=== PATIENT | female | born 1935 | race Caucasian/White ===

== ENCOUNTER → 2017-08-07 | Outpatient (CLI) | payer OTHER ==
--- NOTE | 2017-08-10 13:35 | MAMMOGRAPHY REPORT ---
BILATERAL DIGITAL SCREENING MAMMOGRAM WITH CAD: 08/07/2017 CLINICAL HISTORY: Routine screening. Patient has no complaints. TECHNIQUE: Current study was also evaluated with a Computer Aided Detection (CAD) system. Bilateral CC and MLO views were obtained. COMPARISON: Comparison is made to exams dated: 08/05/2016 mammogram, 08/02/2015 mammogram, 07/26/2012 mammogram, 07/24/2011 mammogram, and 08/01/2014 mammogram - [facility]. BREAST COMPOSITION: There are scattered areas of fibroglandular density in both breasts. FINDINGS: No suspicious masses, calcifications, or areas of architectural distortion are noted in ei ther breast. There has been no significant interval change compared to prior exams. Scattered bilater al benign-appearing calcifications are not significantly changed. IMPRESSION: ACR BI-RADS CATEGORY 2: BENIGN There is no mammographic evidence of malignancy. A 1 year screening mammogram is recommended. The pa tient will receive written notification of the results. Approximately 10% of breast cancers are not detected with mammography. A negative mammographic report should not delay biopsy if a clinically suggestive mass is present. Yvonne Guzman M.D. ah/:08/07/2017 16:42:19 Nail Expert: Verenice GREEN(Ada)(Sachi), [facility] letter sent: Normal 1/2 BI-RADS Code: ACR BI-RADS Category 2: Benign
== END | disposition home or self-care (01) ==
LOC: C.MAMM 10:03
PROVIDERS: ATTEND Internal Medicine
DX: Z12.31 Encounter for screening mammogram for malignant neoplasm of breast (principal)

== ENCOUNTER → 2017-09-07 | Outpatient (CLI) | payer OTHER ==
[2017-09-07 17:15] LABS: ALT/SGPT 19 U/L (12-78); BLOOD UREA NITROGEN 20 mg/dl (7-18); CALCIUM 10.1 mg/dl (8.5-10.1); CARBON DIOXIDE 28 mmol/L (21-32); CHLORIDE 104 mmol/L (98-107); CHOLESTEROL 166 mg/dl (0-200); CREATININE 0.97 mg/dl (0.60-1.20); GLUCOSE 90 mg/dl (70-99); SODIUM 140 mmol/L (136-145)
[2017-09-07 17:17] LABS: HEMATOCRIT 43.9 % (37-47); MEAN CORPUSCULAR HEMOGLOBIN 30.7 pg (25-34); MEAN CORPUSCULAR HGB CONC 34.2 g/dl (32-36); MEAN PLATELET VOLUME 10.5 fL (7.4-10.4); PLATELET COUNT 203 K/uL (130-400); RED BLOOD COUNT 4.88 M/uL (4.2-5.4)
[2017-09-07 17:24] LABS: ALB/GLOB RATIO 0.9 (0.9-2); ALKALINE PHOSPHATASE 91 U/L (45-117); AST/SGOT 13 U/L (15-37); HDL CHOLESTEROL 56 mg/dl; LDL CHOLESTEROL CALCULATED 57 mg/dl; TRIGLYCERIDES 263 mg/dl (0-150); VERY LOW DENSITY LIPOPROT CALC 53 mg/dl
[2017-09-08 05:50] LABS: ESTIMATED AVERAGE GLUCOSE 114 mg/dl; HA1C FLAG Normal (Normal)
== END | disposition home or self-care (01) ==
LOC: C.LABBFT 11:42
PROVIDERS: ATTEND Internal Medicine
DX: R73.01 Impaired fasting glucose (principal); E78.5 Hyperlipidemia, unspecified

== ENCOUNTER 2023-01-02 14:06 | Inpatient (IN) ==
[2023-01-02] MEDS ORDERED: SODIUM CHLORIDE 0.9% 1000ML 1,000 ML IV ONE (14:34)
--- NOTE | 2023-01-02 14:38 | Emergency Department Note ---
Impression & Plan MIRTHA (acute kidney injury), Acute UTI, Leukocytosis, Elevated troponin ED Provider Note NAME: MARCIA RUSSELL AGE: 87 SEX: F : 1935 ARRIVES VIA: Ambulance INFORMANT: Patient, ED PROVIDER(S): Gregg Blount DO CHIEF COMPLAINT: Confusion, falls and weakness HPI: Patient is an 87-year-old female with a past medical history of TIA, hyperlipidemia who presents to the ER for recurrent falls, weakness, and confusion. notes that she has been more confused over the past 2 days. She fell yesterday and again today. She did hit her head slightly today. She complains of right hip pain from the fall today. Denies any headache. No change in vision. No neck pain. No chest pain or shortness of breath. She denies any belly pain. No dysuria, urgency, or frequency. No other exacerbating or remitting factors. No recorded fevers that they are aware of at home. PAST MEDICAL HISTORY:See Below PAST SURGICAL HISTORY:See Below FAMILY HISTORY:See Below SOCIAL HISTORY:See Below HOME MEDICATIONS:See Below ALLERGIES:See Below VITALS:See Below PHYSICAL EXAMINATION: GENERAL: Sitting up in bed, alert, extremely hard of hearing, no acute distress HEAD:NC/AT EYE EXAM: normal conjunctiva. PERRL and EOM's grossly intact. OROPHARYNX: no exudate, no erythema, lips, buccal mucosa, and tongue normal and mucous membranes are moist NECK: supple, no nuchal rigidity, no adenopathy, non-tender LUNGS: Clear to auscultation. Normal chest wall mechanics HEART: no murmurs, S1 normal and S2 normal ABDOMEN: abdomen soft, non-tender, normo-active bowel sounds, no masses, no rebound or guarding. UPPER EXTREMITIES: upper extremities are grossly normal. LOWER EXTREMITIES: No pitting edema. NEURO EXAM: Oriented to person place but not year, cranial nerves II-XII intact, normal speech, no weakness of arms, weakness with a symmetrical in the bilateral lower extremities. No drift. Finger to nose intact. Gross sensation intact. MEDICAL DECISION MAKING: Patient is an 87-year-old female who presents the ER for weakness associate with nausea vomiting and diarrhea. She does have a low-grade fever and slightly tachycardic. Labs are suggestive of leukocytosis of 15,000. No significant anemia. BMP with creatinine 1.4. Troponin was significantly elevated at 180. Lipase normal. UA consistent with UTI which I do favor is likely cause of her symptoms. She denies any chest pain or shortness of breath. EKG does show nonspecific ST wave changes. Patient was given 2 g IV Rocephin as well as IV fluids and discussed with [facility] hospitalist for further evaluation management and treatment. Discussed with Pt concerning signs and symptoms to watch out for. Pt was instructed to follow up with their PCP and discussed with the patient their option to return to the ED at anytime for persistent or worsening symptoms. The appropriate anticipatory guidance and out-patient management, including indications for return to the emergency department, were explained at length to the patient and understood. Triage Nursing notes reviewed. Limited review of prior medical records performed Vital Signs: reviewed and remarkable for no significant abnormalities Differential diagnosis: Differential diagnoses includes but is not limited to toxic, metabolic, infectious, traumatic, cardiac, neurologic, hematologic, psychiatric and inflammatory etiologies. ER treatment provided: See below Diagnostics interpreted by me include EKG and cardiac monitoring as listed below: -Cardiac Monitoring: An order was placed for continuous cardiac monitoring. The monitor shows a rate of 101 with sinus rhythm. -ECG: Sinus tachycardia rate of 100 Left axis No PVCs ST wave depressions V4 through V6 QTc 436 -Laboratory studies:Interpreted by me as stated above in MDM and shown below. Imaging studies: Xrays: As interpreted by me: X-ray of the pelvis and right hip show no acute fracture per my read CTs show: CT head was negative per radiology Consultation(s): Discussed with the hospitalist for further evaluation management and treatment Procedures:none Critical Care: None Past Med/Surg History Medical History (Updated 01/02/23 @ 21:08 by Gregg Blount DO) CKD (chronic kidney disease), stage III Hard of hearing HTN (hypertension) Surgical History History of cataract surgery LEFT History of colonoscopy S/P appendectomy HX S/P total knee arthroplasty HX bilateral, [place] [facility] [place] History Father Pancreatic cancer Mother Alzheimer disease Sister Non Hodgkin's lymphoma Denies family history of Ovarian cancer Prostate cancer Myocardial infarction Breast cancer Colorectal cancer Social History Smoking Status: Never smoker Second Hand Exposure: No; Hx Alcohol Use: No Hx Substance Use: No Preferred Language: Kinyarwanda Communication Ability: Effective Visual Impairment: Limited Hearing Ability: Use of Hearing Aid Co Teacher Required: No Beliefs That Will Affect Care: None marital status: Current Living Situation: Spouse current occupational status: retired Feels Safe at Home: Yes Childhood Exposure to Second-Hand Smoke: No Diet Comment: Regular caffeine: Yes (little amount) during the past year weight has: remained stable Dental Care, Regularly: Yes Physical Activity Frequency: Does not Exercise Seatbelt Use: always Sunscreen Use: No Assistive Devices: Glasses and Hearing Aid - Bilateral Allergies Allergies Allergy/AdvReac Type Severity Reaction Status Date / Time No Known Allergies Allergy Verified 01/02/23 16:09 Home Meds Home Medications Medication Instructions Recorded Confirmed cholecalciferol (vitamin D3) 50 50 mcg PO DAILY 11/14/20 01/02/23 mcg (2,000 unit) capsule acetaminophen 500 mg tablet 500 - 1,000 mg PO DIRECTED PRN 01/02/23 01/02/23 (Tylenol Extra Strength) PAIN/FEVER aspirin 81 mg tablet,delayed 81 mg PO DAILY 01/02/23 01/02/23 release lisinopril 20 mg tablet 20 mg PO QAM 01/02/23 01/02/23 Results & Data (ED) Vital Signs Vital Signs - 24 hr 01/02/23 14:13 01/02/23 14:33 01/02/23 14:45 Temperature 37.7 C H Temperature Source Oral Pulse Rate 101 H 99 H 96 H Pulse Rate from SpO2 Sensor Pulse Rhythm Regular Regular Pulse Strength Normal Respiratory Rate 20 Respiratory Effort / Characteristics Non-Labored Spontaneous Respiratory Depth Normal Respiratory Pattern Regular Blood Pressure 159/93 H Blood Pressure Mean 115 Blood Pressure Position Lying Pulse Oximetry 92 95 Oxygen Delivery Method Room Air Room Air Sepsis Recent Fever Within 48 Hours No Sepsis New/Unexplained Change in Mental Status Yes Sepsis Action Taken by Nursing No Action Required 01/02/23 14:28 01/02/23 14:30 01/02/23 14:40 Temperature Temperature Source Pulse Rate 97 H 99 H 97 H Pulse Rate from SpO2 Sensor 96 H 101 H Pulse Rhythm Pulse Strength Respiratory Rate 33 H 29 H 26 H Respiratory Effort / Characteristics Respiratory Depth Respiratory Pattern Blood Pressure Blood Pressure Mean Blood Pressure Position Pulse Oximetry 92 92 Oxygen Delivery Method Sepsis Recent Fever Within 48 Hours Sepsis New/Unexplained Change in Mental Status Sepsis Action Taken by Nursing 01/02/23 14:50 01/02/23 15:00 01/02/23 15:10 Temperature Temperature Source Pulse Rate 94 H 94 H 93 H Pulse Rate from SpO2 Sensor 95 H 93 H Pulse Rhythm Pulse Strength Respiratory Rate 31 H 29 H 36 H Respiratory Effort / Characteristics Respiratory Depth Respiratory Pattern Blood Pressure Blood Pressure Mean Blood Pressure Position Pulse Oximetry 93 93 93 Oxygen Delivery Method Sepsis Recent Fever Within 48 Hours Sepsis New/Unexplained Change in Mental Status Sepsis Action Taken by Nursing 01/02/23 15:31 01/02/23 15:31 01/02/23 15:40 Temperature Temperature Source Pulse Rate 97 H Pulse Rate from SpO2 Sensor 96 H 97 H Pulse Rhythm Pulse Strength Respiratory Rate 24 Respiratory Effort / Characteristics Respiratory Depth Respiratory Pattern Blood Pressure 125/77 Blood Pressure Mean 93 Blood Pressure Position Pulse Oximetry 93 94 Oxygen Delivery Method Sepsis Recent Fever Within 48 Hours Sepsis New/Unexplained Change in Mental Status Sepsis Action Taken by Nursing 01/02/23 15:50 01/02/23 16:00 01/02/23 16:00 Temperature Temperature Source Pulse Rate 93 H 90 Pulse Rate from SpO2 Sensor 93 H 91 H Pulse Rhythm Pulse Strength Respiratory Rate 25 H 25 H Respiratory Effort / Characteristics Respiratory Depth Respiratory Pattern Blood Pressure 119/68 Blood Pressure Mean 85 Blood Pressure Position Pulse Oximetry 94 96 Oxygen Delivery Method Sepsis Recent Fever Within 48 Hours Sepsis New/Unexplained Change in Mental Status Sepsis Action Taken by Nursing 01/02/23 16:10 01/02/23 16:20 01/02/23 16:30 Temperature Temperature Source Pulse Rate 92 H 88 95 H Pulse Rate from SpO2 Sensor 93 H 89 Pulse Rhythm Pulse Strength Respiratory Rate 19 27 H 29 H Respiratory Effort / Characteristics Respiratory Depth Respiratory Pattern Blood Pressure Blood Pressure Mean Blood Pressure Position Pulse Oximetry 95 96 Oxygen Delivery Method Sepsis Recent Fever Within 48 Hours Sepsis New/Unexplained Change in Mental Status Sepsis Action Taken by Nursing Laboratory Data 01/02/23 14:15 01/02/23 14:15 Lab Results 01/02/23 01/02/23 01/02/23 Range/Units 14:15 14:15 14:40 WBC 15.28 H (4.8-10.8) K/ul RBC 4.55 (4.20-5.40) M/uL Hgb 13.8 (12.0-16.0) g/dl Hct 40.9 (37.0-47.0) % MCV 89.9 (80.0-100.0) fL MCH 30.3 (25.0-34.0) pg MCHC 33.7 (32.0-36.0) g/dL RDW Std Deviation 44.8 (36.4-46.3) fL RDW Coeff of Chris 13.7 (11.5-14.5) % Plt Count 164 (130-400) K/uL MPV 9.9 (9.4-12.4) fL Immature Gran % (Auto) 0.9 % Neut % (Auto) 93.9 % Lymph % (Auto) 2.6 % [place] % (Auto) 2.4 % Eos % (Auto) 0.0 % Baso % (Auto) 0.2 % Neut # (Auto) 14.36 H (1.40-6.50) K/uL Lymph # (Auto) 0.39 L (1.2-3.4) K/uL [place] # (Auto) 0.37 (0.11-0.59) K/uL Eos # (Auto) 0.00 (0-0.50) K/uL Baso # (Auto) 0.03 (0-0.2) K/uL Immature Gran # (Auto) 0.13 (0.01-0.20) K/uL Echinocytes 1+ Sodium 134 L (136-145) mmol/L Potassium 3.9 (3.5-5.1) mmol/L Chloride 100 (98-107) mmol/L Carbon Dioxide 25 (21-32) mmol/L Anion Gap 9 (3-11) BUN 31 H (6-23) mg/dl Creatinine 1.41 H (0.6-1.2) mg/dl Est Cr Clr Drug Dosing 30.7 ml/min Est GFR ( Amer) 38.5 ml/min Est GFR (Non-Af Amer) 33.2 ml/min BUN/Creatinine Ratio 22.0 H (10-20) Glucose 165 H (70-99(Fasting)) mg/dl Calcium 9.7 (8.5-10.1) mg/dl Total Bilirubin 1.4 H (0.2-1.0) mg/dl AST 16 (13-39) U/L ALT 14 (7-52) U/L Alkaline Phosphatase 80 (34-104) U/L Troponin I High Sens 188.0 H* (0-14) pg/ml Total Protein 7.3 (6.0-8.3) gm/dl Albumin 3.8 (3.4-5.0) gm/dl Globulin 3.5 (2.5-4.0) gm/dl Albumin/Globulin Ratio 1.1 (0.9-2) Lipase 19 (11-82) U/L Urine Color Yellow Urine Appearance Turbid A (Clear) Urine pH 5.5 (4.5-7.5) Ur Specific [place] 1.016 (1.000-1.030) Urine Protein 2+ H (Negative) Urine Glucose (UA) Negative (Negative) Urine Ketones Trace H (Negative) Urine Blood 3+ H (Negative) Urine Nitrite Positive A (Negative) Urine Bilirubin Negative (Negative) Urine Urobilinogen Negative (Negative) Ur Leukocyte Esterase 3+ H (Negative) Urine WBC (Auto) >30 H (0-5) /hpf Urine RBC (Auto) >30 H (0-4) /hpf U Hyaline Cast (Auto) 0 (0-5) /lpf U Epithel Cells (Auto) 0-5 (0-5) /lpf Urine Bacteria (Auto) 4+ H (Negative) SARS-CoV-2, RNA, NAAT (NEGATIVE) 01/02/23 Range/Units 14:45 WBC (4.8-10.8) K/ul RBC (4.20-5.40) M/uL Hgb (12.0-16.0) g/dl Hct (37.0-47.0) % MCV (80.0-100.0) fL MCH (25.0-34.0) pg MCHC (32.0-36.0) g/dL RDW Std Deviation (36.4-46.3) fL RDW Coeff of Chris (11.5-14.5) % Plt Count (130-400) K/uL MPV (9.4-12.4) fL Immature Gran % (Auto) % Neut % (Auto) % Lymph % (Auto) % [place] % (Auto) % Eos % (Auto) % Baso % (Auto) % Neut # (Auto) (1.40-6.50) K/uL Lymph # (Auto) (1.2-3.4) K/uL [place] # (Auto) (0.11-0.59) K/uL Eos # (Auto) (0-0.50) K/uL Baso # (Auto) (0-0.2) K/uL Immature Gran # (Auto) (0.01-0.20) K/uL Echinocytes Sodium (136-145) mmol/L Potassium (3.5-5.1) mmol/L Chloride (98-107) mmol/L Carbon Dioxide (21-32) mmol/L Anion Gap (3-11) BUN (6-23) mg/dl Creatinine (0.6-1.2) mg/dl Est Cr Clr Drug Dosing ml/min Est GFR ( Amer) ml/min Est GFR (Non-Af Amer) ml/min BUN/Creatinine Ratio (10-20) Glucose (70-99(Fasting)) mg/dl Calcium (8.5-10.1) mg/dl Total Bilirubin (0.2-1.0) mg/dl AST (13-39) U/L ALT (7-52) U/L Alkaline Phosphatase (34-104) U/L Troponin I High Sens (0-14) pg/ml Total Protein (6.0-8.3) gm/dl Albumin (3.4-5.0) gm/dl Globulin (2.5-4.0) gm/dl Albumin/Globulin Ratio (0.9-2) Lipase (11-82) U/L Urine Color Urine Appearance (Clear) Urine pH (4.5-7.5) Ur Specific [place] (1.000-1.030) Urine Protein (Negative) Urine Glucose (UA) (Negative) Urine Ketones (Negative) Urine Blood (Negative) Urine Nitrite (Negative) Urine Bilirubin (Negative) Urine Urobilinogen (Negative) Ur Leukocyte Esterase (Negative) Urine WBC (Auto) (0-5) /hpf Urine RBC (Auto) (0-4) /hpf U Hyaline Cast (Auto) (0-5) /lpf U Epithel Cells (Auto) (0-5) /lpf Urine Bacteria (Auto) (Negative) SARS-CoV-2, RNA, NAAT NEGATIVE (NEGATIVE) Administered Medications Sodium Chloride (Nss 1000ml) 1,000 mls @ 80 mls/hr IV .[id number] KRISTEN Stop: 01/03/23 07:59 Last Admin: 01/02/23 20:50 Dose: 80 mls/hr Documented By: GARO Discontinued Medications Sodium Chloride (Nss 1000ml) 1,000 mls @ 999 mls/hr IV .[id number] ONE Stop: 01/02/23 15:34 Last Infusion: 01/02/23 15:34 Dose: 0 mls/hr Documented By: Admin: 01/02/23 14:48 Dose: 999 mls/hr Documented By: AMBROSE Ceftriaxone Sodium (Rocephin) 2,000 mg in 70 mls @ 140 mls/hr IV NOW STA Stop: 01/02/23 16:10 Last Infusion: 01/02/23 16:29 Dose: 0 mls/hr Documented By: Admin: 01/02/23 15:53 Dose: 140 mls/hr Documented By: AMBROSE Sodium Chloride (Nss 1000ml) 1,000 mls @ 65 mls/hr IV .[id number] [facility] Stop: 01/04/23 01:46 Last Admin: 01/02/23 20:48 Dose: Not Given Documented By: GARO Lisinopril (Lisinopril 20 Mg Tab) 20 mg PO NOW STA Stop: 01/02/23 17:09 Last Admin: 01/02/23 17:43 Dose: 20 mg Documented By: AMBROSE Imaging Data Radiologist's Impression: Head CT 01/02/23 14:34 CT head/brain wo con CLINICAL HISTORY: 87 years-old Female with fall weak. Acute head injury status post fall. Acute weakness TECHNIQUE: Multiple axial CT images of the head were obtained without contrast. A dose lowering technique was utilized adhering to the principles of ALARA. CT DOSE: 823.94 mGycm COMPARISON: 07/13/2019 FINDINGS: No acute intracranial hemorrhage, midline shift, intracranial mass, hydrocephalu s, territorial ischemia or abnormal extra-axial collection. Involutional changes with chronic microvascular ischemic disease. Cerebral vascular calcifications. The study is motion degraded. The calvarium is intact. Small left scalp contusion. Prior bilateral lens repair. The paranasal sinuses, mastoid air cells, and middle ear cavities are clear. IMPRESSION: No acute intracranial abnormality or calvarial fracture. ACT 112: Negative or not required by law. The above report was generated using voice recognition software. It may contain grammatical, syntax or spelling errors. Electronically signed by: Dio Pan M.D. 01/02/2023 3:34 PM Hip/Pelvis X-Ray 01/02/23 14:34 XR hip RT 2V w pelvis CLINICAL HISTORY: r hip pain. Fall. COMPARISON STUDY: None. FINDINGS: No fracture or dislocation within the pelvis or hips. The sacrum is intact. Mild degenerative changes within the bilateral hips. Soft tissues are unremarkable. IMPRESSION: No fracture or dislocation within the pelvis or hips. ACT 112: Negative or not required by law. Electronically signed by: Dell Landaverde M.D. 01/02/2023 5:00 PM Discharge Plan Visit Data Chief Complaint: Confusion ED Provider: Gregg Blount Discharge Problem: MIRTHA (acute kidney injury), Acute UTI, Leukocytosis, Elevated troponin Patient Disposition: Admitted As Inpatient Discharge Instructions Interventions: ED Discharge Assessment Last Done: 01/02/23 20:17
[2023-01-02 14:52] LABS: Hematocrit (blood only) 40.9 % (37.0-47.0); Hemoglobin 13.8 g/dl (12.0-16.0); Mean Corpuscular Hemoglobin 30.3 pg (25.0-34.0); Mean Corpuscular Hgb Conc 33.7 g/dL (32.0-36.0); Mean Corpuscular Volume 89.9 fL (80.0-100.0); Mean Platelet Volume 9.9 fL (9.4-12.4); Platelet Count 164 K/uL (130-400); RDW Coefficient of Variation 13.7 % (11.5-14.5); RDW Standard Deviation 44.8 fL (36.4-46.3); Red Blood Count 4.55 M/uL (4.20-5.40); White Blood Count 15.28 K/ul (4.8-10.8)
[2023-01-02 15:02] LABS: Appearance Urine Turbid (Clear); Bacteria Urine Automated 4+ (Negative); Bilirubin Urine Negative (Negative); Blood Urine 3+ (Negative); Cast Urine Automated 0 /lpf (0-5); Color Urine Yellow; Epithelial Cell Urine Auto 0-5 /lpf (0-5); Glucose Urine UA Negative (Negative); Ketones Urine Trace (Negative); Leukocyte Esterase Urine 3+ (Negative); Nitrite Urine Positive (Negative); Protein Urine 2+ (Negative); RBC Urine Automated >30 /hpf (0-4); Specific Gravity Urine 1.016 (1.000-1.030); Urobilinogen Urine Negative (Negative); WBC Urine Automated >30 /hpf (0-5); pH Urine 5.5 (4.5-7.5)
[2023-01-02 15:09] LABS: Albumin Globulin Ratio 1.1 (0.9-2); Albumin Level 3.8 gm/dl (3.4-5.0); Bilirubin,Total 1.4 mg/dl (0.2-1.0); Calcium 9.7 mg/dl (8.5-10.1); Creatinine Clr Calc Pharmacy 30.7 ml/min; Est GFR (African American) 38.5 ml/min; Est GFR (Non-African American) 33.2 ml/min; Globulin 3.5 gm/dl (2.5-4.0); Potassium 3.9 mmol/L (3.5-5.1); Total Protein 7.3 gm/dl (6.0-8.3)
[2023-01-02 15:19] LABS: Basophils # (auto) 0.03 K/uL (0-0.2); Basophils % (auto) 0.2 %; Echinocytes 1+; Immature Granulocytes # (auto) 0.13 K/uL (0.01-0.20); Immature Granulocytes % (auto) 0.9 %; Lymphocytes # (auto) 0.39 K/uL (1.2-3.4); Lymphocytes % (auto) 2.6 %; Monocytes # (auto) 0.37 K/uL (0.11-0.59); Monocytes % (auto) 2.4 %; Neutrophils # (auto) 14.36 K/uL (1.40-6.50); Neutrophils % (auto) 93.9 %
--- NOTE | 2023-01-02 15:36 | CT Scan Report ---
CT head/brain wo con CLINICAL HISTORY: 87 years-old Female with fall weak. Acute head injury status post fall. Acute weak ness TECHNIQUE: Multiple axial CT images of the head were obtained without contrast. A dose lowering tech nique was utilized adhering to the principles of ALARA. CT DOSE: 823.94 mGycm COMPARISON: 07/13/2019 FINDINGS: No acute intracranial hemorrhage, midline shift, intracranial mass, hydrocephalus, territorial ischem ia or abnormal extra-axial collection. Involutional changes with chronic microvascular ischemic disea se. Cerebral vascular calcifications. The study is motion degraded. The calvarium is intact. Small left scalp contusion. Prior bilateral lens repair. The paranasal sinus es, mastoid air cells, and middle ear cavities are clear. IMPRESSION: No acute intracranial abnormality or calvarial fracture. ACT 112: Negative or not required by law. The above report was generated using voice recognition software. It may contain grammatical, syntax o r spelling errors. Electronically signed by: Dio Pan M.D. 01/02/2023 3:34 PM
[2023-01-02] MEDS ORDERED: cefTRIAXone SODIUM 2,000 MG/70 ML BAG IV STA (15:41)
--- NOTE | 2023-01-02 16:47 | History & Physical Report ---
Date of Service January 02, 2023 Assessment & Plan (1) Weakness: (2) Fall: Plan: Patient is 87 y/o F with PMH HTN, CKD III presented to ER with c/o weakness x 2 days. Had [address] head: No acute intracranial abnormality or calvarial fracture. Pelvis Xray: No fracture or dislocation within the pelvis or hips. Weakness, fall likely secondary to underlying UTI Treat UTI as below Fall precautions PT/OT (3) UTI (urinary tract infection): Plan: Reported urinary frequency x 1 day In ER T: 37.7C. WBC: 15, UA: +nitrite, 3+ leuk esterace, >30 WBC, 4+bacteria Urine culture pending Blood cultures pending, obtained after initial antibiotics given in ER In ER given Rocephin, 1L NSS Continue Rocephin Gentle IVF CBC, BMP in am (4) Elevated troponin: Plan: High sensitivity troponin: 188 EKG: sinus rhythm, rate 100. No ST elevation noted. No prior EKG to compare Denies CP, SOB May be elevated secondary to CKD. R/O ACS Trend troponin Echo If troponin uptrending or develops CP consider cardiology consult (5) CKD (chronic kidney disease), stage III: Plan: Cr: 1.4. Baseline Cr: 1.2-1.3 Monitor renal functions, avoid nephrotoxic agents when possible (6) HTN (hypertension): Plan: Continue lisinopril DVT Prophylaxis Heparin SQ Conditional Code as per discussion with pt and pt's . States try CPR, defibrillation but would not want intubated or mechanical ventilation. Follows with Dr Rodriguez for routine care Pt was seen and care coordinated with Dr Patterson. See addendum I spent a total of 78 minutes reviewing notes, outpatient records, labs, medication, coordinating, documenting and providing care for this patient excluding time spent in the performance of separately billed services. History of Present Illness Chief Complaint: Weakness Primary Care Provider: Veronica Rodriguez MD Patient is 87 y/o F with PMH HTN, CKD III, ascending aorta enlargement presented to ER with c/o weakness x 2 days. History obtained from patient, patient's and chart review. Reports past 2 days with weakness with ambulating. Using walker to ambulate however had bilateral leg weakness and fell yesterday and once during the night. Was able to help patient get up. She states hit her head "but wasn't hard". Denies syncope, LOC. Denies dizziness, CP, SOB prior to fall. Reports increased urination x 1 day. Denies dysuria, hematuria. noticed patient had chills during the evening. noticed patient coughed a few times last night when she was sleeping. Did not take temperature. states she has been more confused than usual. Reports had constipation and took OTC laxative and yesterday had "good" BM. Reports chronic bilateral knee pain, h/o arthroplasty. Denies diaphoresis, N/V/D, WILSON, dizziness, syncope, vision changes, neck pain, CP, SOB, orthopnea, palpitations, sore throat, choking, otalgia, rhinorrhea, abdominal pain, paresthesias, extremity edema, other extremity pain, rashes, ill contacts. Allergies Allergy/AdvReac Type Severity Reaction Status Date / Time No Known Allergies Allergy Verified 01/02/23 16:09 Home Medications Medication Instructions Recorded Confirmed Type cholecalciferol (vitamin D3) 50 50 mcg PO DAILY 11/14/20 01/02/23 History mcg (2,000 unit) capsule acetaminophen 500 mg tablet 500 - 1,000 mg PO DIRECTED PRN 01/02/23 01/02/23 History (Tylenol Extra Strength) PAIN/FEVER aspirin 81 mg tablet,delayed 81 mg PO DAILY 01/02/23 01/02/23 History release lisinopril 20 mg tablet 20 mg PO QAM 01/02/23 01/02/23 History Past Med/Surg History Medical History (Updated 01/02/23 @ 16:53 by Alla David PA-C) CKD (chronic kidney disease), stage III Hard of hearing HTN (hypertension) Surgical History History of cataract surgery LEFT History of colonoscopy S/P appendectomy HX S/P total knee arthroplasty HX bilateral, Dr Fuentes at [facility] Family History Father Pancreatic cancer Mother Alzheimer disease Sister Non Hodgkin's lymphoma Denies family history of Ovarian cancer Prostate cancer Myocardial infarction Breast cancer Colorectal cancer Social History Smoking Status: Never smoker Second Hand Exposure: No; Hx Alcohol Use: No Hx Substance Use: No Preferred Language: Occitan Communication Ability: Effective Visual Impairment: Limited Hearing Ability: Use of Hearing Aid Concession Manager Required: No Beliefs That Will Affect Care: None marital status: Current Living Situation: Spouse current occupational status: retired Feels Safe at Home: Yes Childhood Exposure to Second-Hand Smoke: No Diet Comment: Regular caffeine: Yes (little amount) during the past year weight has: remained stable Dental Care, Regularly: Yes Physical Activity Frequency: Does not Exercise Seatbelt Use: always Sunscreen Use: No Assistive Devices: Glasses and Hearing Aid - Bilateral Review of Systems Review of Systems: All systems reviewed & are unremarkable except as noted in HPI & below Physical Exam Physical Exam: General: no acute distress, obese Head: normocephalic, atraumatic Eyes: PERRL, EOM's intact, conjunctiva non-injected, anicteric ENT: normal inspection external ears, nose, mucous membranes midly dry Neck: supple, trachea midline, non-tender, ROM intact Lungs: clear, no respiratory distress, no wheezing/rhonchi/rales CV: RRR, no pretibial edema Abd: normal BS, soft, non-tender Ext: no cyanosis, no calf tenderness, Able to extend and flex bilateral arms, elbows, wrists, shoulders. Able to flex and extend bilateral hips and knees, dorsiflexion & plantar flexion of bilateral feet. No ecchymosis or edema noted over knees, +healed surgical incision anterior knees bilaterally. Distal pulses palpable, sensation to light touch intact. Neuro: Alert, oriented to person, place, confused to time, no focal deficits noted, normal affect Skin: warm, dry, right posterior shoulder with ecchymosis Results & Data Results & Data Vital Signs (Past 12 Hours) Vital Signs Temp Pulse Resp BP Pulse Ox O2 Del Method 01/02/23 14:45 96 H 95 Room Air 01/02/23 14:33 99 H 01/02/23 14:13 37.7 C H 101 H 20 159/93 H 92 Room Air Laboratory Results Short CBC 01/02/23 Range/Units 14:15 WBC 15.28 H (4.8-10.8) K/ul Hgb 13.8 (12.0-16.0) g/dl Hct 40.9 (37.0-47.0) % Plt Count 164 (130-400) K/uL BMP 01/02/23 14:15 Sodium 134 L Potassium 3.9 Chloride 100 Carbon Dioxide 25 BUN 31 H Creatinine 1.41 H Glucose 165 H Calcium 9.7 Liver Function 01/02/23 Range/Units 14:15 Total Bilirubin 1.4 H (0.2-1.0) mg/dl AST 16 (13-39) U/L ALT 14 (7-52) U/L Alkaline Phosphatase 80 (34-104) U/L Albumin 3.8 (3.4-5.0) gm/dl Urine 01/02/23 Range/Units 14:40 Urine Color Yellow Urine Appearance Turbid A (Clear) Urine pH 5.5 (4.5-7.5) Ur Specific [place] 1.016 (1.000-1.030) Urine Protein 2+ H (Negative) Urine Glucose (UA) Negative (Negative) Diagnostic Findings Head CT 01/02/23 14:34 CT head/brain wo con CLINICAL HISTORY: 87 years-old Female with fall weak. Acute head injury status post fall. Acute weakness TECHNIQUE: Multiple axial CT images of the head were obtained without contrast. A dose lowering technique was utilized adhering to the principles of ALARA. CT DOSE: 823.94 mGycm COMPARISON: 07/13/2019 FINDINGS: No acute intracranial hemorrhage, midline shift, intracranial mass, hydrocephalus, territorial ischemia or abnormal extra-axial collection. Involutional changes with chronic microvascular ischemic disease. Cerebral vascular calcifications. The study is motion degraded. The calvarium is intact. Small left scalp contusion. Prior bilateral lens repair. The paranasal sinuses, mastoid air cells, and middle ear cavities are clear. IMPRESSION: No acute intracranial abnormality or calvarial fracture. ACT 112: Negative or not required by law. The above report was generated using voice recognition software. It may contain grammatical, syntax or spelling errors. Electronically signed by: Dio Pan M.D. 01/02/2023 3:34 PM Hip/Pelvis X-Ray 01/02/23 14:34 XR hip RT 2V w pelvis CLINICAL HISTORY: r hip pain. Fall. COMPARISON STUDY: None. FINDINGS: No fracture or dislocation within the pelvis or hips. The sacrum is intact. Mild degenerative changes within the bilateral hips. Soft tissues are unremarkable. IMPRESSION: No fracture or dislocation within the pelvis or hips. ACT 112: Negative or not required by law. Electronically signed by: Dell Landaverde M.D. 01/02/2023 5:00 PM Code Status & VTE Plan VTE Prophylaxis Plan VTE Prophylaxis will be ordered: Yes Supervising Physician Co-Signing Physician Notes 87-year-old lady with PMH of HTN, CKD stage III, ascending aorta enlargement presented to the ED 01/02 with complaint of fall yesterday and today secondary to BLE weakness. Also her /sons at bedside report that she had decreased appetite since last few days and somewhat decreased fluid intake as well. Also they reported some confusion in the morning of the day of arrival. Patient does use walker at baseline and is hard of hearing. Patient denies any funny sen sation in the chest or chest pain or nausea/warmth throughout the body just prior to fall or any other loss of consciousness. Patient did hit her back of head over the carpeted floor but both the time patient slumped down to the floor rather than abruptly falling. Labs with elevated WBC, UA suggestive of UTI, creatinine slightly elevated indicating dehydration to developing MIRTHA, patient is alert and oriented x3. Admitting CT head and x-ray right hip with pelvis with no acute findings. Patient will be treated with Rocephin for UTI, gentle IV fluid, BMP in AM. Troponin elevated, likely secondary to acute illness. Rule out ACS, trend troponin, follow-up on echo. Patient with no chest pain. Consider Cardio consult if abn echo or uptrending trops or pt develops chest pain. On examination: GENERAL: Alert and oriented x3. NAD, on RA. HEENT: No pallor, no icterus. Pupils equal, round and reactive to light. Oral mucosa moist. NECK: No JVD, no neck masses. HEART: S1 and S2 heard. Regular rate and rhythm. Systolic murmur at aortic area, no gallop. RESPIRATORY SYSTEM: Normal AP diameter. No accessory muscle use. No wheezing, no crackles. ABDOMEN: Soft, bowel sounds present, nontender, no distention. CENTRAL NERVOUS SYSTEM: No facial droop. Speech is clear. Obeys simple commands. Moves extremities. EXTREMITIES: No edema, no erythema seen. C-spine/chest/shoulder girdle/pelvic girdle compression test negative, no bruise or open wound noted. I have seen and examined the patient and have discussed the case with the provider above. I agree with the assessment and plan as stated.
--- NOTE | 2023-01-02 17:02 | XRay Report ---
XR hip RT 2V w pelvis CLINICAL HISTORY: r hip pain. Fall. COMPARISON STUDY: None. FINDINGS: No fracture or dislocation within the pelvis or hips. The sacrum is intact. Mild degenerati ve changes within the bilateral hips. Soft tissues are unremarkable. IMPRESSION: No fracture or dislocation within the pelvis or hips. ACT 112: Negative or not required by law. Electronically signed by: Dell Landaverde M.D. 01/02/2023 5:00 PM
[2023-01-02] MEDS ORDERED: lisinopril 20 MG TAB PO STA (17:08)
[2023-01-02] MEDS ORDERED: SODIUM CHLORIDE 0.9% 1000ML 1,000 ML IV SCH ×2 (19:00→19:30)
[2023-01-02] MEDS ORDERED: POLYETHYLENE (MIRALAX) 17 GM PACK PO PRN (19:30)
[2023-01-02] MEDS ORDERED: ACETAMINOPHEN 325 MG TAB PO PRN (19:30)
[2023-01-02] MEDS ORDERED: ONDANSETRON INJ 2 MG/ML 2 ML VIAL IV PRN (19:30)
[2023-01-02] MEDS: HEPARIN SOD 5,000 UNIT/0.5 ML VIAL SQ SCH (22:53)
[2023-01-03 04:33] LABS: Basophils # (auto) 0.02 K/uL (0-0.2); Basophils % (auto) 0.2 %; Eosinophils # (auto) 0.04 K/uL (0-0.50); Eosinophils % (auto) 0.3 %; Hematocrit (blood only) 37.1 % (37.0-47.0); Hemoglobin 12.7 g/dl (12.0-16.0); Immature Granulocytes # (auto) 0.05 K/uL (0.01-0.20); Immature Granulocytes % (auto) 0.4 %; Lymphocytes # (auto) 0.61 K/uL (1.2-3.4); Lymphocytes % (auto) 4.9 %; Mean Corpuscular Hemoglobin 30.2 pg (25.0-34.0); Mean Corpuscular Hgb Conc 34.2 g/dL (32.0-36.0); Mean Corpuscular Volume 88.1 fL (80.0-100.0); Mean Platelet Volume 9.9 fL (9.4-12.4); Monocytes # (auto) 0.56 K/uL (0.11-0.59); Monocytes % (auto) 4.5 %; Neutrophils # (auto) 11.22 K/uL (1.40-6.50); Neutrophils % (auto) 89.7 %; Platelet Count 155 K/uL (130-400); RDW Coefficient of Variation 13.9 % (11.5-14.5); RDW Standard Deviation 44.7 fL (36.4-46.3); Red Blood Count 4.21 M/uL (4.20-5.40)
[2023-01-03 04:45] LABS: BUN Creatinine Ratio 23.9 (10-20); Calcium 8.9 mg/dl (8.5-10.1); Creatinine Clr Calc Pharmacy 38.7 ml/min; Est GFR (African American) 52.5 ml/min; Est GFR (Non-African American) 45.3 ml/min; Potassium 3.5 mmol/L (3.5-5.1)
[2023-01-03 05:45] LABS: Troponin I High Sensitivity 120.2 pg/ml (0-14)
--- NOTE | 2023-01-03 07:43 | Electrocardiogram Report ---
Test Reason : Blood Pressure : / mmHG Vent. Rate : 100 BPM Atrial Rate : 100 BPM P-R Int : 160 ms QRS Dur : 102 ms QT Int : 338 ms P-R-T Axes : 013 -53 094 degrees QTc Int : 436 ms Normal sinus rhythm Left axis deviation Left ventricular hypertrophy with repolarization abnormality Poor R wave progression, consider anterior PA vs. lead placement vs. LVH Abnormal ECG No previous ECGs available Confirmed by Martín Luis ([id number]) on 01/03/2023 7:43:36 AM Referred By: REFERRED SELF Confirmed By:Andres Luis
[2023-01-03] MEDS: CHOLECALCIFEROL 1,000 UNITS 25 MCG TAB PO SCH (08:30)
[2023-01-03] MEDS: ASPIRIN 81 MG ECTAB PO SCH (08:30)
[2023-01-03] MEDS: HEPARIN SOD 5,000 UNIT/0.5 ML VIAL SQ SCH ×2 (08:31→21:49)
[2023-01-03] MEDS: lisinopril 20 MG TAB PO SCH (08:31)
[2023-01-03] MEDS: cefTRIAXone SODIUM 2,000 MG in DEXTROSE 5% 50 ML IV SCH (08:43)
--- NOTE | 2023-01-03 09:11 | Hospitalist Progress Note ---
Date of Service January 03, 2023 Assessment & Plan (1) Weakness: (2) Fall: Plan: Patient is 87 y/o F with HTN, CKD III presented to ER with c/o weakness x 2 days. Had [address] head: No acute intracranial abnormality or calvarial fracture. Pelvis Xray: No fracture or dislocation within the pelvis or hips. Weakness, fall likely secondary to underlying UTI Treat UTI as below Fall precautions PT/OT (3) UTI (urinary tract infection): Plan: Reported urinary frequency x 1 day In ER T: 37.7C. WBC: 15, UA: +nitrite, 3+ leuk esterase, >30 WBC, 4+bacteria Urine culture - GNB Blood cultures pending, obtained after initial antibiotics given in ER In ER given Rocephin, 1L NSS Continue Rocephin Gentle IVF CBC, BMP in am (4) Elevated troponin: Plan: High sensitivity troponin: 188 EKG: sinus rhythm, rate 100. No ST elevation noted. No prior EKG to compare Denies CP, SOB May be elevated secondary to CKD. R/O ACS Troponin peaked at 250 and downtrended Echo obtained - EF 65-70%. Severe concentric LVH. LV wall motion is normal. Grade 1 diastolic dysfunction. Aortic valve leaflets are moderately calcified with only mild restriction of leaflet mobility. No hemodynamically significant valvular aortic stenosis. There is trace tricuspid regurg. Doppler findings do not suggest pulmonary hypertension. If develops CP consider cardiology consult (5) CKD (chronic kidney disease), stage III: Plan: Cr: 1.4. Baseline Cr: 1.2-1.3 Cr down to 1.09 Monitor renal functions, avoid nephrotoxic agents when possible (6) HTN (hypertension): Plan: Continue lisinopril DVT Prophylaxis Heparin SQ Conditional Code as per discussion with pt and pt's . States try CPR, defibrillation but would not want intubated or mechanical ventilation. Follows with Dr Rodriguez for routine care Admission and Anticipated Discharge Date Admission Date: January 02, 2023 Subjective Pt seen in follow up of UTI, s/p fall Currently laying in bed, in no acute distress Patient is very hard of hearing She says she feels better since admission No chest pain shortness of breath, no abdominal pain, however reports having a loose stool today Review of Systems Review of Systems: All systems reviewed & are unremarkable except as noted in Subjective Physical Exam Physical Exam: General: elderly F in no acute distress, obese Head: normocephalic, atraumatic Eyes: PERRL, EOM's intact ENT: normal inspection external ears, nose Neck: supple Lungs: clear, no respiratory distress, no wheezing/rhonchi/rales CV: RRR, no pretibial edema Abd: normal BS, soft, non-tender Ext: moves extremities, no le edema Neuro: Awake alert, able to answer simple questions appropriately, however very hard of hearing. Speech fluent, no facial asymmetry, moves extremities. Skin: warm, dry, right posterior shoulder with ecchymosis Results & Data Results & Data Vital Signs (Past 12 Hours) Vital Signs Temp Pulse Pulse Resp BP Pulse Ox O2 Del Method 01/03/23 07:47 36.7 C 67 18 103/68 92 Room Air 01/03/23 07:42 66 01/02/23 23:48 69 01/03/23 02:49 36.8 C 77 18 116/69 95 Room Air 01/02/23 23:05 36.7 C 77 18 111/71 93 Room Air Laboratory Results 01/03/23 01/03/23 01/02/23 Range/Units 04:03 04:03 22:34 WBC 12.50 H (4.8-10.8) K/ul RBC 4.21 (4.20-5.40) M/uL Hgb 12.7 (12.0-16.0) g/dl Hct 37.1 (37.0-47.0) % MCV 88.1 (80.0-100.0) fL MCH 30.2 (25.0-34.0) pg MCHC 34.2 (32.0-36.0) g/dL RDW Std Deviation 44.7 (36.4-46.3) fL RDW Coeff of Chris 13.9 (11.5-14.5) % Plt Count 155 (130-400) K/uL MPV 9.9 (9.4-12.4) fL Immature Gran % (Auto) 0.4 % Neut % (Auto) 89.7 % Lymph % (Auto) 4.9 % Johnston % (Auto) 4.5 % Eos % (Auto) 0.3 % Baso % (Auto) 0.2 % Neut # (Auto) 11.22 H (1.40-6.50) K/uL Lymph # (Auto) 0.61 L (1.2-3.4) K/uL Johnston # (Auto) 0.56 (0.11-0.59) K/uL Eos # (Auto) 0.04 (0-0.50) K/uL Baso # (Auto) 0.02 (0-0.2) K/uL Immature Gran # (Auto) 0.05 (0.01-0.20) K/uL Echinocytes Sodium 136 (136-145) mmol/L Potassium 3.5 (3.5-5.1) mmol/L Chloride 105 (98-107) mmol/L Carbon Dioxide 23 (21-32) mmol/L Anion Gap 8 (3-11) BUN 26 H (6-23) mg/dl Creatinine 1.09 D (0.6-1.2) mg/dl Est Cr Clr Drug Dosing 38.7 ml/min Est GFR ( Amer) 52.5 ml/min Est GFR (Non-Af Amer) 45.3 ml/min BUN/Creatinine Ratio 23.9 H (10-20) Glucose 126 H (70-99(Fasting)) mg/dl Calcium 8.9 (8.5-10.1) mg/dl Total Bilirubin (0.2-1.0) mg/dl AST (13-39) U/L ALT (7-52) U/L Alkaline Phosphatase (34-104) U/L Troponin I High Sens 120.2 H* D 194.0 H* D (0-14) pg/ml Total Protein (6.0-8.3) gm/dl Albumin (3.4-5.0) gm/dl Globulin (2.5-4.0) gm/dl Albumin/Globulin Ratio (0.9-2) Lipase (11-82) U/L Urine Color Urine Appearance (Clear) Urine pH (4.5-7.5) Ur Specific [place] (1.000-1.030) Urine Protein (Negative) Urine Glucose (UA) (Negative) Urine Ketones (Negative) Urine Blood (Negative) Urine Nitrite (Negative) Urine Bilirubin (Negative) Urine Urobilinogen (Negative) Ur Leukocyte Esterase (Negative) Urine WBC (Auto) (0-5) /hpf Urine RBC (Auto) (0-4) /hpf U Hyaline Cast (Auto) (0-5) /lpf U Epithel Cells (Auto) (0-5) /lpf Urine Bacteria (Auto) (Negative) SARS-CoV-2, RNA, NAAT (NEGATIVE) 01/02/23 01/02/23 01/02/23 Range/Units 18:10 14:45 14:40 WBC (4.8-10.8) K/ul RBC (4.20-5.40) M/uL Hgb (12.0-16.0) g/dl Hct (37.0-47.0) % MCV (80.0-100.0) fL MCH (25.0-34.0) pg MCHC (32.0-36.0) g/dL RDW Std Deviation (36.4-46.3) fL RDW Coeff of Chris (11.5-14.5) % Plt Count (130-400) K/uL MPV (9.4-12.4) fL Immature Gran % (Auto) % Neut % (Auto) % Lymph % (Auto) % Johnston % (Auto) % Eos % (Auto) % Baso % (Auto) % Neut # (Auto) (1.40-6.50) K/uL Lymph # (Auto) (1.2-3.4) K/uL Johnston # (Auto) (0.11-0.59) K/uL Eos # (Auto) (0-0.50) K/uL Baso # (Auto) (0-0.2) K/uL Immature Gran # (Auto) (0.01-0.20) K/uL Echinocytes Sodium (136-145) mmol/L Potassium (3.5-5.1) mmol/L Chloride (98-107) mmol/L Carbon Dioxide (21-32) mmol/L Anion Gap (3-11) BUN (6-23) mg/dl Creatinine (0.6-1.2) mg/dl Est Cr Clr Drug Dosing ml/min Est GFR ( Amer) ml/min Est GFR (Non-Af Amer) ml/min BUN/Creatinine Ratio (10-20) Glucose (70-99(Fasting)) mg/dl Calcium (8.5-10.1) mg/dl Total Bilirubin (0.2-1.0) mg/dl AST (13-39) U/L ALT (7-52) U/L Alkaline Phosphatase (34-104) U/L Troponin I High Sens 250.1 H* D (0-14) pg/ml Total Protein (6.0-8.3) gm/dl Albumin (3.4-5.0) gm/dl Globulin (2.5-4.0) gm/dl Albumin/Globulin Ratio (0.9-2) Lipase (11-82) U/L Urine Color Yellow Urine Appearance Turbid A (Clear) Urine pH 5.5 (4.5-7.5) Ur Specific [place] 1.016 (1.000-1.030) Urine Protein 2+ H (Negative) Urine Glucose (UA) Negative (Negative) Urine Ketones Trace H (Negative) Urine Blood 3+ H (Negative) Urine Nitrite Positive A (Negative) Urine Bilirubin Negative (Negative) Urine Urobilinogen Negative (Negative) Ur Leukocyte Esterase 3+ H (Negative) Urine WBC (Auto) >30 H (0-5) /hpf Urine RBC (Auto) >30 H (0-4) /hpf U Hyaline Cast (Auto) 0 (0-5) /lpf U Epithel Cells (Auto) 0-5 (0-5) /lpf Urine Bacteria (Auto) 4+ H (Negative) SARS-CoV-2, RNA, NAAT NEGATIVE (NEGATIVE) 01/02/23 01/02/23 Range/Units 14:15 14:15 WBC 15.28 H (4.8-10.8) K/ul RBC 4.55 (4.20-5.40) M/uL Hgb 13.8 (12.0-16.0) g/dl Hct 40.9 (37.0-47.0) % MCV 89.9 (80.0-100.0) fL MCH 30.3 (25.0-34.0) pg MCHC 33.7 (32.0-36.0) g/dL RDW Std Deviation 44.8 (36.4-46.3) fL RDW Coeff of Chris 13.7 (11.5-14.5) % Plt Count 164 (130-400) K/uL MPV 9.9 (9.4-12.4) fL Immature Gran % (Auto) 0.9 % Neut % (Auto) 93.9 % Lymph % (Auto) 2.6 % [place] % (Auto) 2.4 % Eos % (Auto) 0.0 % Baso % (Auto) 0.2 % Neut # (Auto) 14.36 H (1.40-6.50) K/uL Lymph # (Auto) 0.39 L (1.2-3.4) K/uL Johnston # (Auto) 0.37 (0.11-0.59) K/uL Eos # (Auto) 0.00 (0-0.50) K/uL Baso # (Auto) 0.03 (0-0.2) K/uL Immature Gran # (Auto) 0.13 (0.01-0.20) K/uL Echinocytes 1+ Sodium 134 L (136-145) mmol/L Potassium 3.9 (3.5-5.1) mmol/L Chloride 100 (98-107) mmol/L Carbon Dioxide 25 (21-32) mmol/L Anion Gap 9 (3-11) BUN 31 H (6-23) mg/dl Creatinine 1.41 H (0.6-1.2) mg/dl Est Cr Clr Drug Dosing 30.7 ml/min Est GFR ( Amer) 38.5 ml/min Est GFR (Non-Af Amer) 33.2 ml/min BUN/Creatinine Ratio 22.0 H (10-20) Glucose 165 H (70-99(Fasting)) mg/dl Calcium 9.7 (8.5-10.1) mg/dl Total Bilirubin 1.4 H (0.2-1.0) mg/dl AST 16 (13-39) U/L ALT 14 (7-52) U/L Alkaline Phosphatase 80 (34-104) U/L Troponin I High Sens 188.0 H* (0-14) pg/ml Total Protein 7.3 (6.0-8.3) gm/dl Albumin 3.8 (3.4-5.0) gm/dl Globulin 3.5 (2.5-4.0) gm/dl Albumin/Globulin Ratio 1.1 (0.9-2) Lipase 19 (11-82) U/L Urine Color Urine Appearance (Clear) Urine pH (4.5-7.5) Ur Specific [place] (1.000-1.030) Urine Protein (Negative) Urine Glucose (UA) (Negative) Urine Ketones (Negative) Urine Blood (Negative) Urine Nitrite (Negative) Urine Bilirubin (Negative) Urine Urobilinogen (Negative) Ur Leukocyte Esterase (Negative) Urine WBC (Auto) (0-5) /hpf Urine RBC (Auto) (0-4) /hpf U Hyaline Cast (Auto) (0-5) /lpf U Epithel Cells (Auto) (0-5) /lpf Urine Bacteria (Auto) (Negative) SARS-CoV-2, RNA, NAAT (NEGATIVE) Medications Administered Current Inpatient Medications Acetaminophen (Acetaminophen 325 Mg Tab) 650 mg PO Q4H PRN PRN Reason: Pain or Fever Stop: 02/01/23 19:29 Aspirin (Aspirin 81 Mg Ectab) 81 mg PO DAILY [facility] Stop: 02/02/23 08:59 Last Admin: 01/03/23 08:30 Dose: 81 mg Heparin Sodium (Porcine) (Heparin Sod 5,000 Unit/0.5 Ml Vial) 5,000 units SQ Q12 [facility] Stop: 02/01/23 20:59 Last Admin: 01/03/23 08:31 Dose: 5,000 units Ceftriaxone Sodium 2,000 mg/ (Dextrose) 70 mls @ 100 mls/hr IV Q24H [facility]; Protocol Stop: 01/08/23 08:59 Last Admin: 01/03/23 08:43 Dose: 100 mls/hr Lisinopril (Lisinopril 20 Mg Tab) 20 mg PO QAM [facility] Stop: 02/02/23 08:59 Last Admin: 01/03/23 08:31 Dose: 20 mg Ondansetron HCl (Ondansetron Inj 2 Mg/Ml 2 Ml Vial) 4 mg IV Q6H PRN PRN Reason: Nausea Stop: 02/01/23 19:29 Polyethylene Glycol (Polyethylene (Miralax) 17 Gm Pack) 17 gm PO DAILY PRN PRN Reason: Constipation Stop: 02/01/23 19:29 Vitamin D (Cholecalciferol 1,000 Units 25 Mcg Tab) 2,000 units PO DAILY [facility] Stop: 02/02/23 08:59 Last Admin: 01/03/23 08:30 Dose: 2,000 units
[2023-01-03] MEDS ORDERED: POTASSIUM CHLORIDE PWD 20 MEQ PACK PO ONE (09:13)
[2023-01-03] MEDS: ADVANCED PROBIOTIC 1250 MG CAPSULE PO SCH (13:03)
[2023-01-03 15:25] LABS: A calco-baum cmplx NotReported Not Detected (NotDetected); Bact fragilis Not Reported Not Detected (NotDetected); C auris Not Reported Not Detected (NotDetected); Calbicans Not Reported Not Detected (NotDetected); Candida glabrata Not Reported Not Detected (NotDetected); Candida krusei Not Reported Not Detected (NotDetected); Cneoformans/gatti Not Reported Not Detected (NotDetected); Cparapsilosis Not Reported Not Detected (NotDetected); Ctropicalis Not Reported Not Detected (NotDetected); E cloacae compx Not Reported Not Detected (NotDetected); Efaecalis Not Reported Not Detected (NotDetected); Efaecium Not Reported Not Detected (NotDetected); Enterobacterales Not Reported Not Detected (NotDetected); Escherichia coli Not Reported Not Detected (NotDetected); H influenzae Not Reported Not Detected (NotDetected); K aerogenes Not Reported Not Detected (NotDetected); Koxytoca Not Reported Not Detected (NotDetected); Kpneumoniae grp Not Reported Not Detected (NotDetected); Lmonocyt Not Reported Not Detected (NotDetected); N meningitidis Not Reported Not Detected (NotDetected); P aeruginosa Not Reported Not Detected (NotDetected); Proteus spp Not Reported Not Detected (NotDetected); Salmonella spp Not Reported Not Detected (NotDetected); Smarcescens Not Reported Not Detected (NotDetected); Staph lugdunensis Not Reported Not Detected (NotDetected); Staph spp. Not Reported DETECTED (NotDetected); Staphaureus Not Reported Not Detected (NotDetected); Staphepi Not Reported Not Detected (NotDetected); Stenmaltophilia Not Reported Not Detected (NotDetected); Strep agal(GrpB) Not Reported Not Detected (NotDetected); Strep pneum Not Reported Not Detected (NotDetected); Strep pyog (GrpA) Not Reported Not Detected (NotDetected); Strep spp Not Reported Not Detected (NotDetected)
[2023-01-03 15:35] LABS: Staphylococcus spp. DETECTED (NotDetected)
[2023-01-03] MEDS: DAPTOmycin 425 MG in SYRINGE 0 ML IV SCH (18:11)
[2023-01-04 06:54] LABS: Hematocrit (blood only) 36.3 % (37.0-47.0); Hemoglobin 12.4 g/dl (12.0-16.0); Mean Corpuscular Hemoglobin 30.2 pg (25.0-34.0); Mean Corpuscular Hgb Conc 34.2 g/dL (32.0-36.0); Mean Corpuscular Volume 88.5 fL (80.0-100.0); Mean Platelet Volume 10.2 fL (9.4-12.4); Platelet Count 149 K/uL (130-400); RDW Coefficient of Variation 13.5 % (11.5-14.5); RDW Standard Deviation 43.8 fL (36.4-46.3); White Blood Count 9.69 K/ul (4.8-10.8)
[2023-01-04 07:32] LABS: BUN Creatinine Ratio 17.5 (10-20); Calcium 8.3 mg/dl (8.5-10.1); Creatinine Clr Calc Pharmacy 52.6 ml/min; Est GFR (African American) 76.3 ml/min; Est GFR (Non-African American) 65.8 ml/min; Magnesium 1.8 mg/dl (1.7-2.4); Phosphorus 1.7 mg/dl (2.5-4.9); Potassium 3.7 mmol/L (3.5-5.1)
--- NOTE | 2023-01-04 07:39 | Hospitalist Progress Note ---
Date of Service January 04, 2023 Assessment & Plan (1) Weakness: (2) Fall: Plan: Patient is 87 y/o F with HTN, CKD III presented to ER with c/o weakness x 2 days. Had [address] head: No acute intracranial abnormality or calvarial fracture. Pelvis Xray: No fracture or dislocation within the pelvis or hips. Weakness, fall likely secondary to underlying UTI Treat UTI as below Fall precautions PT/OT (3) UTI (urinary tract infection): Plan: Reported urinary frequency x 1 day In ER T: 37.7C. WBC: 15, UA: +nitrite, 3+ leuk esterase, >30 WBC, 4+bacteria Urine culture - E. coli pansensitive Blood cultures pending, obtained after initial antibiotics given in ER 1 blood culture positive for gram-positive cocci in clusters/staph -possible contaminant, however for now will cover with daptomycin. Repeat blood cultures. Continue to closely monitor. In ER given Rocephin, 1L NSS Continue Rocephin for UTIU, dapto for poss. bacteremia Gentle IVF CBC, BMP in am (4) Elevated troponin: Plan: High sensitivity troponin: 188 EKG: sinus rhythm, rate 100. No ST elevation noted. No prior EKG to compare Denies CP, SOB May be elevated secondary to CKD. R/O ACS Troponin peaked at 250 and downtrended Echo obtained - EF 65-70%. Severe concentric LVH. LV wall motion is normal. Grade 1 diastolic dysfunction. Aortic valve leaflets are moderately calcified with only mild restriction of leaflet mobility. No hemodynamically significant valvular aortic stenosis. There is trace tricuspid regurg. Doppler findings do not suggest pulmonary hypertension. If develops CP consider cardiology consult (5) CKD (chronic kidney disease), stage III: Plan: Cr: 1.4. Baseline Cr: 1.2-1.3 Cr down to 0.8 Monitor renal functions, avoid nephrotoxic agents when possible (6) HTN (hypertension): Plan: lisinopril on hold for now DVT Prophylaxis Heparin SQ Conditional Code as per discussion with pt and pt's . States try CPR, defibrillation but would not want intubated or mechanical ventilation. Follows with Dr Rodriguez for routine care Admission and Anticipated Discharge Date Admission Date: January 02, 2023 Subjective Pt seen in follow up of UTI, s/p fall Currently sitting up in chair, in no acute distress. Seen walking w/ PT. Patient is hard of hearing She says she feels much better since admission. Currently has no complaints. No chest pain shortness of breath, no abdominal pain. Review of Systems Review of Systems: All systems reviewed & are unremarkable except as noted in Subjective Physical Exam Physical Exam: General: elderly F in no acute distress, obese Head: normocephalic, atraumatic Eyes: PERRL, EOM's intact ENT: normal inspection external ears, nose Neck: supple Lungs: clear, no respiratory distress, no wheezing/rhonchi/rales CV: RRR, no pretibial edema Abd: normal BS, soft, non-tender Ext: moves extremities, no le edema Neuro: Awake alert, able to answer simple questions appropriately, however very hard of hearing. Speech fluent, no facial asymmetry, moves extremities. Skin: warm, dry, right posterior shoulder with ecchymosis Results & Data Results & Data Vital Signs (Past 12 Hours) Vital Signs Temp Pulse Pulse Resp BP Pulse Ox O2 Del Method 01/04/23 03:06 36.8 C 68 18 113/66 94 Room Air 01/03/23 23:36 75 01/03/23 22:59 37.0 C 70 18 146/80 H 95 Room Air Laboratory Results 01/04/23 01/04/23 01/02/23 Range/Units 06:20 06:20 16:31 WBC 9.69 (4.8-10.8) K/ul RBC 4.10 L (4.20-5.40) M/uL Hgb 12.4 (12.0-16.0) g/dl Hct 36.3 L (37.0-47.0) % MCV 88.5 (80.0-100.0) fL MCH 30.2 (25.0-34.0) pg MCHC 34.2 (32.0-36.0) g/dL RDW Std Deviation 43.8 (36.4-46.3) fL RDW Coeff of Chris 13.5 (11.5-14.5) % Plt Count 149 (130-400) K/uL MPV 10.2 (9.4-12.4) fL Sodium 136 (136-145) mmol/L Potassium 3.7 (3.5-5.1) mmol/L Chloride 106 (98-107) mmol/L Carbon Dioxide 23 (21-32) mmol/L Anion Gap 7 (3-11) BUN 14 (6-23) mg/dl Creatinine 0.80 (0.6-1.2) mg/dl Est Cr Clr Drug Dosing 52.6 ml/min Est GFR ( Amer) 76.3 ml/min Est GFR (Non-Af Amer) 65.8 ml/min BUN/Creatinine Ratio 17.5 (10-20) Glucose 114 H (70-99(Fasting)) mg/dl Calcium 8.3 L (8.5-10.1) mg/dl Phosphorus 1.7 L (2.5-4.9) mg/dl Magnesium 1.8 (1.7-2.4) mg/dl Staphylococcus sp PCR DETECTED A (NotDetected) Bld Cult ID Panel PCR See PCR Comment (NotDetected) Medications Administered Current Inpatient Medications Acetaminophen (Acetaminophen 325 Mg Tab) 650 mg PO Q4H PRN PRN Reason: Pain or Fever Stop: 02/01/23 19:29 Aspirin (Aspirin 81 Mg Ectab) 81 mg PO DAILY [facility] Stop: 02/02/23 08:59 Last Admin: 01/03/23 08:30 Dose: 81 mg Heparin Sodium (Porcine) (Heparin Sod 5,000 Unit/0.5 Ml Vial) 5,000 units SQ Q12 KRISTEN Stop: 02/01/23 20:59 Last Admin: 01/03/23 21:49 Dose: 5,000 units Ceftriaxone Sodium 2,000 mg/ (Dextrose) 70 mls @ 100 mls/hr IV Q24H KRISTEN; Protocol Stop: 01/08/23 08:59 Last Infusion: 01/03/23 09:25 Dose: Infused Daptomycin 425 mg/ Syringe 8.5 mls @ 0 mls/min IV Q24H KRISTEN; Protocol Stop: 01/05/23 17:59 Last Admin: 01/03/23 18:11 Dose: 8.5 mls/min Lactobacillus Acidophilus (Advanced Probiotic 1250 Mg Capsule) 2 cap PO DAILY KRISTEN Stop: 02/02/23 11:44 Last Admin: 01/03/23 13:03 Dose: 2 cap Lisinopril (Lisinopril 20 Mg Tab) 20 mg PO QAM KRISTEN Stop: 02/02/23 08:59 Last Admin: 03/18/23 08:31 Dose: 20 mg Ondansetron HCl (Ondansetron Inj 2 Mg/Ml 2 Ml Vial) 4 mg IV Q6H PRN PRN Reason: Nausea Stop: 02/01/23 19:29 Polyethylene Glycol (Polyethylene (Miralax) 17 Gm Pack) 17 gm PO DAILY PRN PRN Reason: Constipation Stop: 02/01/23 19:29 Potassium Phosphate (Pot Phosphate Monobasic W/ Sod Tab) 1 tab PO TID [facility] Stop: 02/03/23 08:59 Vitamin D (Cholecalciferol 1,000 Units 25 Mcg Tab) 2,000 units PO DAILY KRISTEN Stop: 02/02/23 08:59 Last Admin: 01/03/23 08:30 Dose: 2,000 units
[2023-01-04] MEDS: ASPIRIN 81 MG ECTAB PO SCH (08:53)
[2023-01-04] MEDS: CHOLECALCIFEROL 1,000 UNITS 25 MCG TAB PO SCH (08:53)
[2023-01-04] MEDS: POT PHOSPHATE MONOBASIC W/ SOD TAB PO SCH ×3 (08:53→20:09)
[2023-01-04] MEDS: cefTRIAXone SODIUM 2,000 MG in DEXTROSE 5% 50 ML IV SCH (08:53)
[2023-01-04] MEDS: HEPARIN SOD 5,000 UNIT/0.5 ML VIAL SQ SCH ×2 (08:54→20:09)
[2023-01-04] MEDS: ADVANCED PROBIOTIC 1250 MG CAPSULE PO SCH (08:54)
[2023-01-04] MEDS: DAPTOmycin 425 MG in SYRINGE 0 ML IV SCH (18:39)
[2023-01-05 06:42] LABS: Hematocrit (blood only) 36.7 % (37.0-47.0); Hemoglobin 12.6 g/dl (12.0-16.0); Mean Corpuscular Hemoglobin 29.8 pg (25.0-34.0); Mean Corpuscular Hgb Conc 34.3 g/dL (32.0-36.0); Mean Corpuscular Volume 86.8 fL (80.0-100.0); Mean Platelet Volume 10.2 fL (9.4-12.4); Platelet Count 162 K/uL (130-400); RDW Coefficient of Variation 13.4 % (11.5-14.5); RDW Standard Deviation 42.9 fL (36.4-46.3); Red Blood Count 4.23 M/uL (4.20-5.40); White Blood Count 7.24 K/ul (4.8-10.8)
[2023-01-05 06:57] LABS: BUN Creatinine Ratio 15.9 (10-20); Calcium 8.3 mg/dl (8.5-10.1); Creatinine Clr Calc Pharmacy 51.1 ml/min; Est GFR (Non-African American) 63.9 ml/min; Potassium 3.7 mmol/L (3.5-5.1)
[2023-01-05] MEDS: cefTRIAXone SODIUM 2,000 MG in DEXTROSE 5% 50 ML IV SCH (08:53)
[2023-01-05] MEDS: HEPARIN SOD 5,000 UNIT/0.5 ML VIAL SQ SCH ×2 (08:53→20:35)
[2023-01-05] MEDS: lisinopril 20 MG TAB PO SCH (08:54)
[2023-01-05] MEDS: ASPIRIN 81 MG ECTAB PO SCH (08:54)
[2023-01-05] MEDS: POT PHOSPHATE MONOBASIC W/ SOD TAB PO SCH ×3 (08:54→20:35)
[2023-01-05] MEDS: CHOLECALCIFEROL 1,000 UNITS 25 MCG TAB PO SCH (08:54)
[2023-01-05] MEDS: ADVANCED PROBIOTIC 1250 MG CAPSULE PO SCH (08:54)
--- NOTE | 2023-01-05 09:28 | Hospitalist Progress Note ---
Date of Service January 05, 2023 Assessment & Plan (1) Weakness: (2) Fall: Plan: Patient is 87 y/o F with HTN, CKD III presented to ER with c/o weakness x 2 days. Had [address] head: No acute intracranial abnormality or calvarial fracture. Pelvis Xray: No fracture or dislocation within the pelvis or hips. Weakness, fall likely secondary to underlying UTI Treat UTI as below Fall precautions PT/OT (3) UTI (urinary tract infection): Plan: Reported urinary frequency x 1 day In ER T: 37.7C. WBC: 15, UA: +nitrite, 3+ leuk esterase, >30 WBC, 4+bacteria Urine culture - E. coli pansensitive Blood cultures pending, obtained after initial antibiotics given in ER 1 blood culture positive for gram-positive cocci in clusters/staph - Coag negat. staph not lugdunensis - likely contaminant, however for now covered with daptomycin. Repeat blood cultures so far negative. Continue to closely monitor. In ER given Rocephin, 1L NSS Continue Rocephin for UTI, dapto for poss. bacteremia Gentle IVF CBC, BMP in am (4) Elevated troponin: Plan: High sensitivity troponin: 188 EKG: sinus rhythm, rate 100. No ST elevation noted. No prior EKG to compare Denies CP, SOB May be elevated secondary to CKD. R/O ACS Troponin peaked at 250 and downtrended Echo obtained - EF 65-70%. Severe concentric LVH. LV wall motion is normal. Grade 1 diastolic dysfunction. Aortic valve leaflets are moderately calcified with only mild restriction of leaflet mobility. No hemodynamically significant valvular aortic stenosis. There is trace tricuspid regurg. Doppler findings do not suggest pulmonary hypertension. If develops CP consider cardiology consult (5) CKD (chronic kidney disease), stage III: Plan: Cr: 1.4. Baseline Cr: 1.2-1.3 Cr down to 0.8 Monitor renal functions, avoid nephrotoxic agents when possible (6) HTN (hypertension): Plan: lisinopril resumed DVT Prophylaxis: Heparin SQ Conditional Code as per discussion with pt and pt's . States try CPR, defibrillation but would not want intubated or mechanical ventilation. Follows with Dr Rodriguez for routine care Admission and Anticipated Discharge Date Admission Date: January 02, 2023 Subjective Pt seen in follow up of UTI, s/p fall Currently laying in bed, in no acute distress. worked w/ PT. Patient is hard of hearing She says she feels much better since admission. Currently has no complaints. No chest pain shortness of breath, no abdominal pain. Pt's present at the bedside. Review of Systems Review of Systems: All systems reviewed & are unremarkable except as noted in Subjective Physical Exam Physical Exam: General: elderly F in no acute distress, obese Head: normocephalic, atraumatic Eyes: PERRL, EOM's intact ENT: normal inspection external ears, nose Neck: supple Lungs: clear, no respiratory distress, no wheezing/rhonchi/rales CV: RRR, no pretibial edema Abd: normal BS, soft, non-tender Ext: moves extremities, no le edema Neuro: Awake alert, able to answer simple questions appropriately, however very hard of hearing. Speech fluent, no facial asymmetry, moves extremities. Skin: warm, dry, right posterior shoulder with ecchymosis Results & Data Results & Data Vital Signs (Past 12 Hours) Vital Signs Temp Pulse Pulse Resp BP Pulse Ox O2 Del Method 01/05/23 07:15 36.7 C 65 18 132/80 96 Room Air 01/05/23 03:09 36.5 C 65 18 137/84 94 Room Air 01/05/23 01:41 62 01/04/23 22:59 36.7 C 66 18 148/87 H 94 Room Air Laboratory Results 01/05/23 01/05/23 Range/Units 06:11 06:11 WBC 7.24 (4.8-10.8) K/ul RBC 4.23 (4.20-5.40) M/uL Hgb 12.6 (12.0-16.0) g/dl Hct 36.7 L (37.0-47.0) % MCV 86.8 (80.0-100.0) fL MCH 29.8 (25.0-34.0) pg MCHC 34.3 (32.0-36.0) g/dL RDW Std Deviation 42.9 (36.4-46.3) fL RDW Coeff of Chris 13.4 (11.5-14.5) % Plt Count 162 (130-400) K/uL MPV 10.2 (9.4-12.4) fL Sodium 137 (136-145) mmol/L Potassium 3.7 (3.5-5.1) mmol/L Chloride 106 (98-107) mmol/L Carbon Dioxide 25 (21-32) mmol/L Anion Gap 6 (3-11) BUN 13 (6-23) mg/dl Creatinine 0.82 (0.6-1.2) mg/dl Est Cr Clr Drug Dosing 51.1 ml/min Est GFR ( Amer) 74.0 ml/min Est GFR (Non-Af Amer) 63.9 ml/min BUN/Creatinine Ratio 15.9 (10-20) Glucose 110 H (70-99(Fasting)) mg/dl Calcium 8.3 L (8.5-10.1) mg/dl Phosphorus 2.0 L (2.5-4.9) mg/dl Magnesium 2.0 (1.7-2.4) mg/dl Medications Administered Current Inpatient Medications Acetaminophen (Acetaminophen 325 Mg Tab) 650 mg PO Q4H PRN PRN Reason: Pain or Fever Stop: 02/01/23 19:29 Aspirin (Aspirin 81 Mg Ectab) 81 mg PO DAILY [facility] Stop: 02/02/23 08:59 Last Admin: 01/05/23 08:54 Dose: 81 mg Heparin Sodium (Porcine) (Heparin Sod 5,000 Unit/0.5 Ml Vial) 5,000 units SQ Q12 KRISTEN Stop: 02/01/23 20:59 Last Admin: 01/05/23 08:53 Dose: 5,000 units Ceftriaxone Sodium 2,000 mg/ (Dextrose) 70 mls @ 100 mls/hr IV Q24H KRISTEN; Protocol Stop: 01/08/23 08:59 Last Admin: 01/05/23 08:53 Dose: 100 mls/hr Daptomycin 425 mg/ Syringe 8.5 mls @ 4.25 mls/min IV Q24H KRISTEN; Protocol Stop: 01/05/23 17:59 Last Admin: 01/04/23 18:39 Dose: 4.25 mls/min Lactobacillus Acidophilus (Advanced Probiotic 1250 Mg Capsule) 2 cap PO DAILY KRISTEN Stop: 02/02/23 11:44 Last Admin: 01/05/23 08:54 Dose: 2 cap Lisinopril (Lisinopril 20 Mg Tab) 20 mg PO QAM KRISTEN Stop: 02/02/23 08:59 Last Admin: 01/05/23 08:54 Dose: 20 mg Ondansetron HCl (Ondansetron Inj 2 Mg/Ml 2 Ml Vial) 4 mg IV Q6H PRN PRN Reason: Nausea Stop: 02/01/23 19:29 Polyethylene Glycol (Polyethylene (Miralax) 17 Gm Pack) 17 gm PO DAILY PRN PRN Reason: Constipation Stop: 02/01/23 19:29 Potassium Phosphate (Pot Phosphate Monobasic W/ Sod Tab) 1 tab PO TID [facility] Stop: 02/03/23 08:59 Last Admin: 01/05/23 08:54 Dose: 1 tab Vitamin D (Cholecalciferol 1,000 Units 25 Mcg Tab) 2,000 units PO DAILY [facility] Stop: 02/02/23 08:59 Last Admin: 01/05/23 08:54 Dose: 2,000 units
[2023-01-06] MEDS: POT PHOSPHATE MONOBASIC W/ SOD TAB PO SCH (09:23)
[2023-01-06] MEDS: ASPIRIN 81 MG ECTAB PO SCH (09:24)
[2023-01-06] MEDS: HEPARIN SOD 5,000 UNIT/0.5 ML VIAL SQ SCH (09:24)
[2023-01-06] MEDS: ADVANCED PROBIOTIC 1250 MG CAPSULE PO SCH (09:24)
[2023-01-06] MEDS: CHOLECALCIFEROL 1,000 UNITS 25 MCG TAB PO SCH (09:24)
[2023-01-06] MEDS: cefTRIAXone SODIUM 2,000 MG in DEXTROSE 5% 50 ML IV SCH (09:25)
[2023-01-06] MEDS: lisinopril 20 MG TAB PO SCH (09:25)
--- NOTE | 2023-01-06 09:35 | Discharge Summary ---
Date of Service January 06, 2023 Admission HPI Per Admitting Provider Patient is 87 y/o F with PMH HTN, CKD III, ascending aorta enlargement presented to ER with c/o weakness x 2 days. History obtained from patient, patient's and chart review. Reports past 2 days with weakness with ambulating. Using walker to ambulate however had bilateral leg weakness and fell yesterday and once during the night. Was able to help patient get up. She states hit her head "but wasn't hard". Denies syncope, LOC. Denies dizziness, CP, SOB prior to fall. Reports increased urination x 1 day. Denies dysuria, hematuria. noticed patient had chills during the evening. noticed patient coughed a few times last night when she was sleeping. Did not take temperature. states she has been more confused than usual. Reports had constipation and took OTC laxative and yesterday had "good" BM. Reports chronic bilateral knee pain, h/o arthroplasty. Denies diaphoresis, N/V/D, WILSON, dizziness, syncope, vision changes, neck pain, CP, SOB, orthopnea, palpitations, sore throat, choking, otalgia, rhinorrhea, abdominal pain, paresthesias, extremity edema, other extremity pain, rashes, ill contacts. Admission Exam Per Admitting Provider General: no acute distress, obese Head: normocephalic, atraumatic Eyes: PERRL, EOM's intact, conjunctiva non-injected, anicteric ENT: normal inspection external ears, nose, mucous membranes midly dry Neck: supple, trachea midline, non-tender, ROM intact Lungs: clear, no respiratory distress, no wheezing/rhonchi/rales CV: RRR, no pretibial edema Abd: normal BS, soft, non-tender Ext: no cyanosis, no calf tenderness, Able to extend and flex bilateral arms, elbows, wrists, shoulders. Able to flex and extend bilateral hips and knees, dorsiflexion & plantar flexion of bilateral feet. No ecchymosis or edema noted over knees, +healed surgical incision anterior knees bilaterally. Distal pulses palpable, sensation to light touch intact. Neuro: Alert, oriented to person, place, confused to time, no focal deficits noted, normal affect Skin: warm, dry, right posterior shoulder with ecchymosis Principal Diagnosis UTI fall Discharge Exam General: elderly F in no acute distress, obese Head: normocephalic, atraumatic Eyes: PERRL, EOM's intact ENT: normal inspection external ears, nose Neck: supple Lungs: clear, no respiratory distress, no wheezing/rhonchi/rales CV: RRR, no pretibial edema Abd: normal BS, soft, non-tender Ext: moves extremities, no le edema Neuro: Awake alert, able to answer simple questions appropriately, however very hard of hearing. Speech fluent, no facial asymmetry, moves extremities. Skin: warm, dry, right posterior shoulder with ecchymosis Discharge Data Allergies Allergy/AdvReac Type Severity Reaction Status Date / Time No Known Allergies Allergy Verified 01/02/23 16:09 Consultations 01/02/23 15:41 ED Decision to Admit Stat Ordered Studies 01/02/23 14:34 CT head/brain wo con Stat FINDINGS: No acute intracranial hemorrhage, midline shift, intracranial mass, hydrocephalus, territorial ischemia or abnormal extra-axial collection. Involutional changes with chronic microvascular ischemic disease. Cerebral vascular calcifications. The study is motion degraded. The calvarium is intact. Small left scalp contusion. Prior bilateral lens repair. The paranasal sinuses, mastoid air cells, and middle ear cavities are clear. IMPRESSION: No acute intracranial abnormality or calvarial fracture. Hospital Course (1) Weakness: (2) Fall: Patient is 87 y/o F with HTN, CKD III presented to ER with c/o weakness x 2 days. Had [address] head: No acute intracranial abnormality or calvarial fracture. Pelvis Xray: No fracture or dislocation within the pelvis or hips. Weakness, fall likely secondary to underlying UTI Treat UTI as below Fall precautions PT/OT (3) UTI (urinary tract infection): Reported urinary frequency x 1 day In ER T: 37.7C. WBC: 15, UA: +nitrite, 3+ leuk esterase, >30 WBC, 4+bacteria Urine culture - E. coli pansensitive Blood cultures pending, obtained after initial antibiotics given in ER 1 blood culture positive for gram-positive cocci in clusters/staph - Coag negat. staph not lugdunensis - most likely contaminant, covered with daptomycin empirically. Repeat blood cultures so far negative. In ER given Rocephin, 1L NSS Continued Rocephin for UTI, while inpt, will switch to Po abx on discharge received gentle IVF (4) Elevated troponin: High sensitivity troponin: 188 EKG: sinus rhythm, rate 100. No ST elevation noted. No prior EKG to compare Denies CP, SOB May be elevated secondary to CKD. R/O ACS Troponin peaked at 250 and downtrended Echo obtained - EF 65-70%. Severe concentric LVH. LV wall motion is normal. Grade 1 diastolic dysfunction. Aortic valve leaflets are moderately calcified with only mild restriction of leaflet mobility. No hemodynamically significant valvular aortic stenosis. There is trace tricuspid regurg. Doppler findings do not suggest pulmonary hypertension. (5) CKD (chronic kidney disease), stage III: Cr: 1.4. Baseline Cr: 1.2-1.3 Cr down to 0.8 Monitor renal functions, avoid nephrotoxic agents when possible (6) HTN (hypertension): lisinopril resumed Total Time Total Time Spent Total Time Spent (In Minutes): 40 Discharge Plan Discharge Items Patient Disposition: Home - Self-Care Reason For Visit: WEAKNESS Discharge Diagnosis: UTI fall Activity: Per Instructions section Non-emergency contact: Primary Care Provider Call non-emergency contact if: you have any medication questions and your symptoms worsen Follow-up/Referrals: Veronica Rodriguez MD [Primary Care Provider] - (Date & Time 01/12/2023 11:20 AM Provider Veronica Rodriguez MD Department [facility] ) Diet: Heart Healthy Addtl Attending Provider Instructions: Follow-up with your primary care doctor, the appointment was scheduled for you for January 12. Finish antibiotic treatment as prescribed. Recommend using probiotics, while on antibiotics, to prevent any stomach upset. Pending Studies at Discharge: Yes Studies:: Final blood culture results Stand-Alone Forms: My [facility] [employer], Smoking Cessation Medications and DC Order Prescriptions: New cefuroxime axetil 250 mg tablet 250 mg PO BID 4 Days Qty: 8 0RF Advanced Probiotic 625 mg (10 billion cell) Capsule 2 cap PO DAILY 5 Days Qty: 10 0RF Continued cholecalciferol (vitamin D3) 50 mcg (2,000 unit) capsule 50 mcg PO DAILY lisinopril 20 mg tablet 20 mg PO QAM aspirin 81 mg Tablet,Delayed Release (Dr/Ec) 81 mg PO DAILY acetaminophen [Tylenol Extra Strength] 500 mg Tablet 500 - 1,000 mg PO DIRECTED PRN (Reason: PAIN/FEVER) Discharge Orders: Discharge Order (Routine); Ordered 01/06/23 Ordered By: Dharmesh Aj Admission Data Admit Date/Time: 01/02/23 16:33 Attending Provider: Dharmesh Aj Admit Provider: Pavel Patterson Primary Care Provider: Veronica Rodriguez Other Providers: Pavel Patterson
== END 2023-01-06 12:16 | disposition home or self-care (01) | DRG 690 ==
LOC: ED 14:06 → EDINP 16:33 → SUATTDRO 16:33 → 2N 20:17

== ENCOUNTER 2024-06-20 20:42 | Inpatient (IN) ==
--- OUTSIDE RECORDS SUMMARY | 2024-06-20 20:46 | External Medical Summary | Summary of Care ---
Author Name Unknown Organization [facility] Address [address] [facility] [place] [address] Phone [phone] Care Team Providers Care Punchboard Assembler Name Role Phone Veronica Rodriguez MD Primary Care Provider Reason for Visit * Reason Comments Return Visit Wants to discuss lab s from 11/23 Encounter Details Date Type Department Care Team (Late st Contact Info) Description 05/02/2024 6:20 PM EDT Office Visit Family Practice [facility] [address] [place] [address] Veronica Rodriguez MD [address] [place] [id number] HTN, goal below 140/90*; Stage 3a chronic kidney disease (HCC) Allergies No known active allergiesdocumented as of this encounter (statuses as of 05/02/2024) Medications Medication Sig Dispensed Refills Start Date End Date Status CALTRATE 600 + D 600-125 MG-IU PO TABS 1 tab twice a day 03/19/1997 Active ASPIRIN 81 MG PO TABS daily Act jayshree Lisinopril 20 MG Oral Tablet (Prinivil)Indications: HTN, goal below 140/90 Take 1 Tablet by mouth in the morning. 90 Tablet 3 05/02/2024 Active Lisinopril 20 MG Oral Tablet (Prinivil)Indications: PSVT (paroxysmal supraventricular tachycardia) (HCC),Frequent PVCs,HTN, goal below 140/90 Take 1 Tablet by mouth in the morning. 30 Tablet 11 11/04/2023 Discontinue d(Refill) documented as of this encounter (statuses as of 05/02/2024) Active Problems Problem Noted Date Diagnosed Date PSVT (paroxysmal supraventricular tachycardia) 0 01/29/2023 Ascending aorta enlargement 04/02/2022 Carpal tunnel syndrome of right wrist 10/04/2021 Stage 3a chronic kidney disease 10/04/2021 HTN, goal below 140/90 08/30/2021 Knee joint replacement status 07/21/2007 Osteoarthritis of knee 07/07/2007 documented as of this encounter (statuses as of 05/02/2024) Immunizations Name Administration Dates Next Due Pneumococcal Conjugate Vaccine, 20-valent (Prevn ar20) 04/30/2023 documented as of this encounter Social History Tobacco Use Types Packs/Day Years Used Date Smoking Tobacco: Never Smokeless Tobacco: Never Alcohol Use Standard Drinks/Week Comments No 0 (1 standard drink = 0.6 oz pur e alcohol) PHQ-2 Answer Date Recorded PHQ Adult Total Score 0 10/04/2021 Utilities Answer Date Recorded Do you have trouble paying y our heating, water, or electric bill? (Adult - for ages 18 years and over) Not on file 04/05/2024 Is your family able to pay t he heat, water, or electric bill? (Household - for ages 0-17 years) Not on file 04/05/2024 Does your family have access to good internet? (Household - for ages 0-17 years) Not on file 04/05/2024 Social Connections Answer Date Recorded How often do you feel lonely or isolated from those around you? (Adult - for ages 18 years and over) Not on file 04/05/2024 Sex and Gender Information Value Date Recorded Sex Assigned at Not on file Gender Identity Not on file Sexual Orientation Not on file Job Start Date Occupation Industry Not on file Not on file Not on file documented as of this encounter Last Filed Vital Signs Vital Sign Reading Time Taken Comments Blood Pressure 138/84 05/02/2024 6:23 PM EDT Pulse 68 05/02/2024 6:23 PM EDT Temperature 36.8 C (98.3 F) 05/02/2024 6:23 PM ED T Respiratory Rate - - Oxygen Saturation - - Inhaled Oxygen Concentration - - Weight 92.1 kg (203 lb) 05/02/2024 6:23 PM EDT Height 162.6 cm (5' 4") 05/02/2024 6:23 PM EDT Body Mass Index 34.84 05/02/2024 6:23 PM EDT documented in this encounter Progress Notes * Veronica Rodriguez MD - 05/02/2024 6:40 PM EDT Images from the original note were not included. History of Present Illness Adri Kc is a 88 year old female that presents for Return Visit (Wants to discuss labs from11/23) Saw cardiology in October. Repeat echo in 1 year for ascending aorta enlargement. No changes to medications. Slight bump in creatinine, improved with hydration and recheck. Appetite good. No problems with eating/chewing. Hearing good with hearing aids. No vision concerns. Sleeping well, mood is good. Ambulates with a walker. One fall in past 6 months - leg gave out getting off sliding rocker on deck. Has grab bar in shower, sturdy hand rails. No chest pain. No dsypnea. No swelling in legs. No abd pain, constipation/diarrhea. No urinary symptoms. Carpal tunnel much improved after surgery. Taking lisinopril regularly, never forgets a dose. No nicotine, no cannabis, no alcohol. Current medications and allergies reviewed. Past medical history and problem list reviewed. Physical Exam Vitals: 05/02/24 1823 Temp: 36.8 C (98.3 F) Pulse: 68 BP: 138/84 BMI: 34.83 BP Readings from Last 3 Encounters: 05/02/24 138/84 11/04/23 128/76 08/26/23 166/76 Wt Readings from Last 3 Encounters: 05/02/24 92.1 kg (203 lb) 11/04/23 90.3 kg (199 lb) 04/30/23 89.9 kg (198 lb 3.2 oz) Physical Exam Vitals and nursing note reviewed. Constitutional: General: She is not in acute distress. Appearance: Normal appearance. She is not ill-appearing. HENT: Head: Normocephalic and atraumatic. Right Ear: Tympanic membrane, ear canal and external ear normal. There is no impacted cerumen. Left Ear: Tympanic membrane, ear canal and external ear normal. There is no impacted cerumen. Nose: Nose normal. Mouth/Throat: Mouth: Mucous membranes are moist. Pharynx: Oropharynx is clear. Eyes: General: No scleral icterus. Conjunctiva/sclera: Conjunctivae normal. Pupils: Pupils are equal, round, and reactive to light. Neck: Thyroid: No thyroid mass, thyromegaly or thyroid tenderness. Cardiovascular: Rate and Rhythm: Normal rate and regular rhythm. Heart sounds: No murmur heard. Pulmonary: Effort: Pulmonary effort is normal. Breath sounds: Normal breath sounds. Abdominal: General: Abdomen is flat. There is no distension. Palpations: Abdomen is soft. Tenderness: There is no abdominal tenderness. There is no guarding or rebound. Musculoskeletal: Right lower leg: No edema. Left lower leg: No edema. Lymphadenopathy: Cervical: No cervical adenopathy. Skin: General: Skin is warm and dry. Neurological: Mental Status: She is alert. Psychiatric: Mood and Affect: Mood normal. Behavior: Behavior normal. I have reviewed the following results: CMP, Lipid Panel, TSH, CBC, and B12 Assessment and Plan HTN, goal below 140/90 At goal, cont current regimen. - Lisinopril 20 MG Oral Tablet (Prinivil); Take 1 Tablet by mouth in the morning. Stage 3a chronic kidney disease (HCC) Stable on repeat GFR. Wrap-Up Follow Up: Return in about 1 year (around 05/02/2025) for Return with Michael. | For: Return with Michael | Check-out note: Supposed to see Cardiology Oct 2024, I don't see on the books. If you can schedule that would be great. Time: I spent a total of 20-29 minutes (exact time 23 mins) on the date of service in preparation, delivery, and documentation of the care provided to Adri Kc excluding any time spent in the performance of separately billed services. documented in this encounter Nursing Notes * Chrissy Caceres LPN - 05/02/2024 6:23 PM EDT The patient has been properly identified by confirmation of name and date of . Chief Complaint Patient presents with Return Visit Wants to discuss labs from 11/23 documented in this encounter Plan of Treatment Upcoming Encounters Date Type Department Care Team (Late st Contact Info) Description 11/02/2024 2:00 PM EST Office Visit Cardiology, [facility] [address] [place] [address] Lillie Heard PA-C [address] [place] [phone] 05/05/2025 12:20 PM EDT Office Visit Family Practice [facility] [address] [place] [address] Veronica Rodriguez MD [address] [place] [address] Health Maintenance Due Date Last Done Comments DXA Scan 1935 CKD PHOS USE SMARTSET 01316 1953 DTaP,Tdap,and Td Vaccines (1 - Tdap) 1954 Zoster Vaccines (1 of 2) 1984 Depression Screening 10/04/2022 10/04/2021 Influenza Vaccine (FLU shot) (#1) 2024 CKD HGB USE SMARTSET 56124 11/04/202411/04, 03/09/2021, 03/09/2021, Additional history exists Albumin/Creatinine Ratio 11/23/2024 11/23/2023 Pneumococcal Vaccine: 65+ Years Completed 04/30/2023 COVID-19 Vaccine Discontinued HPV (Gardasil) Vaccine Aged Out No lo nger eligible based on patient's age to complete this topic Hepatitis B Vaccine Aged Out No longe r eligible based on patient's age to complete this topic MENINGOCOCCAL (MENACTRA/MENVEO) Aged Out No longer eligible based on patient's age to complete this topic documented as of this encounter Medical Devices Implanted Type Area Hide Selector Device Identifier Shelf Expiration Date Model / Serial / Lot Femur Porous Lps - [id number] [place] [facility] [place] [employer] [id number] -02 / / Block [place] Yels3 10 - [id number] Implanted:Q[place]: 1 [place] [facility] [place] Knee [employer] [id number] -10 / / Femur Porous Lps - [id number] Implanted:Qty: 1 on [place]24/2008 [place] [facility] [place]: Knee [employer] [id number] -01 / / [id number] Block [place] Syls3 10 - [id number] Implanted:Q[place]: 1 [place]2008 [place] [facility] [place] Knee [employer] [id number] -[id number] / / [id number] documented as of this encounter Visit Diagnoses Diagnosis HTN, goal below 140/90- Primary Unspecified essential hypertension Stage 3a chronic kidney disease (HCC) documented in this encounter Advance Directives * Full Code (Latest Code Status on File) Date Activated Date Inactivated Comments 07/24/2008 11:40 AM 07/26/2008 4:16 PM * Full Code Date Activated Date Inactivated Comments 07/24/2008 6:07 AM 07/24/2008 11:40 AM Care Teams Punchboard Assembler Relationship Specialty Start Date End Date Veronica Rodriguez MD [address] [phone] PCP - General Internal Medicine 08/30/21 documented as of this encounter
--- OUTSIDE RECORDS SUMMARY | 2024-06-20 20:47 | External Medical Summary | Summary of Care ---
Author Name Unknown Organization [facility] Address [address] [place] [address] Phone [phone] Care Team Providers Care Dental Nurse Name Role Phone Veronica Rodriguez MD Primary Care Provider Encounter Details Date Type Department Care Team (Late st Contact Info) Description 01/12/2024 Orders Only Family Practice [facility] [address] [place] [address] Veronica Rodriguez MD [address] [place] [phone] Allergies No known active allergiesdocumented as of this encounter (statuses as of 01/12/2024) Medications Medication Sig Dispensed Refills Start Date End Date Status CALTRATE 600 + D 600-125 MG-IU PO TABS 1 tab twice a day 0 03/19/1997 Active ASPIRIN 81 MG PO TABS daily 0 Act jayshree Lisinopril 20 MG Oral Tablet (Prinivil)Indications:PS VT (paroxysmal supraventricular tachycardia) (HCC),Frequent PVCs,HTN, goal below 140/90 Take 1 Tablet by mouth in the morning. 30 Tablet 11 11/04/2023 Active documented as of this encounter (statuses as of 01/12/2024) Active Problems Problem Noted Date Diagnosed Date PSVT (paroxysmal supraventricular tachycardia) 0 01/29/2023 Ascending aorta enlargement 04/02/2022 Carpal tunnel syndrome of right wrist 10/04/2021 Stage 3a chronic kidney disease 10/04/2021 HTN, goal below 140/90 08/30/2021 Knee joint replacement status 07/21/2007 Osteoarthritis of knee 07/07/2007 documented as of this encounter (statuses as of 01/12/2024) Immunizations Name Administration Dates Next Due Pneumococcal Conjugate Vaccine, 20-valent (Prevn ar20) 04/30/2023 documented as of this encounter Social History Tobacco Use Types Packs/Day Years Used Date Smoking Tobacco: Never Smokeless Tobacco: Never Alcohol Use Standard Drinks/Week Comments No 0 (1 standard drink = 0.6 oz pur e alcohol) PHQ-2 Answer Date Recorded PHQ Adult Total Score 0 10/04/2021 Sex and Gender Information Value Date Recorded Sex Assigned at Not on file Gender Identity Not on file Sexual Orientation Not on file Job Start Date Occupation Industry Not on file Not on file Not on file documented as of this encounter Plan of Treatment Upcoming Encounters Date Type Department Care Team (Late st Contact Info) Description 02/05/2024 9:20 AM EDT Office Visit Family Practice [facility] [address] [place] [phone] Veronica Rodriguez MD [address] [place] [address] Health Maintenance Due Date Last Done Comments DXA Scan 1935 CKD PHOS USE SMARTSET 44565 1952 DTaP,Tdap,and Td Vaccines (1 - Tdap) 1954 Zoster Vaccines (1 of 2) 1984 Depression Screening 10/04/2022 10/04/2021 Influenza Vaccine (FLU shot) (#1) 2023 CKD HGB USE SMARTSET 41285 11/04/202411/04, 03/09/2021, 03/09/2021, Additional history exists Albumin/Creatinine Ratio 11/23/2024 11/23/2023 Pneumococcal Vaccine: 65+ Years Completed 04/30/2023 COVID-19 Vaccine Discontinued GARDASIL-HPV IMMUNIZATION SERIES Aged Out No longer eligible based on patient's age to complete this topic Hepatitis B Aged Out No longer eligi ble based on patient's age to complete this topic MENINGOCOCCAL (MENACTRA/MENVEO) Aged Out No longer eligible based on patient's age to complete this topic documented as of this encounter Medical Devices Implanted Type Area Able Seaman Device Identifier Shelf Expiration Date Model / Serial / Lot Femur Porous Lps - [id number] [place]ed:[place] [facility] [place] Knee [employer] [id number] -02 / / Block [place] Yels3 10 - [id number] Implanted:Q[place] 1 [place]19[place] [facility] [place]: Knee [employer] [id number] -10 / / Femur Porous Lps - [id number] Implanted:Qty[place] 1 [place] [facility] [place]: Knee [employer] [id number] -01 / / [id number] Block [place] Syls3 10 - [id number] [place]planted:[place] 1 [place] [facility] [place] Knee [employer] [id number] -10 / / [id number] documented as of this encounter Procedures Procedure Name Priority Date/Time Associated Diagnosis Comments MAMMOGRAM SCREENING BILATERAL Routine 12/29/2023 documented in this encounter Results * MAMMOGRAM SCREENING BILATERAL (12/29/2023) Anatomical Region Laterality Modality Breast Bilateral Other 12/29/2023 Veronica Rodrigeuz MD RAD MAMMOGRAPH Y documented in this encounter Advance Directives Latest Code Status on File Code Status Date Activated Date Inactivated Comments Full Code 07/24/2008 11:40 AM 07/26/2008 4:16 PM Code Status History Code Status Date Activated Date Inactivated Comments Full Code 07/24/2008 6:07 AM 07/24/2008 11:40 AM Care Teams Dental Nurse Relationship Specialty Start Date End Date Veronica Rodriguez MD [address] [facility] [place] [address] PCP - General Internal Medicine 08/30/21 documented as of this encounter
--- NOTE | 2024-06-20 20:57 | Emergency Department Note ---
Impression & Plan Fall from standing, Spiral fracture of shaft of tibia, Acute kidney injury superimposed on chronic kidney disease, Fracture of proximal end of right fibula ED Provider Note HISTORY OF PRESENT ILLNESS: Patient is an 88-year-old female presenting with right ankle pain. Patient reports she was walking up the stairs into her house when she felt like her right knee "locked up" and she fell forward, twisting her right ankle. She denies falling onto the ankle and denies any falls. Denies striking her head or loss of consciousness. She reports diffusely across to her ankle. Denies any numbness or tingling in her foot. Denies chest pain or shortness of breath. ROS: as above PHYSICAL EXAM: Constitutional: Patient appears in no acute distress. Obese HENT: Head: Normocephalic and atraumatic. Eyes: EOMI, PERRL Mouth/Throat: Mucous membranes moist. Neck: Trachea midline. Neck supple. Musculoskeletal: - RLE: No obvious deformity. Patient is able to dorsiflex and plantarflex the ankle. Able to passively flex at the knee. No obvious abrasions, lacerations or open wounds. Intact DP and PT pulses. Patient is able to wiggle toes. No appreciable swelling or deformity to the ankle. TTP over proximal tibia. Skin: Warm and dry. No rash, erythema, pallor or cyanosis Psychiatric: Appropriate mood and affect for situation. Neurological: Alert and keenly responsive. CN II-XII grossly intact, moving all extremities equally and fully. MDM: - Vitals signs showed hypertension - History obtained via patient. History as above. - Chronic conditions affecting care: HTN; CKD - Differential diagnoses include, but are not limited to: Tibial fracture; fibula fracture; ankle dislocation; contusion - Order placed for continuous cardiac monitoring. At this time, monitor showed rate of 77 bpm with normal sinus rhythm, per my interpretation. - External medical records reviewed. Discharge summary dated 01/07/2024 was reviewed. Patient was admitted at that time for a UTI and after a fall. - Xray right ankle and right tib-fib showed spiral distal tibial fracture with proximal fibula fracture - IV access ordered for placement and laboratory workup ordered for preoperative testing. - EKG interpreted by myself showed normal sinus rhythm. Rate 70 bpm. QT 396. No acute ischemic changes. - Laboratory workup interpreted by myself showed slight leukocytosis (WBC 11.62); stable electrolytes; elevated creatinine (cr 1.66 - baseline Cr 1.2-1.3) - CXR negative for pneumonia, per my interpretation - Discussed case with orthopedic surgeon on-call, Dr. Trujillo, at 21:25. He request admission to medicine for plan for surgery potentially tomorrow. - Patient given 50 mcg IV fentanyl. - A short leg posterior and ankle stirrup splint were applied by sonography technologist to the right lower leg. - Discussion was had with pillowcase folder about patient's case and need for admission - Hospitalist, Dr. Garcia, consulted for admission - Patient admitted to [facility] for further evaluation and management. ASSESSMENT AND PLAN: Diagnosis: Fall from standing; spiral fracture of shaft of right tibia; MIRTHA on CKD; fracture of proximal end of right fibula Plan: Admit Past Med/Surg History Problem List (Updated 06/20/24 @ 22:12 by Hilaria Robbins MD) Fracture of proximal end of right fibula (Acute) Acute kidney injury superimposed on chronic kidney disease (Acute) Spiral fracture of shaft of tibia (Acute) Fall from standing (Acute) Elevated troponin (Acute) Leukocytosis (Acute) Acute UTI (Acute) MIRTHA (acute kidney injury) (Acute) HTN (hypertension) Elevated troponin UTI (urinary tract infection) Fall Weakness CKD (chronic kidney disease), stage III Low back pain (Chronic) Numbness and tingling in right hand (Chronic) Dyspnea on exertion (Chronic) Weakness of right foot (Acute) TIA (transient ischemic attack) (Acute) Dyslipidemia Impaired fasting glucose HbA1c of 6.1 % July 2014 Encounter for health maintenance examination in adult Medicare annual wellness visit, subsequent Preop exam for internal medicine Cataract Encounter for pre-operative examination Medical History (Updated 06/20/24 @ 22:12 by Hilaria Robbins MD) Hard of hearing Surgical History History of cataract surgery LEFT History of colonoscopy S/P appendectomy HX S/P total knee arthroplasty HX bilateral, [place] Fuentes [place] [facility] [place] Family History Father Pancreatic cancer Mother Alzheimer disease Sister Non Hodgkin's lymphoma Denies family history of Ovarian cancer Prostate cancer Myocardial infarction Breast cancer Colorectal cancer Social History Smoking Status: Never smoker Second Hand Exposure: No; Do You Dip or Chew Tobacco: No; Hx Alcohol Use: No Hx Substance Use: No Preferred Language: Czech Communication Ability: Effective Visual Impairment: Limited Hearing Ability: Use of Hearing Aid Customer Business Manager Required: No Beliefs That Will Affect Care: None marital status: Current Living Situation: Spouse Current Living Situation Comment: Lives in a home with current occupational status: retired Feels Safe at Home: Yes Childhood Exposure to Second-Hand Smoke: No Diet: regular Diet Comment: Regular caffeine: Yes (little amount) during the past year weight has: remained stable Dental Care, Regularly: Yes Physical Activity Frequency: Does not Exercise Seatbelt Use: always Sunscreen Use: No Assistive Devices: Glasses and Walker Allergies Allergies Allergy/AdvReac Type Severity Reaction Status Date / Time No Known Allergies Allergy Verified 01/02/23 16:09 Home Meds Home Medications Medication Instructions Recorded Confirmed cholecalciferol (vitamin D3) 50 50 mcg PO DAILY 11/14/20 06/20/24 mcg (2,000 unit) capsule acetaminophen 500 mg tablet 500 - 1,000 mg PO DIRECTED PRN 01/02/23 06/20/24 (Tylenol Extra Strength) PAIN/FEVER aspirin 81 mg tablet,delayed 81 mg PO DAILY 01/02/23 06/20/24 release lisinopril 20 mg tablet 20 mg PO QAM 01/02/23 06/20/24 Results & Data (ED) Vital Signs Vital Signs - 24 hr 06/20/24 20:49 06/20/24 21:04 Temperature 37.3 C Temperature Source Oral Pulse Rate 80 77 Respiratory Rate 24 Respiratory Depth Normal Blood Pressure 146/81 H Blood Pressure Mean 102 Blood Pressure Position Semi-fowlers Pulse Oximetry 94 Oxygen Delivery Method Room Air Sepsis Recent Fever Within 48 Hours No Sepsis New/Unexplained Change in Mental Status No Sepsis Action Taken by Nursing No Action Required Laboratory Data 06/20/24 21:34 06/20/24 21:34 Lab Results 06/20/24 Range/Units 21:34 WBC 11.62 H (4.8-10.8) K/ul RBC 4.71 (4.20-5.40) M/uL Hgb 14.0 (12.0-16.0) g/dl Hct 42.7 (37.0-47.0) % MCV 90.7 (80.0-100.0) fL MCH 29.7 (25.0-34.0) pg MCHC 32.8 (32.0-36.0) g/dL RDW Std Deviation 43.2 (36.4-46.3) fL RDW Coeff of Chris 13.0 (11.5-14.5) % Plt Count 150 (130-400) K/uL MPV 9.7 (9.4-12.4) fL Sodium 136 (136-145) mmol/L Potassium 3.6 (3.5-5.1) mmol/L Chloride 100 (98-107) mmol/L Carbon Dioxide 26 (21-32) mmol/L Anion Gap 10 (3-11) BUN 39 H (6-23) mg/dl Creatinine 1.66 H (0.6-1.2) mg/dl Est Cr Clr Drug Dosing 26.0 ml/min Est GFR ( Amer) 31.3 ml/min Est GFR (Non-Af Amer) 27.0 ml/min BUN/Creatinine Ratio 23.5 H (10-20) Glucose 170 H (70-99(Fasting)) mg/dl Calcium 10.5 H (8.6-10.3) mg/dl Troponin I High Sens 22.5 H (0-14) pg/ml Administered Medications Discontinued Medications Fentanyl Citrate (Fentanyl Citrate Pf 100 Mcg/2 Ml Vial) 50 mcg IV NOW STA Stop: 06/20/24 21:27 Last Admin: 06/20/24 21:37 Dose: 50 mcg Documented By: LYN Discharge Plan Visit Data Chief Complaint: Ankle Pain Stated Complaint: FALL, R ANKLE SWELLING ED Provider: Hilaria Robbins Discharge Problem: Fall from standing, Spiral fracture of shaft of tibia, Acute kidney injury superimposed on chronic kidney disease, Fracture of proximal end of right fibula Forms Stand Alone Forms: My [facility] Prescriptions Prescriptions: No Action cholecalciferol (vitamin D3) 50 mcg (2,000 unit) capsule 50 mcg PO DAILY lisinopril 20 mg tablet 20 mg PO QAM aspirin 81 mg Tablet,Delayed Release (Dr/Ec) 81 mg PO DAILY acetaminophen [Tylenol Extra Strength] 500 mg Tablet 500 - 1,000 mg PO DIRECTED PRN (Reason: PAIN/FEVER) Referrals Referrals: Veronica Rodriguez MD [Primary Care Provider] -
[2024-06-20] MEDS: fentaNYL citrate PF 100 MCG/2 ML VIAL IV STA (21:37)
[2024-06-20 21:56] LABS: Hematocrit (blood only) 42.7 % (37.0-47.0); Mean Corpuscular Hemoglobin 29.7 pg (25.0-34.0); Mean Corpuscular Hgb Conc 32.8 g/dL (32.0-36.0); Mean Corpuscular Volume 90.7 fL (80.0-100.0); Mean Platelet Volume 9.7 fL (9.4-12.4); Platelet Count 150 K/uL (130-400); RDW Standard Deviation 43.2 fL (36.4-46.3); Red Blood Count 4.71 M/uL (4.20-5.40); White Blood Count 11.62 K/ul (4.8-10.8)
[2024-06-20 22:06] LABS: BUN Creatinine Ratio 23.5 (10-20); Calcium 10.5 mg/dl (8.6-10.3); Est GFR (African American) 31.3 ml/min; Potassium 3.6 mmol/L (3.5-5.1)
[2024-06-20 22:13] LABS: Troponin I High Sensitivity 22.5 pg/ml (0-14)
[2024-06-20 22:30] LABS: Basophils # (auto) 0.05 K/uL (0.00-0.20); Basophils % (auto) 0.4 %; Eosinophils # (auto) 0.02 K/uL (0.00-0.50); Eosinophils % (auto) 0.2 %; Immature Granulocytes # (auto) 0.05 K/uL (0.01-0.20); Immature Granulocytes % (auto) 0.4 %; Lymphocytes # (auto) 0.37 K/uL (1.20-3.40); Lymphocytes % (auto) 3.2 %; Monocytes # (auto) 0.54 K/uL (0.11-0.59); Monocytes % (auto) 4.6 %; Neutrophils # (auto) 10.59 K/uL (1.40-6.50); Neutrophils % (auto) 91.2 %
[2024-06-20 23:36] LABS: Prothrombin Time 10.9 Seconds (9.0-12.0)
--- NOTE | 2024-06-21 01:18 | History & Physical Report ---
Date of Service June 21, 2024 Assessment & Plan (1) Spiral fracture of shaft of tibia: Plan: 88-year-old female with past medical history significant for ascending aortic enlargement, hypertension, paroxysmal supraventricular tachycardia, CKD stage III, osteoarthritis of knee, carpal tunnel syndrome of right wrist is status post fall and found to have distal tibial fracture and proximal fibular fracture. Patient states she was climbing steps and was almost on top when her knees gave away and she fell but did not hit her head and no loss of consciousness. tried to get her up but she could not move her ankle and son was called and the patient was brought to the ER. Currently status post splint. Seems comfortable. Hard of hearing. Denies any headache. No sore throat or cough. No fevers. Appetite is okay. Denies any chest pain or sh ortness of breath. No abdominal pain. No nausea. Normal bowel and bladder movements. She ambulates with walker at home and can get around the house okay. Status post fall Distal tibial and proximal femur fracture Status post splint in the ER Pain control N.p.o. IV fluids Patient ambulates with walker EKG, labs and chest x-ray okay Patient should be at acceptable risk to proceed with surgery Ortho consult Hypertension Will hold lisinopril for now IV hydralazine as needed Will monitor MIRTHA on CKD stage III Baseline creatinine around 1.2-1.4 Creatinine 1.6 today Holding lisinopril Getting fluids Follow repeat labs in a.m. Mild ascending aorta enlargement at 4.3 cm On echo done in September 2023 Normal EF and grade 1 diastolic dysfunction Lower extremity edema Chronic as per family Monitor for volume overload DVT prophylaxis SCDs on left leg Further DVT prophylaxis per Ortho Disposition Medical floor. Full code History of Present Illness Chief Complaint: Status post fall and right tibia and fibula fracture Primary Care Provider: Veronica Rodriguez MD 88-year-old female with past medical history significant for ascending aortic enlargement, hypertension, paroxysmal supraventricular tachycardia, CKD stage III, osteoarthritis of knee, carpal tunnel syndrome of right wrist is status post fall and found to have distal tibial fracture and proximal fibular fracture. Patient states she was climbing steps and was almost on top when her knees gave away and she fell but did not hit her head and no loss of consciousness. tried to get her up but she could not move her ankle and son was called and the patient was brought to the ER. Currently status post splint. Seems comfortable. Hard of hearing. Denies any headache. No sore throat or cough. No fevers. Appetite is okay. Denies any chest pain or sh ortness of breath. No abdominal pain. No nausea. Normal bowel and bladder movements. She ambulates with walker at home and can get around the house okay. Past medical history. As mentioned above Past surgical history. Total knee arthroplasty. Right carpal tunnel surgery. Knee arthroscopy. AR appendectomy in 1946. Social history. . No smoking. No alcohol use. No drug use. Family history. Sister had breast cancer. Sister had diabetes. Daughter had breast cancer. Father had cancer. Allergies Allergy/AdvReac Type Severity Reaction Status Date / Time No Known Allergies Allergy Verified 01/02/23 16:09 Home Medications Medication Instructions Recorded Confirmed Type cholecalciferol (vitamin D3) 50 50 mcg PO DAILY 11/14/20 06/20/24 History mcg (2,000 unit) capsule acetaminophen 500 mg tablet 500 - 1,000 mg PO DIRECTED PRN 01/02/23 06/20/24 History (Tylenol Extra Strength) PAIN/FEVER aspirin 81 mg tablet,delayed 81 mg PO DAILY 01/02/23 06/20/24 History release lisinopril 20 mg tablet 20 mg PO QAM 01/02/23 06/20/24 History Past Med/Surg History Problem List Fracture of proximal end of right fibula (Acute) Acute kidney injury superimposed on chronic kidney disease (Acute) Spiral fracture of shaft of tibia (Acute) Fall from standing (Acute) Elevated troponin (Acute) Leukocytosis (Acute) Acute UTI (Acute) MIRTHA (acute kidney injury) (Acute) HTN (hypertension) Elevated troponin UTI (urinary tract infection) Fall Weakness CKD (chronic kidney disease), stage III Low back pain (Chronic) Numbness and tingling in right hand (Chronic) Dyspnea on exertion (Chronic) Weakness of right foot (Acute) TIA (transient ischemic attack) (Acute) Dyslipidemia Impaired fasting glucose HbA1c of 6.1 % July 2014 Encounter for health maintenance examination in adult Medicare annual wellness visit, subsequent Preop exam for internal medicine Cataract Encounter for pre-operative examination Medical History Hard of hearing Surgical History History of cataract surgery LEFT History of colonoscopy S/P appendectomy HX S/P total knee arthroplasty HX bilateral, Dr Fuentes at [facility] [place] Family History Father Pancreatic cancer Mother Alzheimer disease Sister Non Hodgkin's lymphoma Denies family history of Ovarian cancer Prostate cancer Myocardial infarction Breast cancer Colorectal cancer Social History Smoking Status: Never smoker Second Hand Exposure: No; Do You Dip or Chew Tobacco: No; Tobacco Cessation Education Requested by Patient: No Hx Alcohol Use: No Hx Substance Use: No Preferred Language: Persian Communication Ability: Effective Visual Impairment: Limited Hearing Ability: Use of Hearing Aid Gear Repair Supervisor Required: No Beliefs That Will Affect Care: None marital status: Current Living Situation: Spouse Current Living Situation Comment: Lives in a home with current occupational status: retired Other Information That Helps Us Care for You: No Feels Safe at Home: Yes Safety Concerns: Feels Safe At This Time Childhood Exposure to Second-Hand Smoke: No Diet: regular Diet Comment: Regular caffeine: Yes (little amount) during the past year weight has: remained stable Dental Care, Regularly: Yes Physical Activity Frequency: Does not Exercise Seatbelt Use: always Sunscreen Use: No Assistive Devices: Walker Review of Systems Review of Systems: All systems reviewed & are unremarkable except as noted in HPI & below Physical Exam Physical Exam: General- Not in distress Head- atraumatic Eyes- PERRL. ENT- oropharynx clear Neck- supple, no JVD. Lungs- clear to auscultation no wheezing or crackles Heart- regular rhythm; no murmur, no gallop. Abdomen- normal bowel sounds, soft, nontender, no distension Extremities- Right lower extremity in splint, edema seen in left lower extremity Neuro- alert, oriented PERRL,no facial palsy; no dysarthria; obeys simple commands Results & Data Results & Data Vital Signs (Past 12 Hours) Vital Signs Temp Pulse Pulse Resp BP BP Pulse Ox 06/20/24 22:00 84 20 135/79 97 06/20/24 21:04 77 06/20/24 20:49 37.3 C 80 24 146/81 H 94 O2 Del Method 06/20/24 22:00 Room Air 06/20/24 21:04 06/20/24 20:49 Room Air Diagnostic Findings Laboratory Results WBC 11.62 K/ul (4.8-10.8) H 06/20/24 21:34 RBC 4.71 M/uL (4.20-5.40) 06/20/24 21:34 Hgb 14.0 g/dl (12.0-16.0) 06/20/24 21:34 Hct 42.7 % (37.0-47.0) 06/20/24 21:34 MCV 90.7 fL (80.0-100.0) 06/20/24 21:34 MCH 29.7 pg (25.0-34.0) 06/20/24 21:34 MCHC 32.8 g/dL (32.0-36.0) 06/20/24 21:34 RDW Std Deviation 43.2 fL (36.4-46.3) 06/20/24 21:34 RDW Coeff of Chris 13.0 % (11.5-14.5) 06/20/24 21:34 Plt Count 150 K/uL (130-400) 06/20/24 21:34 MPV 9.7 fL (9.4-12.4) 06/20/24 21:34 Immature Gran % (Auto) 0.4 % 06/20/24 21:34 Neut % (Auto) 91.2 % 06/20/24 21:34 Lymph % (Auto) 3.2 % 06/20/24 21:34 [place] % (Auto) 4.6 % 06/20/24 21:34 Eos % (Auto) 0.2 % 06/20/24 21:34 Baso % (Auto) 0.4 % 06/20/24 21:34 Neut # (Auto) 10.59 K/uL (1.40-6.50) H 06/20/24 21:34 Lymph # (Auto) 0.37 K/uL (1.20-3.40) L 06/20/24 21:34 [place] # (Auto) 0.54 K/uL (0.11-0.59) 06/20/24 21:34 Eos # (Auto) 0.02 K/uL (0.00-0.50) 06/20/24 21:34 Baso # (Auto) 0.05 K/uL (0.00-0.20) 06/20/24 21:34 Immature Gran # (Auto) 0.05 K/uL (0.01-0.20) 06/20/24 21:34 PT 10.9 Seconds (9.0-12.0) 06/20/24 21:34 INR 1.0 (0.9-1.1) 06/20/24 21:34 Sodium 136 mmol/L (136-145) 06/20/24 21:34 Potassium 3.6 mmol/L (3.5-5.1) 06/20/24 21:34 Chloride 100 mmol/L (98-107) 06/20/24 21:34 Carbon Dioxide 26 mmol/L (21-32) 06/20/24 21:34 Anion Gap 10 (3-11) 06/20/24 21:34 BUN 39 mg/dl (6-23) H 06/20/24 21:34 Creatinine 1.66 mg/dl (0.6-1.2) H 06/20/24 21:34 Est Cr Clr Drug Dosing 26.0 ml/min 06/20/24 21:34 Est GFR ( Amer) 31.3 ml/min 06/20/24 21:34 Est GFR (Non-Af Amer) 27.0 ml/min 06/20/24 21:34 BUN/Creatinine Ratio 23.5 (10-20) H 06/20/24 21:34 Glucose 170 mg/dl (70-99(Fasting)) H 06/20/24 21:34 Calcium 10.5 mg/dl (8.6-10.3) H 06/20/24 21:34 Troponin I High Sens 22.5 pg/ml (0-14) H 06/20/24 21:34 ECG Additional Comments: ECG. Normal sinus rhythm rate of 70. Left axis deviation. No significant change was found. QTc 427. Code Status & VTE Plan VTE Prophylaxis Plan VTE Prophylaxis will be ordered: Yes
[2024-06-21] MEDS ORDERED: hydrALAZINE HCL 20 MG/ML VIAL IV PRN (02:09)
[2024-06-21] MEDS ORDERED: ONDANSETRON INJ 2 MG/ML 2 ML VIAL IV PRN ×3 (02:09→19:09)
[2024-06-21] MEDS ORDERED: HYDROmorphone INJ 0.5 MG/0.5 ML SYR IV PRN ×3 (02:09→19:09)
[2024-06-21] MEDS: SODIUM CHLORIDE 0.9% 1,000 ML IV SCH ×2 (02:34→20:47)
--- NOTE | 2024-06-21 06:46 | Orthopedic Consultation ---
Date of Service June 21, 2024 Assessment & Plan (1) Fracture of proximal end of right fibula: I went over diagnosis and treatment options with her at the bedside today. She was awake and alert. I recommended plate fixation of the right tibia. She understands the risk, benefits, alternatives to procedure and is elected proceed. Time was spent scribing the procedure and postop expectations. She understands the procedure will either be done by myself or my partner Dr. Carrasquillo. She is currently NPO. History of Present Illness Reason for Consultation: Right tibial shaft fracture. Requesting Physician: . Attending Physician: Dayan Canales MD Adri is a pleasant 88-year-old female who lives in a house with her . She ambulates with a walker. Unfortunately she fell and twisted her ankle yesterday. She injured her right leg. She came to the emergency room where radiographs demonstrated a displaced right distal tibial shaft fracture. She had a right knee replaced in 2006. Orthopedics was consulted to evaluate and treat.. Allergies Allergy/AdvReac Type Severity Reaction Status Date / Time No Known Allergies Allergy Verified 01/02/23 16:09 Home Medications Medication Instructions Recorded Confirmed Type cholecalciferol (vitamin D3) 50 50 mcg PO DAILY 11/14/20 06/20/24 History mcg (2,000 unit) capsule acetaminophen 500 mg tablet 500 - 1,000 mg PO DIRECTED PRN 01/02/23 06/20/24 History (Tylenol Extra Strength) PAIN/FEVER aspirin 81 mg tablet,delayed 81 mg PO DAILY 01/02/23 06/20/24 History release lisinopril 20 mg tablet 20 mg PO QAM 01/02/23 06/20/24 History Past Med/Surg History Problem List Fracture of proximal end of right fibula (Acute) Acute kidney injury superimposed on chronic kidney disease (Acute) Spiral fracture of shaft of tibia (Acute) Fall from standing (Acute) Elevated troponin (Acute) Leukocytosis (Acute) Acute UTI (Acute) MIRTHA (acute kidney injury) (Acute) HTN (hypertension) Elevated troponin UTI (urinary tract infection) Fall Weakness CKD (chronic kidney disease), stage III Low back pain (Chronic) Numbness and tingling in right hand (Chronic) Dyspnea on exertion (Chronic) Weakness of right foot (Acute) TIA (transient ischemic attack) (Acute) Dyslipidemia Impaired fasting glucose HbA1c of 6.1 % July 2014 Encounter for health maintenance examination in adult Medicare annual wellness visit, subsequent Preop exam for internal medicine Cataract Encounter for pre-operative examination Medical History Hard of hearing Surgical History History of cataract surgery LEFT History of colonoscopy S/P appendectomy HX S/P total [place] [facility] [place] History Father Pancreatic cancer Mother Alzheimer disease Sister Non Hodgkin's lymphoma Denies family history of Ovarian cancer Prostate cancer Myocardial infarction Breast cancer Colorectal cancer Social History Smoking Status: Never smoker Second Hand Exposure: No; Do You Dip or Chew Tobacco: No; Tobacco Cessation Education Requested by Patient: No Hx Alcohol Use: No Hx Substance Use: No Preferred Language: Faroese Communication Ability: Effective Visual Impairment: Limited Hearing Ability: Use of Hearing Aid Caregivers Homecare Required: No Beliefs That Will Affect Care: None marital status: Current Living Situation: Spouse Current Living Situation Comment: Lives in a home with current occupational status: retired Other Information That Helps Us Care for You: No Feels Safe at Home: Yes Safety Concerns: Feels Safe At This Time Childhood Exposure to Second-Hand Smoke: No Diet: regular Diet Comment: Regular caffeine: Yes (little amount) during the past year weight has: remained stable Dental Care, Regularly: Yes Physical Activity Frequency: Does not Exercise Seatbelt Use: always Sunscreen Use: No Assistive Devices: Walker Review of Systems All systems reviewed & are unremarkable except as noted in HPI & below. Physical Exam On physical examination of the right leg, she has a trauma splint in place. She has active motion of her toes. She is neurovascular intact.. Constitutional WD/WN, vitals as above Eyes PERRL, conjunctivae normal, anicteric sclerae ENMT external ear and nose normal, oropharynx normal Neck trachea midline, no thyromegaly Respiratory normal respiratory effort Cardiovascular RRR, no murmur, no edema Gastrointestinal (Abdomen) normal bowel sounds, soft, nontender, no hepatosplenomegaly Psychiatric A+Ox3, euthymic affect Results & Data Results & Data Laboratory Results . Diagnostic Findings X-rays of the right tib-fib show a displaced spiral fracture of the distal third of the tibial shaft with a butterfly fragment.. PG Care Time/CCT Total # of Minutes Spent Total Time Spent with Patient: Total time spent is greater than 50% in coordination of care (as documented) at patient's floor/unit and/or counseling patient: Coding Level of Care Code 16009 IN/OBS CONSULT LVL 4,60M (57 - DECISION FOR SURGERY) Diagnoses Fracture of proximal end of right fibula S82.831A
--- NOTE | 2024-06-21 07:01 | XRay Report ---
XR chest 1V portable CLINICAL HISTORY: Preoperative evaluation. COMPARISON STUDY: Chest radiograph July 26, 2019. FINDINGS: Lung volumes are normal. Lungs are clear. There is no pneumothorax or pleural effusion. Mil d cardiomegaly is unchanged. Mediastinal contours are normal. There is no evidence for pulmonary rowan a. Subtle interstitial thickening is similar to prior exam. This is likely chronic. IMPRESSION: No acute cardiopulmonary findings. No significant change in appearance of the chest. ACT 112: Negative or not required by law. Electronically signed by: Trevon Espinoza M.D. 06/21/2024 6:59 AM
--- NOTE | 2024-06-21 07:21 | XRay Report ---
XR tibia fibula RT 2V, XR ankle RT 2V HISTORY: 88 years-old Female R ankle pain acute pain of the right ankle and lower leg status post tr auma COMPARISON: None TECHNIQUE: 2 views of the right tibia and fibula with 2 views of the right ankle FINDINGS: TIBIA/FIBULA: Total joint arthroplasty. There is an acute obliquely oriented fracture involving the p roximal fibular diaphysis demonstrating 2 mm lateral and 5 mm posterior displacement. There is an acu te comminuted fractures involving the distal tibial diaphysis demonstrating 5 mm volar and 8 mm media l displacement. ANKLE: Circumferential soft tissue swelling. Mild to moderate osteoarthritis of the ankle. There is a n acute nondisplaced fracture involving the base of the fifth metatarsal, likely a Ivory fracture. De generative spurring of the calcaneus. IMPRESSION: 1. Acute tibial and fibular fractures with displacement as above. 2. Acute nondisplaced fifth metatarsal fracture. ACT 112: Negative or not required by law. The above report was generated using voice recognition software. It may contain grammatical, syntax o r spelling errors. Electronically signed by: Dio Pan M.D. 06/21/2024 7:19 AM
[2024-06-21 07:49] LABS: Basophils # (auto) 0.02 K/uL (0.00-0.20); Basophils % (auto) 0.3 %; Eosinophils # (auto) 0.02 K/uL (0.00-0.50); Eosinophils % (auto) 0.3 %; Hematocrit (blood only) 37.4 % (37.0-47.0); Hemoglobin 12.8 g/dl (12.0-16.0); Immature Granulocytes # (auto) 0.02 K/uL (0.01-0.20); Immature Granulocytes % (auto) 0.3 %; Lymphocytes # (auto) 0.53 K/uL (1.20-3.40); Lymphocytes % (auto) 7.6 %; Mean Corpuscular Hemoglobin 30.8 pg (25.0-34.0); Mean Corpuscular Hgb Conc 34.2 g/dL (32.0-36.0); Mean Corpuscular Volume 89.9 fL (80.0-100.0); Monocytes # (auto) 0.54 K/uL (0.11-0.59); Monocytes % (auto) 7.7 %; Neutrophils # (auto) 5.88 K/uL (1.40-6.50); Neutrophils % (auto) 83.8 %; Platelet Count 140 K/uL (130-400); RDW Standard Deviation 42.5 fL (36.4-46.3); Red Blood Count 4.16 M/uL (4.20-5.40); White Blood Count 7.01 K/ul (4.8-10.8)
[2024-06-21 08:04] LABS: BUN Creatinine Ratio 22.8 (10-20); Calcium 9.2 mg/dl (8.6-10.3); Creatinine Clr Calc Pharmacy 30.8 ml/min; Est GFR (African American) 39.9 ml/min; Est GFR (Non-African American) 34.4 ml/min; Magnesium 1.5 mg/dl (1.7-2.4); Potassium 3.4 mmol/L (3.5-5.1)
[2024-06-21] MEDS: CHOLECALCIFEROL 25 MCG (1000 UNITS) TAB PO SCH (08:13)
--- NOTE | 2024-06-21 08:44 | Communication Note ---
Date of Service: June 21, 2024 Evaluated at bedside, reports pain well controlled Patient NPO at this time for possible fixation Denies chest pain, sob, urinary symptoms or other concerns VS stable at this time Labs with stable hgb, MIRTHA noted down from 1.5-->1.3, mild trop elevation #Right fibular fracture #Mechanical fall NPO ORtho on consult for possible surgery today Pain management prn #MIRTHA on CKDIII *resolving baseline 1.2-1.4 downtrending with gentle fluids encourage po s/p operation BMP in am #HTN hold lisiniopril rest of plan per HP
[2024-06-21] MEDS: POTASSIUM CHLORIDE / WTR 10 MEQ/100 ML PLCT IV SCH (09:15)
[2024-06-21] MEDS: MAGNESIUM SULFATE / D5W 1 GM/100 ML BAG IV SCH (09:15)
[2024-06-21 12:52] LABS: Appearance Urine Turbid (Clear); Bacteria Urine Automated 4+ (None Seen); Bilirubin Urine Negative (Negative); Blood Urine Trace (Negative); Color Urine Yellow; Glucose Urine UA Negative (Negative); Ketones Urine Negative (Negative); Leukocyte Esterase Urine 3+ (Negative); Nitrite Urine Positive (Negative); Protein Urine 1+ (Negative); Specific Gravity Urine 1.012 (1.000-1.030); Urobilinogen Urine Negative (Negative); WBC Urine Automated >50 /hpf (0-5)
[2024-06-21] MEDS ORDERED: ePHEDrine sulfate 50 MG/ML AMP IV PRN (14:02)
[2024-06-21] MEDS ORDERED: ATROPINE SULFATE 0.1 MG/ML 10ML SYR IV PRN (14:02)
[2024-06-21] MEDS ORDERED: fentaNYL citrate PF 100 MCG/2 ML VIAL IV PRN (14:02)
--- NOTE | 2024-06-21 14:02 | Anesthesiology Consultation ---
Date of Service June 21, 2024 Assessment & Plan Chart Review Chart Review: entry operator initiated History Surgery Operation Date: 06/21/24 11:00 Proposed Procedures p Right Tibia Open Reduction Internal Fixation Medial Versus Lateral - Gamaliel Carrasquillo MD Height/Weight Height: 5 ft 4 in Weight: 91.881 kg Allergies Allergy/AdvReac Type Severity Reaction Status Date / Time No Known Allergies Allergy Verified 01/02/23 16:09 Medications Home Medications Medication Instructions Recorded Confirmed Last Taken cholecalciferol (vitamin D3) 50 50 mcg PO DAILY 11/14/20 06/20/24 01/01/23 mcg (2,000 unit) capsule acetaminophen 500 mg tablet 500 - 1,000 mg PO DIRECTED PRN 01/02/23 06/20/24 Unknown (Tylenol Extra Strength) PAIN/FEVER aspirin 81 mg tablet,delayed 81 mg PO DAILY 01/02/23 06/20/24 01/01/23 release lisinopril 20 mg tablet 20 mg PO QAM 01/02/23 06/20/24 01/01/23 Active Medications Generic Name Dose Route Start Last Admin Trade Name Freq PRN Reason Stop Dose Admin Sodium Chloride 1,000 mls @ 100 mls/hr 06/21/24 02:09 06/21/24 13:05 Nss IV 07/21/24 02:08 0 mls/hr .Q10H KRISTEN Infusion Vitamin D 50 mcg 06/21/24 09:00 06/21/24 08:13 Cholecalciferol 25 Mcg (1000 Units) Tab PO 07/21/24 08:59 50 mcg DAILY KRISTEN Administration NPO Date Last Intake of Fluids: 06/20/24 Time Last Intake of Fluids: 11:00 Date Last Intake of Solids: 06/20/24 Time Last Intake of Solids: 11:00 Past Medical History Medical History Hard of hearing Past Family History Family History Father Pancreatic cancer Mother Alzheimer disease Sister Non Hodgkin's lymphoma Denies family history of Ovarian cancer Prostate cancer Myocardial infarction Breast cancer Colorectal cancer Past Surgical History Surgical History History of cataract surgery LEFT History of colonoscopy S/P appendectomy HX S/P total knee arthroplasty HX bilateral, Dr Fuentes at [facility] [place] Social History Smoking Status: Never smoker Do You Dip or Chew Tobacco: No Hx Alcohol Use: No Hx Substance Use: No substance use type: does not use Physical Exam Vital Signs Last Vital Signs Temp 97.9 F 06/21/24 13:15 Pulse 73 06/21/24 13:15 Resp 18 06/21/24 13:15 BP 149/101 H 06/21/24 13:15 Pulse Ox 96 06/21/24 13:15 O2 Del Method Room Air 06/21/24 13:15 Testing Laboratory Results 06/21/24 07:10 06/21/24 07:10 PT 10.9 Seconds (9.0-12.0) 06/20/24 21:34 INR 1.0 (0.9-1.1) 06/20/24 21:34 Urine Color Yellow 06/21/24 12:23 Urine Appearance Turbid (Clear) A 06/21/24 12:23 Urine pH 8.0 (4.5-7.5) H 06/21/24 12:23 Ur Specific [place] 1.012 (1.000-1.030) 06/21/24 12:23 Urine Protein 1+ (Negative) H 06/21/24 12:23 Urine Glucose (UA) Negative (Negative) 06/21/24 12:23 Urine Ketones Negative (Negative) 06/21/24 12:23 Urine Nitrite Positive (Negative) A 06/21/24 12:23 Ur Leukocyte Esterase 3+ (Negative) H 06/21/24 12:23 Urine WBC (Auto) >50 /hpf (0-5) H 06/21/24 12:23 Urine RBC (Auto) 3-5 /hpf (0-2) H 06/21/24 12:23 U Hyaline Cast (Auto) 3-5 /lpf (0-2) H 06/21/24 12:23 U Epithel Cells (Auto) 3-5 /hpf (0-2) H 06/21/24 12:23 Urine Bacteria (Auto) 4+ (None Seen) H 06/21/24 12:23 Electrocardiogram Date: 06/20/24 NSR @ 70 bpm Left axis deviation Mod voltage criteria for LVH Chest X-Ray Date: 06/20/24 FINDINGS: Lung volumes are normal. Lungs are clear. There is no pneumothorax or pleural effusion. Mild cardiomegaly is unchanged. Mediastinal contours are normal. There is no evidence for pulmonary edema. Subtle interstitial thickening is similar to prior exam. This is likely chronic. IMPRESSION: No acute cardiopulmonary findings. No significant change in appearance of the chest. Echocardiogram Date: 01/15/21 LV is normal in sizeSevere concentric LVH LV wall motion is normal EF 65-70% Grade 1 diastolic dysfunction AV leaflets are mod calcified with only mild restriction of leaflet mobility No hemodynamically significant valvular Trace TR Doppler findings do not suggest pulmonary HTN
[2024-06-21] MEDS ORDERED: fentaNYL citrate PF 100 MCG/2 ML VIAL ONE ×2 (14:20→16:07)
[2024-06-21] MEDS ORDERED: ROPIVACAINE 0.5% 5 MG/ML 30 ML VIAL ONE (14:22)
--- NOTE | 2024-06-21 14:34 | History & Physical Bridge Note ---
Date of Service June 21, 2024 History & Physical Bridge Note I have examined the patient, reviewed the History & Physical and in the interval since the performance of the History & Physical I have noted the following changes of clinical significance: no changes noted
[2024-06-21] MEDS ORDERED: LIDOCAINE 2% 2 ML VIAL/AMP(20MG/ML) INFIL ONE (14:42)
[2024-06-21] MEDS ORDERED: DEXAMETHASONE SOD INJ 4 MG/ML VIAL ONE (14:42)
[2024-06-21] MEDS ORDERED: ONDANSETRON INJ 2 MG/ML 2 ML VIAL ONE (14:42)
[2024-06-21] MEDS ORDERED: PROPOFOL IV EMULSION 10 MG/ML 20 ML VIAL IV ONE (14:42)
[2024-06-21] MEDS: ceFAZolin 2000MG 2,000 MG/15 ML SYR IV ONE (15:15)
[2024-06-21] MEDS ORDERED: ePHEDrine sulfate 50 MG/5 ML SYR ONE (15:39)
--- NOTE | 2024-06-21 15:58 | Electrocardiogram Report ---
Test Reason : Blood Pressure : */* mmHG Vent. Rate : 70 BPM Atrial Rate : 70 BPM P-R Int : 170 ms QRS Dur : 104 ms QT Int : 396 ms P-R-T Axes : 79 -54 66 degrees QTcB Int : 427 ms Normal sinus rhythm Left axis deviation Moderate voltage criteria for LVH, may be normal variant Poor R wave progression, consider anterior NM vs. lead placement vs. LVH Abnormal ECG When compared with ECG of 02-Jan-2023 14:15, No significant change was found Confirmed by Martín Luis ([id number] on 06/21/2024 3:57:47 PM Referred By: Veronica Rodriguez Confirmed By: Martín Luis
[2024-06-21] MEDS: BUPIVACAINE/EPINEPHRINE 0.5% MPF 1:200,000 30 ML VIAL ONE (16:48)
--- NOTE | 2024-06-21 17:35 | Operative Report ---
PG Post Operative Report Pre & Post Diagnosis Operation Date: 06/21/24 11:00 Pre-Op Diagnosis: Right comminuted and displaced tibia and fibular fracture Post-Op Diagnosis: Right comminuted and displaced tibia and fibular fracture I identified the patient and participated in the time-out.: Yes Procedure Operation Date: 06/21/24 11:00 Actual Procedures p Right Tibia, Fibula Open Reduction Internal Fixation - Gamaliel Carrasquillo MD Surgeon Gamaliel Carrasquillo MD [employer] Vin Melvin PA-C Estimated Blood Loss 30 Findings Consistent with Post-Op Diagnosis Specimens None Anesthesia Type General Regional Complications none Disposition Accompanied Patient To Recovery: No Indications Patient is an 88-year-old female who sustained injury to her right leg yesterday. She was going up some steps when that she got to the top and lost her balance and twisted and fell. Acute onset of pain. Emergency room x-ray as well as displaced comminuted distal tibia and proximal fibula fracture. The patient was admitted by hospital service, medically optimized, and indicated for surgical treatment. Description of Procedure Operative implants consisted of: 1. Synthes right anterior lateral tibial locking plate for the distal tibia. 2. 3.5 cortical screws. 3. 3.5 cortical locking screws. The patient was taken to the operating room with, identified, placed on the operating table in supine position. All contacted properly padded. IV antibiotics were provide by the anesthesia team. A popliteal block had been provided in the holding area. Dem and a general anesthetic was implemented. A right thigh drain was then placed. The right lower extremity splint was then removed. We then scrubbed the right leg with Hibiclens and then prepped with ChloraPrep. The right leg was then prepped and draped in usual sterile fashion. The right leg was elevated and exsanguinated with use of an Esmarch and a turn was placed at 300 mmHg. An anterior lateral approach to the tibia was then performed with a longitudinal incision about 1 cm lateral to the tibial crest and extending the over the dorsal medial part of the foot. Sharp dissection Through subcutaneous tissue down to the fascia. The anterior compartment fascia was opened and carefully dissected out distally taking care to protect the tibialis anterior tendon retracting it laterally. The fracture was easily exposed. Try to minimize any stripping medially. We then anatomically reduced the fracture with 3 reduction clamp. I then placed 3 lag screws across the fracture site fixing the comminuted segments together. A Synthes anterolateral right distal tibial locking plate was then selected. It was initially fixed with two 3.5 cortical screws distally and 1 cortical screw proximally to snugged the plate to the bone. Implant position was verified. We then filled and the remainder of the screw holes with locking screws. I then exchanged the 2 distal cortical screws for locking screws to decrease the prominence. There is slightly prominent posteriorly but they were at the area and screw range where he had about 5 mm increments and I thought it best to again for purchase of the bone in this osteoporotic patient. After all screw holes were filled except for 1 send final x-rays were obtained. The fracture is anatomically aligned. Attention drawn to closing. He was irrigated coconuts and normal saline. We injected locally with 30 cc of half percent Marcaine with epinephrine. The tourniquet was then let down for final tourniquet time of 74 minutes. Hemostasis sugars electrocautery. The extensor retinaculum was then closed with a 0 Vicryl suture in a [id number] fashion. I could not get any purchase of the subcutaneous tissue to the area for quality. We then closed the incision with the some #1 Prolene suture in a simple fashion followed by 3-0 nylon suture in simple fashion. The leg was then cleaned and dried a sterile dressing with Xeroform, 4 fours, sterile cast padding and a well-padded posterior and stirrup splint were applied. The patient was then brought [facility] and transferred to recovery in stable condition. The patient tolerated procedure well and there were no complications. The [employer] physician assistant manager retail, was present for the entire procedure. His assistance was required for proper patient positioning, prepping draping, surgical exposure, retraction, form the technical details of the operation, placement of hardware, closure of the incision site, and placement of the a postoperative splint. I attest to the content of the Intraoperative Record and any orders documented therein. Any exceptions are noted below.
--- NOTE | 2024-06-21 18:45 | Anesthesiology Progress Note ---
Date of Service June 21, 2024 Anesthesia Post Procedure Vital Signs Vital Signs: Temp Pulse Pulse Pulse Pulse Resp BP 06/21/24 18:15 65 18 06/21/24 18:00 78 16 06/21/24 17:50 36.4 C L 78 18 06/21/24 17:40 67 16 06/21/24 17:30 72 14 06/21/24 17:24 36.5 C 64 14 06/21/24 13:15 36.6 C 73 18 06/21/24 07:28 36.6 C 67 18 06/21/24 02:19 36.7 C 66 17 06/21/24 01:50 06/21/24 01:00 72 06/20/24 22:00 84 20 06/20/24 21:04 77 06/20/24 20:49 37.3 C 80 24 146/81 H BP BP Pulse Ox O2 Del Method O2 Flow Rate 06/21/24 18:15 140/83 96 Nasal Cannula 2 06/21/24 18:00 144/88 H 95 Nasal Cannula 2 06/21/24 17:50 144/96 H 98 Nasal Cannula 2 06/21/24 17:40 137/73 98 Nasal Cannula 2 06/21/24 17:30 139/79 97 Nasal Cannula 3 06/21/24 17:24 130/67 96 Nasal Cannula 3 06/21/24 13:15 149/101 H 96 Room Air 06/21/24 07:28 134/84 95 Room Air 06/21/24 02:19 129/75 96 Room Air 06/21/24 01:50 Room Air 06/21/24 01:00 06/20/24 22:00 135/79 97 Room Air 06/20/24 21:04 06/20/24 20:49 94 Room Air Pain Intensity Right Leg: Pain Intensity: 2 Transfer of Care Handoff Completed per policy Notes Mental Status: alert / awake / arousable and participated in evaluation Patient Amnestic to Procedure: Yes Nausea / Vomiting: adequately controlled Pain: adequately controlled Airway Patency, RR, SpO2: stable & adequate BP & HR: stable & adequate Hydration State: stable & adequate Anesthetic Complications: no major complications apparent
[2024-06-21] MEDS ORDERED: bisacodyL 10 MG SUPP PR PRN (19:09)
[2024-06-21] MEDS ORDERED: NALOXONE HCL 0.4 MG/1 ML VIAL/CARP IV PRN (19:09)
[2024-06-21] MEDS ORDERED: oxyCODONE HCL IR 5 MG TAB (IMMEDIATE RELEASE) PO PRN (19:09)
[2024-06-21] MEDS ORDERED: MAGNESIUM HYDROXIDE SUSP 30 ML UDC PO PRN (19:09)
[2024-06-21] MEDS ORDERED: METOCLOPRAMIDE HCL INJ 5 MG/ML 2 ML VIAL IV PRN (19:09)
--- NOTE | 2024-06-21 19:39 | Fluoroscopy Report ---
FL tibia/fibula RT 2V CLINICAL HISTORY: RIGHT TIB/FIB ORIF TECHNIQUE: 4 views were obtained with the C-arm in the OR with the above procedure. Total fluoroscopy time was 16.2 seconds. Radiation dose was 0.47 mGy. Comparison: Comparison is made to ankle radiograph 06/20/2024 FINDINGS/IMPRESSION: Intraoperative images were obtained of open reduction internal fixation of tibia l fracture. Please correlate with intraoperative fluoroscopy and operative report. ACT 112: Negative or not required by law. Electronically signed by: Curtis Elliott M.D. 06/21/2024 7:36 PM
[2024-06-21] MEDS: KETOROLAC TROMETHAMINE 15 MG/ML VIAL IV SCH (20:46)
[2024-06-21] MEDS: DOCUSATE SODIUM 100 MG CAP PO SCH (20:50)
[2024-06-21] MEDS: ASPIRIN 81 MG ECTAB PO SCH (20:50)
[2024-06-21] MEDS: SENNA 8.6 MG TAB PO SCH (20:50)
[2024-06-21] MEDS: ACETAMINOPHEN 500 MG TAB PO SCH (22:46)
[2024-06-21] MEDS: TRANEXAMIC ACID / 0.7% NACL 1,000 MG/100 ML BAG IV SCH (22:48)
[2024-06-21] MEDS: ceFAZolin 2000MG 2,000 MG/15 ML SYR IV SCH (22:48)
[2024-06-22 07:56] LABS: Hemoglobin 11.2 g/dl (12.0-16.0); Mean Corpuscular Hemoglobin 29.7 pg (25.0-34.0); Mean Corpuscular Hgb Conc 32.9 g/dL (32.0-36.0); Mean Corpuscular Volume 90.2 fL (80.0-100.0); Platelet Count 135 K/uL (130-400); RDW Coefficient of Variation 12.9 % (11.5-14.5); RDW Standard Deviation 42.5 fL (36.4-46.3); Red Blood Count 3.77 M/uL (4.20-5.40); White Blood Count 8.06 K/ul (4.8-10.8)
[2024-06-22 07:59] LABS: BUN Creatinine Ratio 19.5 (10-20); Calcium 7.9 mg/dl (8.6-10.3); Creatinine Clr Calc Pharmacy 34.1 ml/min; Est GFR (Non-African American) 38.9 ml/min; Magnesium 1.9 mg/dl (1.7-2.4); Phosphorus 3.2 mg/dl (2.5-4.9); Potassium 4.3 mmol/L (3.5-5.1)
[2024-06-22] MEDS: dexAMETHasone 10 MG in SYRINGE 0 ML IV SCH (08:30)
[2024-06-22] MEDS: ASCORBIC ACID 500 MG TAB PO SCH (08:31)
[2024-06-22] MEDS: lisinopril 20 MG TAB PO SCH (08:31)
[2024-06-22] MEDS: MULTIVITAMIN TAB PO SCH (08:31)
[2024-06-22] MEDS: cefTRIAXone SODIUM 2,000 MG/50 ML BAG IV SCH (10:20)
--- NOTE | 2024-06-22 13:03 | Orthopedic Progress Note ---
Date of Service June 22, 2024 Assessment & Plan (1) Spiral fracture of shaft of tibia: Plan: 88-year-old female postop day 1 from a open reduction internal fixation of a comminuted tibia fracture. She is doing well. Pain is controlled. The block is still in effect. Plan: 1. DVT prophylaxis including Thiede teds, SCDs, aspirin twice a day for 6 weeks. 2. PT/OT. As she is nonweightbearing on his right leg for the next 6 weeks. We will leave the bandage in place for the first 2 weeks. 3. Wound care. Do not leave this bandage on for 2 weeks. I need to see her back in 2 weeks for follow-up. 4. Medical management as per the medicine service. 5. Disposition. She is orthopedically okay for discharge anytime medically stable. I did see her back 2 to 3 weeks out from her surgery date. Any orthopedic questions can be directed me at [phone]. (2) Fracture of proximal end of right fibula: Admission and Anticipated Discharge Date Admission Date: June 21, 2024 Subjective 88-year-old female now postop day 1 from ORIF of right comminuted distal tibia fracture. She is doing well. She reports no pain. The block still seems to be in effect. No new complaints. No chest pain or shortness of breath. Physical Exam Physical Exam: Physical examination was a pleasant elderly female. As she sits in bed and eating her lunch she looks comfortable. Examination of the right leg reveals dressing clean dry and intact. She got pink toes with brisk refill. No significant sensory or motor function yet. Results & Data Vital Signs (Past 12 Hours) Vital Signs Temp Pulse Pulse Resp BP Pulse Ox O2 Del Method 06/22/24 12:45 36.4 C L 66 22 130/72 95 Room Air 06/22/24 12:04 36.4 C L 66 22 130/72 95 Room Air 06/22/24 10:45 36.5 C 69 18 113/67 92 Room Air 06/22/24 08:15 Room Air 06/22/24 08:06 36.4 C L 66 22 130/82 94 Room Air 06/22/24 03:01 36.3 C L 64 18 103/62 94 Room Air Laboratory Results Hemoglobin is 11.2. Hematocrit is 34.0. Electrolytes appear stable.
--- NOTE | 2024-06-22 16:11 | Hospitalist Progress Note ---
Date of Service June 22, 2024 Assessment & Plan (1) Spiral fracture of shaft of tibia: Plan: per admitting service notes with addendum: 88-year-old female with past medical history significant for ascending aortic enlargement, hypertension, paroxysmal supraventricular tachycardia, CKD stage III, osteoarthritis of knee, carpal tunnel syndrome of right wrist is status post fall and found to have distal tibial fracture and proximal fibular fracture. Patient states she was climbing steps and was almost on top when her knees gave away and she fell but did not hit her head and no loss of consciousness. tried to get her up but she could not move her ankle and son was called and the patient was brought to the ER. Currently status post splint. Seems comfortable. Hard of hearing. Denies any headache. No sore throat or cough. No fevers. Appetite is okay. Denies any chest pain or shortness of breath. No abdominal pain. No nausea. Normal bowel and bladder movements. She ambulates with walker at home and can get around the house okay. Status post fall Distal tibial and proximal femur fracture Status post splint in the ER Pain control N.p.o. IV fluids Patient ambulates with walker EKG, labs and chest x-ray okay Patient should be at acceptable risk to proceed with surgery Ortho consult 06/21 Right Tibia, Fibula Open Reduction Internal Fixation - Gamaliel Carrasquillo MD stable overall post op pain control monitor labs PT/OT evaluation Hypertension on Lisinopril monitor BP MIRTHA on CKD stage III Baseline creatinine around 1.2-1.4 crea improved to 1.2 monitor labs Mild ascending aorta enlargement at 4.3 cm On echo done in September 2023 Normal EF and grade 1 diastolic dysfunction Lower extremity edema Chronic as per family Monitor for volume overload UTI Urine culture: gram negative bacilli Ceftriaxone IV 2g Day 10/21 DVT prophylaxis: Aspirin BID per Ortho SCDs on left leg Disposition Medical floor. Full code Admission and Anticipated Discharge Date Admission Date: June 21, 2024 Subjective ff up for tibia, fibula fracture s/p surgery, etc seen resting in bed, comfortable states she feels fine overall in good spirits denies leg pain no chest pain, dyspnea, palpitations, dizziness no nausea/vomiting no other symptoms Review of Systems Review of Systems: all noted and negative except for above Physical Exam Physical Exam: General- oriented x 3, not in distress, speaks in sentences with no effort or accessory muscle use Eyes- anicteric Neck- no JVD Lungs- clear breath sounds bilaterally, no crackles/wheezing Heart- normal rate, regular rhythm; no murmurs Abdomen- normal bowel sounds, nondistended, soft, no tenderness Extremities- R lower extremity: cast in place L lower extremity: no pretibial edema, no calf tenderness Neuro- alert, oriented x 3; no gross focal neurologic deficits Skin- warm & dry Results & Data Results & Data Vital Signs (Past 12 Hours) Vital Signs Temp Pulse Pulse Resp BP Pulse Ox O2 Del Method 06/22/24 14:52 36.4 C L 67 16 114/72 94 Room Air 06/22/24 12:45 36.4 C L 66 22 130/72 95 Room Air 06/22/24 12:04 36.4 C L 66 22 130/72 95 Room Air 06/22/24 10:45 36.5 C 69 18 113/67 92 Room Air 06/22/24 08:15 Room Air 06/22/24 08:06 36.4 C L 66 22 130/82 94 Room Air all noted and reviewed including below
[2024-06-22 18:38] VITALS: O2SAT 93
[2024-06-23] MEDS: ALUMINUM/MAGNESIUM SUSP 30 ML UDC PO PRN (03:54)
--- NOTE | 2024-06-23 07:26 | Orthopedic Progress Note ---
Date of Service June 23, 2024 Assessment & Plan (1) Spiral fracture of shaft of tibia: Plan: 88-year-old female now 2 days out from ORIF of a comminuted right distal tibia and proximal fibula fracture. She is doing well. Her nerve function is returned. She is relatively pain-free. Plan: 1. DVT prophylaxis including Thiede teds, SCDs, baby aspirin twice a day for 6 weeks. 2. PT/OT. She is nonweightbearing on this right leg for the next 6 weeks. 3 pain control doing well with current pain regimen. Really not having pain to speak of. 4. Wound care. Will going to leave the splint on for the first 2 weeks. Will see her back in 2 to 3 weeks and remove the splint and evaluate the wound. 5. Disposition. She is orthopedically okay for discharge anytime medically stable. I need to see her back 2 to 3 weeks out from surgery date. Will just leave the splint in place. Needs to stay clean and dry. Elevate leg is much as possible. Nonweightbearing right leg. Any orthopedic questions can be directly [phone]. (2) Fracture of proximal end of right fibula: Admission and Anticipated Discharge Date Admission Date: June 21, 2024 Subjective 88-year-old female now postop day 2 from ORIF of right comminuted distal tibia fracture. She is doing well this morning. Her nerve function is returned. She continues to report no significant pain. Hoping to go to rehab today. Physical Exam Physical Exam: Physical examination reveals a pleasant elderly female. Lying in bed looks comfortable this morning. Examination of the right leg reveals the splint to be clean dry and intact. She can dorsiflex and plantarflex her toes appropriately. She got brisk refill. She is neurologically intact.
[2024-06-23 07:45] VITALS: BP 144/91; PULSE 65; RESP 16; TEMP 97.5
[2024-06-23 07:46] LABS: Basophils # (auto) 0.01 K/uL (0.00-0.20); Basophils % (auto) 0.1 %; Eosinophils # (auto) 0.02 K/uL (0.00-0.50); Eosinophils % (auto) 0.2 %; Hematocrit (blood only) 34.5 % (37.0-47.0); Immature Granulocytes # (auto) 0.05 K/uL (0.01-0.20); Immature Granulocytes % (auto) 0.4 %; Lymphocytes # (auto) 0.94 K/uL (1.20-3.40); Lymphocytes % (auto) 7.6 %; Mean Corpuscular Hemoglobin 30.5 pg (25.0-34.0); Mean Corpuscular Hgb Conc 34.8 g/dL (32.0-36.0); Mean Corpuscular Volume 87.8 fL (80.0-100.0); Monocytes # (auto) 1.17 K/uL (0.11-0.59); Monocytes % (auto) 9.4 %; Neutrophils # (auto) 10.24 K/uL (1.40-6.50); Neutrophils % (auto) 82.3 %; Platelet Count 146 K/uL (130-400); RDW Standard Deviation 41.9 fL (36.4-46.3); Red Blood Count 3.93 M/uL (4.20-5.40); White Blood Count 12.43 K/ul (4.8-10.8)
[2024-06-23 08:13] LABS: Calcium 8.3 mg/dl (8.6-10.3); Potassium 4.3 mmol/L (3.5-5.1)
[2024-06-23 08:19] LABS: BUN Creatinine Ratio 28.4 (10-20); Creatinine Clr Calc Pharmacy 29.7 ml/min; Est GFR (African American) 38.2 ml/min; Est GFR (Non-African American) 32.9 ml/min
--- NOTE | 2024-06-23 15:19 | Hospitalist Progress Note ---
Date of Service June 23, 2024 Assessment & Plan (1) Spiral fracture of shaft of tibia: Plan: per admitting service notes with addendum: 88-year-old female with past medical history significant for ascending aortic enlargement, hypertension, paroxysmal supraventricular tachycardia, CKD stage III, osteoarthritis of knee, carpal tunnel syndrome of right wrist is status post fall and found to have distal tibial fracture and proximal fibular fracture. Patient states she was climbing steps and was almost on top when her knees gave away and she fell but did not hit her head and no loss of consciousness. tried to get her up but she could not move her ankle and son was called and the patient was brought to the ER. Currently status post splint. Seems comfortable. Hard of hearing. Denies any headache. No sore throat or cough. No fevers. Appetite is okay. Denies any chest pain or shortness of breath. No abdominal pain. No nausea. Normal bowel and bladder movements. She ambulates with walker at home and can get around the house okay. Status post fall Distal tibial and proximal femur fracture 06/21 Right Tibia, Fibula Open Reduction Internal Fixation - Gamaliel Carrasquillo MD 06/23 stable overall post op recommendations per Ortho: 1. DVT prophylaxis including Thiede teds, SCDs, baby aspirin twice a day for 6 weeks. 2. PT/OT. She is nonweightbearing on this right leg for the next 6 weeks. 3 pain control doing well with current pain regimen. Really not having pain to speak of. 4. Wound care. Will going to leave the splint on for the first 2 weeks. Will see her back in 2 to 3 weeks and remove the splint and evaluate the wound. 5. Disposition. She is orthopedically okay for discharge anytime medically stable. I need to see her back 2 to 3 weeks out from surgery date. Will just leave the splint in place. Needs to stay clean and dry. Elevate leg is much as possible. Nonweightbearing right leg. Any orthopedic questions can be directly [phone]. Hypertension on Lisinopril monitor BP MIRTHA on CKD stage III Baseline creatinine around 1.2-1.4 crea improved to 1.2 monitor labs Mild ascending aorta enlargement at 4.3 cm On echo done in September 2023 Normal EF and grade 1 diastolic dysfunction Lower extremity edema Chronic as per family Monitor for volume overload UTI Urine culture: E coli pansensitive Ceftriaxone IV 2g Day 2--> transition to Cefdinir 300mg BID x 3 more days probiotics daily x 2 weeks DVT prophylaxis: Aspirin BID per Ortho SCDs on left leg Disposition transition to [facility] Admission and Anticipated Discharge Date Admission Date: June 21, 2024 Subjective ff up for s/p tib/fib orif, etc seen resting in bed, comfortable states she feels fine overall in good spirits had some pain on the lower leg, relieved with pain medication no chest pain, dyspnea, palpitations, dizziness no nausea/vomiting, abdominal pain no other symptoms states she is ready for discharge to Acute Rehab today no other symptoms Review of Systems Review of Systems: all noted and negative except for above Physical Exam Physical Exam: General- oriented x 3, not in distress, speaks in sentences with no effort or accessory muscle use Eyes- anicteric Neck- no JVD Lungs- clear breath sounds bilaterally, no rales/wheezes Heart- normal rate, regular rhythm; (+) grade 1-2 murmur Abdomen- normal bowel sounds, nondistended, soft, no tenderness Extremities- no pretibial edema, no calf tenderness Neuro- alert, oriented x 3; no gross focal neurologic deficits Skin- warm & dry Results & Data Results & Data Vital Signs (Past 12 Hours) Vital Signs Temp Pulse Resp BP Pulse Ox O2 Del Method 06/23/24 07:44 36.4 C L 65 16 144/91 H 93 Room Air all noted and reviewed including below
--- NOTE | 2024-06-23 15:35 | Discharge Summary ---
Discharge Summary Date of Service June 23, 2024 Principal Dx & Hospital Course #1 = Principal Diagnosis (1) Spiral fracture of shaft of tibia: per admitting service notes with addendum: 88-year-old female with past medical history significant for ascending aortic enlargement, hypertension, paroxysmal supraventricular tachycardia, CKD stage III, osteoarthritis of knee, carpal tunnel syndrome of right wrist is status post fall and found to have distal tibial fracture and proximal fibular fracture. Patient states she was climbing steps and was almost on top when her knees gave away and she fell but did not hit her head and no loss of consciousness. tried to get her up but she could not move her ankle and son was called and the patient was brought to the ER. Currently status post splint. Seems comfortable. Hard of hearing. Denies any headache. No sore throat or cough. No fevers. Appetite is okay. Denies any chest pain or shortness of breath. No abdominal pain. No nausea. Normal bowel and bladder movements. She ambulates with walker at home and can get around the house okay. Status post fall Distal tibial and proximal femur fracture 06/21 Right Tibia, Fibula Open Reduction Internal Fixation - Gamaliel Carrasquillo MD 06/23 stable overall post op recommendations per Ortho: 1. DVT prophylaxis including Thiede teds, SCDs, baby aspirin twice a day for 6 weeks. 2. PT/OT. She is nonweightbearing on this right leg for the next 6 weeks. 3 pain control doing well with current pain regimen. Really not having pain to speak of. 4. Wound care. Will going to leave the splint on for the first 2 weeks. Will see her back in 2 to 3 weeks and remove the splint and evaluate the wound. 5. Disposition. She is orthopedically okay for discharge anytime medically stable. I need to see her back 2 to 3 weeks out from surgery date. Will just leave the splint in place. Needs to stay clean and dry. Elevate leg is much as possible. Nonweightbearing right leg. Any orthopedic questions can be directly [phone]. Hypertension on Lisinopril monitor BP MIRTHA on CKD stage III Baseline creatinine around 1.2-1.4 crea improved to 1.2 monitor labs Mild ascending aorta enlargement at 4.3 cm On echo done in September 2023 Normal EF and grade 1 diastolic dysfunction Lower extremity edema Chronic as per family Monitor for volume overload UTI Urine culture: E coli pansensitive Ceftriaxone IV 2g Day 2--> transition to Cefdinir 300mg BID x 3 more days probiotics daily x 2 weeks DVT prophylaxis: Aspirin BID per Ortho SCDs on left leg Disposition transition to [facility] Notes For Next Care Provider Medication Changes From Visit Please see medication reconciliation section. Admission HPI Per Admitting Provider 88-year-old female with past medical history significant for ascending aortic enlargement, hypertension, paroxysmal supraventricular tachycardia, CKD stage III, osteoarthritis of knee, carpal tunnel syndrome of right wrist is status post fall and found to have distal tibial fracture and proximal fibular fracture. Patient states she was climbing steps and was almost on top when her knees gave away and she fell but did not hit her head and no loss of consciousness. tried to get her up but she could not move her ankle and son was called and the patient was brought to the ER. Currently status post splint. Seems comfortable. Hard of hearing. Denies any headache. No sore throat or cough. No fevers. Appetite is okay. Denies any chest pain or shortness of breath. No abdominal pain. No nausea. Normal bowel and bladder movements. She ambulates with walker at home and can get around the house okay. Past medical history. As mentioned above Past surgical history. Total knee arthroplasty. Right carpal tunnel surgery. Knee arthroscopy. [place] appendectomy in 1946. Social history. . No smoking. No alcohol use. No drug use. Family history. Sister had breast cancer. Sister had diabetes. Daughter had breast cancer. Father had cancer. Admission Exam Per Admitting Provider General- Not in distress Head- atraumatic Eyes- PERRL. ENT- oropharynx clear Neck- supple, no JVD. Lungs- clear to auscultation no wheezing or crackles Heart- regular rhythm; no murmur, no gallop. Abdomen- normal bowel sounds, soft, nontender, no distension Extremities- Right lower extremity in splint, edema seen in left lower extremity Neuro- alert, oriented PERRL,no facial palsy; no dysarthria; obeys simple commands Discharge Exam General- oriented x 3, not in distress, speaks in sentences with no effort or accessory muscle use Eyes- anicteric Neck- no JVD Lungs- clear breath sounds bilaterally, no rales/wheezes Heart- normal rate, regular rhythm; (+) grade 1-2 murmur Abdomen- normal bowel sounds, nondistended, soft, no tenderness Extremities- no pretibial edema, no calf tenderness Neuro- alert, oriented x 3; no gross focal neurologic deficits Skin- warm & dry Updated Medication List Medication Instructions Recorded Confirmed Type cholecalciferol (vitamin D3) 50 50 mcg PO DAILY 11/14/20 06/20/24 History mcg (2,000 unit) capsule acetaminophen 500 mg tablet 500 - 1,000 mg PO DIRECTED PRN 01/02/23 06/20/24 History (Tylenol Extra Strength) PAIN/FEVER aspirin 81 mg tablet,delayed 81 mg PO DAILY 01/02/23 06/20/24 History release lisinopril 20 mg tablet 20 mg PO QAM 01/02/23 06/20/24 History acetaminophen 500 mg tablet 750 mg (1.5 x 500 mg) PO Q6H PRN 06/23/24 Rx (Tylenol Extra Strength) fever or pain #20 tabs ascorbic acid (vitamin C) 500 mg 500 mg PO BIDM 30 days #60 tabs 06/23/24 Rx tablet (Vitamin C) aspirin 81 mg tablet,delayed 81 mg PO BID #30 tabs 06/23/24 Rx release cefdinir 300 mg capsule 300 mg PO BID 3 days #6 caps 06/23/24 Rx docusate sodium 100 mg capsule 100 mg PO BID 30 days #60 caps 06/23/24 Rx multivitamin with folic acid 400 1 tab PO QAM 30 days #30 tabs 06/23/24 Rx mcg tablet (Daily-Star (with folic acid)) sennosides 8.6 mg tablet (Senokot) 17.2 mg (2 x 8.6 mg) PO HS 30 days 06/23/24 Rx #60 tabs Hospital Stay Data Consultations 06/20/24 21:25 Consult Orthopedic Surgery Routine 06/20/24 22:10 ED Decision to Admit Stat Procedures Performed Operation Date: 06/21/24 11:00 Actual Procedures p Right Tibia, Fibula Open Reduction Internal Fixation - Gamaliel Carrasquillo MD Diagnostic Imagining Performed 06/21/24 FL tibia/fibula RT 2V Routine 06/21/24 14:27 US - OR guided needle placemen Routine XR tibia fibula RT 2V, XR ankle RT 2V HISTORY: 88 years-old Female R ankle pain acute pain of the right ankle and lower leg status post trauma COMPARISON: None TECHNIQUE: 2 views of the right tibia and fibula with 2 views of the right ankle FINDINGS: TIBIA/FIBULA: Total joint arthroplasty. There is an acute obliquely oriented fracture involving the proximal fibular diaphysis demonstrating 2 mm lateral and 5 mm posterior displacement. There is an acute comminuted fractures involving the distal tibial diaphysis demonstrating 5 mm volar and 8 mm medial displacement. ANKLE: Circumferential soft tissue swelling. Mild to moderate osteoarthritis of the ankle. There is an acute nondisplaced fracture involving the base of the fifth metatarsal, likely a Ivory fracture. Degenerative spurring of the calcaneus. IMPRESSION: 1. Acute tibial and fibular fractures with displacement as above. 2. Acute nondisplaced fifth metatarsal fracture. ACT 112: Negative or not required by law. XR chest 1V portable CLINICAL HISTORY: Preoperative evaluation. COMPARISON STUDY: Chest radiograph July 26, 2019. FINDINGS: Lung volumes are normal. Lungs are clear. There is no pneumothorax or pleural effusion. Mild cardiomegaly is unchanged. Mediastinal contours are normal. There is no evidence for pulmonary edema. Subtle interstitial thickening is similar to prior exam. This is likely chronic. IMPRESSION: No acute cardiopulmonary findings. No significant change in appearance of the chest. ACT 112: Negative or not required by law. Electronically signed by: Trevon Espinoza M.D. 06/21/2024 6:59 AM Pending Results Patient Have Any Pending Studies at Discharge: No Discharge Instructions Given to Patient (Per Discharging Provider) Keep splint and dressing clean, dry, and in place until follow-up appointment Non-weightbearing right leg for 6 weeks. Keep pressure off heel at all times. 1. DVT prophylaxis including Thiede teds, SCDs, baby aspirin twice a day for 6 weeks. 2. PT/OT. She is nonweightbearing on this right leg for the next 6 weeks. 3 pain control doing well with current pain regimen. Really not having pain to speak of. 4. Wound care. Will going to leave the splint on for the first 2 weeks. Will see her back in 2 to 3 weeks and remove the splint and evaluate the wound. 5. Disposition. She is orthopedically okay for discharge anytime medically stable. I need to see her back 2 to 3 weeks out from surgery date. Will just leave the splint in place. Needs to stay clean and dry. Elevate leg is much as possible. Nonweightbearing right leg. Any orthopedic questions can be directly [phone]. Re-evaluate need for Wood Catheter daily. Total Time Total Time Spent Total Time Spent (In Minutes): 40 minutes
--- NOTE | 2024-06-27 12:45 | Coding Query ---
To promote full compliance with coding requirements relating to patient care, physician participation is requested in all cases of career development associate uncertainty. Please assist us with the question(s) below: Coding Question(s): It was noted in the operative report that the patient is osteoporotic. According to coding guidelines "a code for osteoporotic fracture, and not a traumatic fracture, should be used for any patient with known osteoporosis who suffers a fracture, even if the patient had a minor fall or trauma, if that fall or trauma would not usually break a normal, healthy bone." Please indicate below the type of fracture: Physician's Response(s): ( x) Osteoporotic fracture of Tibia and Fibula ( ) Traumatic fracture of Tibia and Fibula ( ) Other, please specify MTDD
--- NOTE | 2024-06-27 13:24 | Coding Query ---
CODING QUERY To promote full compliance with coding requirements relating to patient care, provider participation is requested in all cases of staff nurse icu resource team uncertainty. Please assist us with the question(s) below: Coding Question(s): H&P, Hospitalist accounts and progress notes for 06/22 and 06/23/24 all contain "femur fracture." Please clarify if there was also a femur fx and whether it was due to osteoporosis, trauma, other. Physician's Response(s): Error on my partl no femoral fracture Correct Dx: Fracture of proximal end of right fibula Thanks Thank you Lakesha Hwang Principal Diagnosis: "that condition established after study, to be chiefly responsible for occasioning the admission of the patient to the hospital for care." Co-Existing Principal Diagnosis: "when two or more diagnoses equally meet the criteria for principal diagnosis as determined by the circumstances of admission, diagnostic work up, and/or therapy provided, and the Alphabetic Index, Tabular List, or another coding guideline does not provide sequencing direction, any one of the diagnoses may be sequenced first." "When the physician has documented what appears to be a current diagnosis in the body of the record, but has not included the diagnosis in the final diagnostic statement, the physician should be asked whether the diagnosis should be added." (Source [facility]oding [facility] 2 QTR90. p3-4) MOISE
== END 2024-06-23 16:30 | DRG 493 ==
LOC: ED 20:42 → 3W 06-21 00:58 → SUATTDRO 06-21 00:58 → 3W 06-21 01:50

== ENCOUNTER 2024-10-14 11:50 | Inpatient (IN) ==
[2024-10-14 12:20] LABS: Basophils # (auto) 0.03 K/uL (0.00-0.20); Basophils % (auto) 0.2 %; Eosinophils # (auto) 0.02 K/uL (0.00-0.50); Eosinophils % (auto) 0.1 %; Hematocrit (blood only) 42.6 % (37.0-47.0); Hemoglobin 14.2 g/dl (12.0-16.0); Immature Granulocytes # (auto) 0.12 K/uL (0.01-0.20); Immature Granulocytes % (auto) 0.7 %; Lymphocytes # (auto) 0.78 K/uL (1.20-3.40); Lymphocytes % (auto) 4.8 %; Mean Corpuscular Hemoglobin 28.4 pg (25.0-34.0); Mean Corpuscular Hgb Conc 33.3 g/dL (32.0-36.0); Mean Corpuscular Volume 85.2 fL (80.0-100.0); Mean Platelet Volume 8.9 fL (9.4-12.4); Monocytes # (auto) 0.78 K/uL (0.11-0.59); Monocytes % (auto) 4.8 %; Neutrophils # (auto) 14.49 K/uL (1.40-6.50); Neutrophils % (auto) 89.4 %; Platelet Count 461 K/uL (130-400); RDW Coefficient of Variation 13.8 % (11.5-14.5); RDW Standard Deviation 42.9 fL (36.4-46.3); White Blood Count 16.22 K/ul (4.8-10.8)
[2024-10-14 12:38] LABS: Alanine Aminotransferase 14 U/L (7-52); Albumin Level 3.8 gm/dl (3.4-5.0); Alkaline Phosphatase 107 U/L (34-104); Anion Gap 10 (3-11); Aspartate Aminotransferase 15 U/L (13-39); BUN Creatinine Ratio 19.6 (10-20); Bilirubin,Total 0.8 mg/dl (0.2-1.0); Blood Urea Nitrogen 20 mg/dl (6-23); Calcium 10.1 mg/dl (8.6-10.3); Carbon Dioxide 28 mmol/L (21-32); Chloride 97 mmol/L (98-107); Globulin 3.9 gm/dl (2.5-4.0); Glucose 164 mg/dl (70-99(Fasting)); Potassium 4.3 mmol/L (3.5-5.1); Sodium 135 mmol/L (136-145); Total Protein 7.7 gm/dl (6.0-8.3)
--- NOTE | 2024-10-14 14:43 | CT Scan Report ---
ABDOMEN AND PELVIS CT WITHOUT CONTRAST; CT LUMBAR SPINE WITHOUT IV CONTRAST HISTORY: Acute low back pain. Chronic kidney disease. CKD, low back pain, UTI TECHNIQUE: Multiaxial CT images of the abdomen, pelvis and lumbar spine were performed without contra st. A dose lowering technique was utilized adhering to the principles of ALARA. COMPARISON STUDY: None. FINDINGS: CT ABDOMEN/PELVIS: Mild dilation of the ascending thoracic aorta, 4.4 cm. Trace pleural effusions wit h mild subsegmental bibasilar atelectasis/scarring. No pneumatosis or pneumoperitoneum. Benign-appearing calcification of the inferior spleen. Unremarkable pancreas and adrenal glands. Chol elithiasis gallbladder distention without CT evidence of acute cholecystitis. Unremarkable liver. Cor tical thinning of the kidneys. 10 mm nonobstructing calcified involving the inferior poles of the kid neys. Exophytic 4.7 cm cyst of the superior pole left kidney. There is still thickening noted within the left renal pelvis with adjacent mild stranding. No ureteral calculi or hydronephrosis. Thickening of the postmenopausal endometrium measures up to 1.4 cm. Fundal calcifications are likely fibroids. The urinary bladder is within normal limits. No adnexal mass lesions. Atherosclerosis of the aorta. Mild distal esophageal wall thickening. No bowel obstruction or bowel wall thickening. No ascites or mesenteric inflammation. No CT evidence of acute appendicitis. Tiny fat filled umbilical hernia. Para vertebral edema is moderate centered around the T11 vertebral body. Subtle acute fractures are noted within the inferior endplate of T11 and superior endplate of T12. No retropulsion or significant vert ebral body height loss. No endplate erosions are seen. CT LUMBAR SPINE: Severe intervertebral disc space narrowing at L2-L3 and L3-L4. Moderate to advanced multilevel facet arthrosis. Multilevel spondylitic spurring with posterior disc osteophyte complex re lations at L2-L3 and L3-L4. Suboptimal evaluation of the central canal and neural foramen by CT techn ique. Transitional lumbosacral anatomy. No acute fracture, subluxation or endplate erosion identified . IMPRESSION: 1. Nonobstructing bilateral nephrolithiasis. No ureteral calculi or hydronephrosis. 2. Subtle acute nondisplaced fractures are seen within the inferior endplate of T11 and superior endp late of T12. No retropulsion or significant vertebral body height loss. 3. Mild urothelial thickening with slight prominence of the left renal pelvis, suboptimally evaluated secondary to motion artifact. Correlate with urinalysis. 4. Cholelithiasis without CT evidence of acute cholecystitis. 5. Probable calcified uterine fibroids with nonspecific thickening of the postmenopausal endometrium. 6. Additional findings as above. ACT 112: Negative or not required by law. The above report was generated using voice recognition software. It may contain grammatical, syntax o r spelling errors. Electronically signed by: Dio Pan M.D. 10/14/2024 2:42 PM
[2024-10-14 15:54] LABS: Appearance Urine Turbid (Clear); Bacteria Urine Automated 4+ (None Seen); Bilirubin Urine Negative (Negative); Blood Urine 1+ (Negative); Color Urine Yellow; Glucose Urine UA Negative (Negative); Hyaline Casts Urine Present /lpf (None Presnt); Ketones Urine Negative (Negative); Leukocyte Esterase Urine 3+ (Negative); Nitrite Urine Positive (Negative); Protein Urine 1+ (Negative); Specific Gravity Urine 1.017 (1.000-1.030); Urobilinogen Urine Negative (Negative); WBC Urine Automated >50 /hpf (0-5); pH Urine 6.5 (4.5-7.5)
--- NOTE | 2024-10-14 16:21 | History & Physical Report ---
Date of Service October 14, 2024 Assessment & Plan (1) Recurrent falls: (2) Thoracic spine fracture: (3) Back pain: Plan: Patient is 88 year old female with PMH HTN, CKD III presented to ER with c/o recurrent falls, back pain x several weeks with acute worsening today. Family report pt with baseline mental status CT Lumbar spine. CT Abd/pelvis: Nonobstructing bilateral nephrolithiasis. No ureteral calculi or hydronephrosis. Subtle acute nondisplaced fractures are seen within the inferior endplate of T11 and superior endplate of T12. No retropulsion or significant vertebral body height loss. Mild urothelial thickening with slight prominence of the left renal pelvis, suboptimally evaluated secondary to motion artifact. Correlate with urinalysis. Cholelithiasis without CT evidence of acute cholecystitis. Probable calcified uterine fibroids with nonspecific thickening of the postmenopausal endometrium. Scheduled Tylenol, oxycodone, morphine as needed pain Lidocaine patch Fall precautions Consult ortho spine PT/OT Eval Obtain admission EKG and since had what appeared to be sinus tachycardia on monitor CBC, BMP in am (4) Acute UTI: Plan: WBC: 16. Pt also been on steroids recently for back pain. UA: +nitrite, 3+leuk esterase, 4+bacteria In ER given Rocephin Continue Rocephin Urine culture pending (5) HTN (hypertension): Plan: Stable Continue lisinopril (6) CKD (chronic kidney disease), stage III: Plan: Cr: 1.0. Baseline Cr: 1.1-1.3 Monitor renal functions, avoid nephrotoxic agents when possible DVT Prophylaxis Heparin SQ Admit telemetry Conditional as per discussion with pt and pt's . Wants CPR, defibrillation, medications but does not want intubation or ventillator Follows with Dr Rodriguez for routine care Pt was seen and care coordinated with Dr Gutierrez. See addendum I spent a total of 77 minutes reviewing notes, outpatient records, labs, medication, coordinating, documenting and providing care for this patient excluding time spent in the performance of separately billed services. History of Present Illness Chief Complaint: Back pain Primary Care Provider: Veronica Rodriguez MD Patient is 88 year old female with PMH HTN, CKD III presented to ER with c/o recurrent falls, back pain x several weeks with acute worsening today. Per inpatient chart review history [facility] hospitalization 06/21/24-06/23/24 for fall with distal tibia fracture and proximal tibia fracture s/p ORIF by Dr Carrasquillo and was discharged to [facility] and ultimately discharged home. She was also treated for E coli UTI and completed antibiotic coarse. She since has been ambulating with use of walker. Family report since 06/2024 has noted progressive decline in ambulatory status. States she has recurrent falls, and falls at least twice a week. Patient states approximately 2-3 weeks ago she slipped off the portable toilet and fell onto buttocks and hit her head. Denies LOC, WILSON, dizziness. States she has also fallen twice this week. C/O low back pain past several weeks but seems worse today. Seen PCP office 10/08/24 for back pain and was given Medrol dosepak and recommended to stop aspirin and start Voltaren gel and PT was recommended. Reports chronic urinary incontinence and sometimes fecal incontinence as seems like she can't get to bathroom quick enough with her ambulatory dysfunction. Daughter states she has needed to change her a couple of times secondary to being fecal and urine soiled. States past couple days seems more generalized weakness and since yesterday having trouble ambulating secondary to reported bilateral leg weakness. Denies extremity paresthesias. Daughter is concerned for UTI and in past had weakness with UTI's. Reports for months has had some intermittent vomiting. Was placed on Protonix. Denies any vomiting today. Patient denies abdominal pain, diarrhea, constipation. Family denies any worsening confusion. States patient at her baseline mental status. Reports she often is forgetful and often unsure of date. Denies fever/chills, diaphoresis, WILSON, dizziness, syncope, vision changes, neck pain, CP, SOB, palpitations, cough, sore throat, rhinorrhea, abdominal pain, paresthesias, extremity edema, rashes, dysuria, hematuria. Allergies Allergy/AdvReac Type Severity Reaction Status Date / Time No Known Allergies Allergy Verified 08/12/24 08:41 Home Medications Medication Instructions Recorded Confirmed Type cholecalciferol (vitamin D3) 50 50 mcg PO DAILY 11/14/20 10/14/24 History mcg (2,000 unit) capsule lisinopril 20 mg tablet 20 mg PO QAM 01/02/23 10/14/24 History aspirin 81 mg tablet,delayed 81 mg PO DAILY 10/14/24 10/14/24 History release pantoprazole 40 mg tablet,delayed 40 mg PO DAILY 10/14/24 10/14/24 History release Past Med/Surg History Problem List Back pain Thoracic spine fracture Recurrent falls Fracture of proximal end of right fibula (Acute) Acute kidney injury superimposed on chronic kidney disease (Acute) Spiral fracture of shaft of tibia (Acute) Fall from standing (Acute) Elevated troponin (Acute) Leukocytosis (Acute) Acute UTI (Acute) MIRTHA (acute kidney injury) (Acute) HTN (hypertension) Elevated troponin UTI (urinary tract infection) Fall Weakness CKD (chronic kidney disease), stage III Low back pain (Chronic) Numbness and tingling in right hand (Chronic) Dyspnea on exertion (Chronic) Weakness of right foot (Acute) TIA (transient ischemic attack) (Acute) Dyslipidemia Impaired fasting glucose HbA1c of 6.1 % July 2014 Encounter for health maintenance examination in adult Medicare annual wellness visit, subsequent Preop exam for internal medicine Cataract Encounter for pre-operative examination Medical History Hard of hearing Surgical History History of cataract surgery LEFT History of colonoscopy S/P appendectomy HX S/P total knee arthroplasty HX bilateral, Dr Fuentes [place] [facility] [place] Family History Father Pancreatic cancer Mother Alzheimer disease Sister Non Hodgkin's lymphoma Denies family history of Ovarian cancer Prostate cancer Myocardial infarction Breast cancer Colorectal cancer Social History Smoking Status: Never smoker Second Hand Exposure: No; Do You Dip or Chew Tobacco: No; Hx Alcohol Use: No Hx Substance Use: No Preferred Language: Upper Sorbian Communication Ability: Effective Visual Impairment: Limited Hearing Ability: Use of Hearing Aid 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 Beliefs That Will Affect Care: None marital status: Current Living Situation: Spouse Current Living Situation Comment: Lives in a home with current occupational status: retired Other Information That Helps Us Care for You: No Feels Safe at Home: Yes Childhood Exposure to Second-Hand Smoke: No Diet: regular Diet Comment: Regular caffeine: Yes (little amount) during the past year weight has: remained stable Dental Care, Regularly: Yes Physical Activity Frequency: Does not Exercise Seatbelt Use: always Sunscreen Use: No Assistive Devices: Hospital Bed Review of Systems Review of Systems: All systems reviewed & are unremarkable except as noted in HPI & below Physical Exam Physical Exam: General: no acute distress, WDWN Head: normocephalic, atraumatic Eyes: PERRL, EOM's intact, conjunctiva non-injected, anicteric ENT: normal inspection external ears, nose, mucous membranes moist Neck: supple, trachea midline, non-tender Lungs: clear, no respiratory distress, no wheezing/rhonchi/rales CV: RRR, no pretibial edema Abd: normal BS, soft, non-tender, no CVA tenderness to palpation Back: no ecchymosis. No current tenderness to palpation of back Ext: no cyanosis, no calf tenderness, bilateral pedal pushes and pulls intact, sensation to light touch intact Neuro: Alert, oriented to person, place, month and year, unsure of day. no focal deficits noted, normal affect Skin: warm, dry Results & Data Results & Data Vital Signs (Past 12 Hours) Vital Signs Temp Pulse Resp BP Pulse Ox O2 Del Method 10/14/24 16:20 101 H 10/14/24 11:57 36.8 C 100 H 20 155/95 H 97 Room Air Laboratory Results Short CBC 10/14/24 Range/Units 12:05 WBC 16.22 H (4.8-10.8) K/ul Hgb 14.2 (12.0-16.0) g/dl Hct 42.6 (37.0-47.0) % Plt Count 461 H (130-400) K/uL BMP 10/14/24 12:05 Sodium 135 L Potassium 4.3 Chloride 97 L Carbon Dioxide 28 BUN 20 Creatinine 1.02 Glucose 164 H Calcium 10.1 Liver Function 10/14/24 Range/Units 12:05 Total Bilirubin 0.8 (0.2-1.0) mg/dl AST 15 (13-39) U/L ALT 14 (7-52) U/L Alkaline Phosphatase 107 H (34-104) U/L Albumin 3.8 (3.4-5.0) gm/dl Urine 10/14/24 Range/Units Unknown Urine Color Yellow Urine Appearance Turbid A (Clear) Urine pH 6.5 (4.5-7.5) Ur Specific Plain 1.017 (1.000-1.030) Urine Protein 1+ H (Negative) Urine Glucose (UA) Negative (Negative) Diagnostic Findings Abdomen/Pelvis CT 10/14/24 13:[address] WITHOUT CONTRAST; CT LUMBAR SPINE WITHOUT IV CONTRAST HISTORY: Acute low back pain. Chronic kidney disease. CKD, low back pain, UTI TECHNIQUE: Multiaxial CT images of the abdomen, pelvis and lumbar spine were performed without contrast. A dose lowering technique was utilized adhering to the principles of ALARA. COMPARISON STUDY: None. FINDINGS: CT ABDOMEN/PELVIS: Mild dilation of the ascending thoracic aorta, 4.4 cm. Trace pleural effusions with mild subsegmental bibasilar atelectasis/scarring. No pneumatosis or pneumoperitoneum. Benign-appearing calcification of the inferior spleen. Unremarkable pancreas and adrenal glands. Cholelithiasis gallbladder distention without CT evidence of acute cholecystitis. Unremarkable liver. Cortical thinning of the kidneys. 10 mm nonobstructing calcified involving the inferior poles of the kidneys. Exophytic 4.7 cm cyst of the superior pole left kidney. There is still thickening noted within the left renal pelvis with adjacent mild stranding. No ureteral calculi or hydronephrosis. Thickening of the postmenopausal endometrium measures up to 1.4 cm. Fundal calcifications are likely fibroids. The urinary bladder is within normal limits. No adnexal mass lesions. Atherosclerosis of the aorta. Mild distal esophageal wall thickening. No bowel obstruction or bowel wall thickening. No ascites or mesenteric inflammation. No CT evidence of acute appendicitis. Tiny fat filled umbilical hernia. Paravertebral edema is moderate centered around the T11 vertebral body. Subtle acute fractures are noted within the inferior endplate of T11 and superior endplate of T12. No retropulsion or significant vertebral body height loss. No endplate erosions are seen. CT LUMBAR SPINE: Severe intervertebral disc space narrowing at L2-L3 and L3-L4. Moderate to advanced multilevel facet arthrosis. Multilevel spondylitic spurring with posterior disc osteophyte complex relations at L2-L3 and L3-L4. Suboptimal evaluation of the central canal and neural foramen by CT technique. Transitional lumbosacral anatomy. No acute fracture, subluxation or endplate erosion identified. IMPRESSION: 1. Nonobstructing bilateral nephrolithiasis. No ureteral calculi or hydronephrosis. 2. Subtle acute nondisplaced fractures are seen within the inferior endplate of T11 and superior endplate of T12. No retropulsion or significant vertebral body height loss. 3. Mild urothelial thickening with slight prominence of the left renal pelvis, suboptimally evaluated secondary to motion artifact. Correlate with urinalysis. 4. Cholelithiasis without CT evidence of acute cholecystitis. 5. Probable calcified uterine fibroids with nonspecific thickening of the postmenopausal endometrium. 6. Additional findings as above. ACT 112: Negative or not required by law. The above report was generated using voice recognition software. It may contain grammatical, syntax or spelling errors. Electronically signed by: Dio Pan M.D. 10/14/2024 2:[address] 10/14/24 13:[address] WITHOUT CONTRAST; CT LUMBAR SPINE WITHOUT IV CONTRAST HISTORY: Acute low back pain. Chronic kidney disease. CKD, low back pain, UTI TECHNIQUE: Multiaxial CT images of the abdomen, pelvis and lumbar spine were performed without contrast. A dose lowering technique was utilized adhering to the principles of ALARA. COMPARISON STUDY: None. FINDINGS: CT ABDOMEN/PELVIS: Mild dilation of the ascending thoracic aorta, 4.4 cm. Trace pleural effusions with mild subsegmental bibasilar atelectasis/scarring. No pneumatosis or pneumoperitoneum. Benign-appearing calcification of the inferior spleen. Unremarkable pancreas and adrenal glands. Cholelithiasis gallbladder distention without CT evidence of acute cholecystitis. Unremarkable liver. Cortical thinning of the kidneys. 10 mm nonobstructing calcified involving the inferior poles of the kidneys. Exophytic 4.7 cm cyst of the superior pole left kidney. There is still thickening noted within the left renal pelvis with adjacent mild stranding. No ureteral calculi or hydronephrosis. Thickening of the postmenopausal endometrium measures up to 1.4 cm. Fundal calcifications are likely fibroids. The urinary bladder is within normal limits. No adnexal mass lesions. Atherosclerosis of the aorta. Mild distal esophageal wall thickening. No bowel obstruction or bowel wall thickening. No ascites or mesenteric inflammation. No CT evidence of acute appendicitis. Tiny fat filled umbilical hernia. Paravertebral edema is moderate centered around the T11 vertebral body. Subtle acute fractures are noted within the inferior endplate of T11 and superior endplate of T12. No retropulsion or significant vertebral body height loss. No endplate erosions are seen. CT LUMBAR SPINE: Severe intervertebral disc space narrowing at L2-L3 and L3-L4. Moderate to advanced multilevel facet arthrosis. Multilevel spondylitic spurring with posterior disc osteophyte complex relations at L2-L3 and L3-L4. Suboptimal evaluation of the central canal and neural foramen by CT technique. Transitional lumbosacral anatomy. No acute fracture, subluxation or endplate erosion identified. IMPRESSION: 1. Nonobstructing bilateral nephrolithiasis. No ureteral calculi or hydronephrosis. 2. Subtle acute nondisplaced fractures are seen within the inferior endplate of T11 and superior endplate of T12. No retropulsion or significant vertebral body height loss. 3. Mild urothelial thickening with slight prominence of the left renal pelvis, suboptimally evaluated secondary to motion artifact. Correlate with urinalysis. 4. Cholelithiasis without CT evidence of acute cholecystitis. 5. Probable calcified uterine fibroids with nonspecific thickening of the postmenopausal endometrium. 6. Additional findings as above. ACT 112: Negative or not required by law. The above report was generated using voice recognition software. It may contain grammatical, syntax or spelling errors. Electronically signed by: Dio Pan M.D. 10/14/2024 2:42 PM Supervising Physician Co-Signing Physician Notes Attending Addendum: Case reviewed with the advanced practitioner. I have personally performed a history and physical examination on the patient. I have reviewed the advanced practitioner's documentation on the date of service referenced in note, and I agree with, and take responsibility for the plan of care. please refer to her notes for full details patient seen and examined, records reviewed by myself as well ASSESSMENT AND PLAN T11/T12 fracture History of fall Pain control Orthopedic spine consulted UTI Follow-up cultures Empiric IV ceftriaxone other diagnoses and plan of care as per advanced practitioner's notes total time spent 20 minutes Angel Gutierrez MD
[2024-10-14] MEDS: cefTRIAXone SODIUM 2,000 MG/50 ML BAG IV STA (16:25)
--- OUTSIDE RECORDS SUMMARY | 2024-10-14 16:33 | External Medical Summary | Summary of Care ---
Author Name Unknown Organization [facility] Address [address] [place] [address] Phone [phone] Care Team Providers Care Acetone Button Paster Name Role Phone Veronica Rodriguez MD Primary Care Provider Reason for Referral * Evaluate & Treat - Unlimited Visits (Within 30 days (routine)) - Authorized Specialty Diagnoses / Procedures Referred By Briseida ramos Referred To Contact Physical Therapy / Physical Medicine And Rehab Diagnoses Chronic midline low back pain with left-sided sciatica Veronica Rodriguez MD [address] [address] Phone: tel: fax: Referral ID Status Reason Start Date Expiration Date Visits Requested Visits Authorized [id number] Authorized Specialty Services Required [phone] Question Answer Referral Priority Within 30 days (routine) Where should this appointment be scheduled? External - [facility] Reason for Visit * Reason Comments Acute Back pain Encounter Details Date Type Department Care Team (Late st Contact Info) Description 10/08/2024 2:20 PM EST Office Visit Family Practice [facility] [address] [phone] Veronica Rodriguez MD [address] [address] Chronic midline low back pain with left-sided sciatica*; Risk and functional assessment Allergies No known active allergiesdocumented as of this encounter (statuses as of 10/08/2024) Medications CALTRATE 600 + D 600-125 MG-IU PO TABS 1 tab twice a day 03/19/19 97 Active Lisinopril 20 MG Oral Tablet (Prinivil)Jerri cations:HTN, goal below 140/90 Take 1 Tablet by mouth in the morning. 90 Tablet 3 05/02/20 24 Active Pantoprazole Sodium 40 MG Oral Tablet Delayed Release (Protonix) Take 1 Tablet by mouth in the morning. 08/18/20 24 Active methylPREDNISo lone 4 MG Oral Tablet Therapy Pack (Medrol Dosepack)Indic ations:Chronic midline low back pain with left-sided sciatica follow package directions 21 Tablet 10/08/20 24 Active ASPIRIN 81 MG PO TABSIndication s:Ankle Fracture Take 1 Tablet by mouth 2 times a day. 024 Discontinued documented as of this encounter (statuses as of 10/08/2024) Active Problems Problem Noted Date Diagnosed Date Fracture of proximal end of right fibula 024 Low back pain 10/08/2024 S/P appendectomy 10/08/2024 PSVT (paroxysmal supraventricular tachycardia) 0 01/29/2023 Ascending aorta enlargement 04/02/2022 Carpal tunnel syndrome of right wrist 10/04/2021 Stage 3a chronic kidney disease 10/04/2021 HTN, goal below 140/90 08/30/2021 S/P total knee arthroplasty 07/21/2007 Osteoarthritis of knee 07/07/2007 documented as of this encounter (statuses as of 10/08/2024) Immunizations Name Administration Dates Next Due Pneumococcal Conjugate Vaccine, 20-valent (Prevn ar20) 04/30/2023 documented as of this encounter Social History Tobacco Use Types Packs/Day Years Used Date Smoking Tobacco: Never Smokeless Tobacco: Never Alcohol Use Standard Drinks/Week Comments No 0 (1 standard drink = 0.6 oz pur e alcohol) PHQ-2 Answer Date Recorded PHQ Adult Total Score 0 10/04/2021 Comments No Sex and Gender Information Value Date Recorded Sex Assigned at Not on file Legal Sex Female 7:20 AM EST Gender Identity Not on file Sexual Orientation Not on file documented as of this encounter Last Filed Vital Signs Vital Sign Reading Time Taken Comments Blood Pressure 128/78 10/08/2024 2:27 PM EST Pulse 88 10/08/2024 2:27 PM EST Temperature 37.2 C (98.9 F) 10/08/2024 2:27 PM ES T Respiratory Rate - - Oxygen Saturation 98% 10/08/2024 2:27 PM EST Inhaled Oxygen Concentration - - Weight - - Height - - Body Mass Index - - documented in this encounter Patient Instructions * Patient Instructions* Chrissy Caceres LPN - 10/08/2024 3:01 PM EST Next Steps: -- take regular Tylenol during the day and use Voltaren gel on your lower back to improve pain. -- stop baby aspirin completely. -- if not improving after 3 days, then can try Medrol dosepak. Call us with any worsening in vomiting or stomach upset. -- restart physical therapy. Patient Instructions - Fall Prevention (This education is for all patients over 65 regardless of symptoms) Remember to take your current medications as prescribed. In order to prevent falls, you are encouraged to: Exercise Utilize assistive/adaptive devices Avoid multifocal lenses when walking Avoid hazards in home Maintain a regular toileting schedule Any questions please contact our office. Preventing Falls in the Home (This education is for all patients over 65 regardless of symptoms) As you get older, falls are more likely. Thats because your reaction time slows. Your muscles and joints may also get stiffer, making them less flexible. Illness, medications, and vision changes can also affect your balance. A fall could leave you unable to live on your own. To make your home safer, follow these tips: Floors Put nonskid pads under area rugs Remove throw rugs Replace worn floor coverings Tack carpets firmly to each step on carpeted stairs. Put nonskid strips on the edges of uncarpeted stairs Keep floors and stairs free of clutter and cords Arrange furniture so there are clear pathways Clean up any spills right away Bathrooms Install grab bars in the tub or shower Apply nonskid strips or put a nonskid rubber mat in the tub or shower Sit on a bath chair to bathe Use bathmats with nonskid backing Lighting Keep a flashlight in each room Put a nightlight along the pathway between the bedroom and the bathroom [employer] Patient Education Copyright 2008 - 2010 [employer] except where otherwise noted Preventing Falls: Exercises to Improve Balance, Flexibility, Strength, and Staying Power (This education is for all patients over 65 regardless of symptoms) Certain types of exercises may help make you less likely to fall. Try the ones below. Or do other exercises that your healthcare provider suggests. Depending on your health, you may need to start slowly. Dont let that stop you. Even small amounts of exercise can help you. Be sure to talk to yourhealthcare provider before starting any exercise program. Improve Balance Many types of exercise can help improve balance. Jose chi and yoga are good examples. Heres another one to try. You can do it anytime and almost anywhere. Stand next to a counter or solid support. Push yourself up onto your tiptoes. Hold for 5 seconds. If you start to lose your balance, hold on to the counter. Rest and repeat 5 times. Work up to holding for 20 to 30 seconds, if you can. Increase Flexibility Being more flexible makes it easier for you to move around safely. Try exercises like the seated hamstring stretch. Sit in a chair and put one foot on a stool. Straighten your leg and reach with both hands down either side of your leg. Reach as far down your leg as you can. Hold for about 20 seconds. Go back to the starting position. Then repeat 5 times. Switch legs. Build Strength Resistance exercises help build strength. You can do them without equipment. Or you can use weights, elastic bands, or special machines. One such exercise is called the biceps curl. You can hold a 1 pound weight or even a can of soup. Do this exercise at least 3 times a week. Strive for everyday. Sit up straight in a chair. Keep your elbow close to your body and your wrist straight. Bend your arm, moving your hand up to your shoulder. Then slowly lower your arm. Repeat 5 times. Switch to the other arm. Build Your Staying Power Aerobic exercises make your heart and lungs stronger so you can keep moving longer. Walking and swimming are two of the best types of exercises you can do. Using a stationary bike is great, too. Find an aerobic exercise that you enjoy. Start slowly and build up. Even 5 minutes is helpful. Aimfor a goal of 30 minutes, at least 3 times a week. You dont have to do 30 minutes in one session. Break it up and walk a little throughout the day. More Helpful Tips Start easy. Slowly work up to doing more. Talk with your healthcare provider about the best exercises for you. Call senior centers or health clubs about exercise programs. If needed, have a family member watch you walk every so often to check your stability. Exercise with a friend. Choose an activity you both enjoy. Try exercises that you can do anytime, anywhere. Here are two examples. Have someone with you when you first try these: Practice walking by placing one foot right in front of the other. Stand up and sit down 10 times. Repeat this throughout the day. [employer] Patient Education Copyright 2008 - 2010 [employer] except where otherwise noted. Preventing Falls: Moving Safely Using a Cane or Walker (This education is for all patients over 65 regardless of symptoms) Keep the cane away from your feet so you dont trip. A walking aid, such as a cane or walker, can help you stay more independent and avoid falls. Remember to keep your walking aid within easy reach when youre in a chair or in bed. And learn how to use it safely so you dont injure yourself. Using a Cane If you have a stronger side, hold the cane on that side. Get your balance. Move the cane and your weaker leg forward. Support your weight on both the cane and your weaker side. Step with your stronger leg. Start again from step 1. If youre using a folding walker, be sure you know how to lock it open. Check that its locked open before each use. Using a Walker Roll the walker (or lift it, if youre using one without wheels) forward about 12 inches. Step forward with your weaker leg first. Use the walker to help keep your balance. Bring your other foot forward to the center of the walker. Start again from step 1. Helpful Tips Check with your healthcare provider about the right walking aid to use. Ask about a walker with a seat attached. Check the tips of your cane or walker to make sure they have nonskid covers. Move slowly from room to room. Dont jones. Sit down to get dressed. Use a shlomo pack or backpack to keep your hands free. Get help for jobs that mean climbing, even on a stepstool. [employer] Patient Education Copyright 2008 - 2010 [employer] except where otherwise noted. Urinary Incontinence Plan of Care Documentation: (This education is for all patients over 65 regardless of symptoms) Current medications reconciled. Patient encouraged to: Practice kegal exercises Provide education materials Use the restroom every 2 hours throughout the day Limit caffeine, alcohol, spicy foods and acidic foods Keep a bladder diary Limit fluid intake 3-4 hours before bed Lose weight Prevent constipation Take fluid pills at a time when you can get to the bathroom quickly Control sugar better if diabetic Limit fluid intake to 60 oz. per day Wear support stockings (TEDs)if you have edema Chrissy Caceres LPN 10/08/2024 Kegel Exercises Kegel exercises dont require special clothing or equipment. Theyre easy to learn and simple to do. And if you do them right, no one can tell youre doing them, so they can be done almost anywhere. Your doctor, nurse, or physical therapist can answer any questions you have and help you get started. A Weak Pelvic Floor The pelvic floor muscles may weaken due to aging, and vaginal childbirth, injury, surgery, chronic cough, or lack of exercise. If the pelvic floor is weak, your bladder and other pelvic organs may sag out of place. The urethra may also open too easily and allow urine to leak out. Kegel exercises can help you strengthen your pelvic floor muscles so they can better support the pelvic organs and control urine flow. How Kegel Exercises Are Done Try each of the Kegel exercises described below. When youre doing them, try not to move your leg, buttock, or stomach muscles. While youre urinating, try to stop the flow of urine. Start and stop it as often as you can. Contract as if you were stopping your urine stream, but do it when youre not urinating. Tighten your rectum as if trying not to pass gas. Contract your anus, but dont move your buttocks. Helpful Hints Do your Kegels as often as you can. The more you do them, the faster youll feel the results. Pick an activity you do often as a reminder. For instance, do your Kegels every time you sit down. Tighten your pelvic floor before you sneeze, get up from a chair, cough, laugh, or lift. This protects your pelvic floor from injury and can help prevent urine leakage. Try to hold each Kegel for a slow count to five. You probably wont be able to hold them for thatlong at first, but keep practicing. It will get easier as your pelvic floor gets stronger. Eventually, special weights that you place in your vagina may be recommended to help make your Kegels even more effective. [employer] Patient Education Copyright 2008 - 2010 [employer] except where otherwise noted. Here are some helpful tips for your urinary incontinence: (This education is for all patients over 65 regardless of symptoms) Practice Kegel exercises Use the restroom every 2 hours throughout the day Limit caffeine, alcohol, spicy foods, and acidic foods Keep a bladder diary Limit fluid intake 3-4 hours before bed Lose weight Prevent constipation Take fluid pills at a time when can get to the bathroom quickly Control sugar better if diabetic Limit fluid intake to 60 oz. per day Any questions, please feel free to contact our office. documented in this encounter Progress Notes * Chrissy Caceres LPN - 10/08/2024 3:09 PM EST Fall Risk Plan of Care Documentation: - Current medications reconciled Patient encouraged to: - Exercise - Provide education materials for Core strengthening - Utilize assistive/adaptive devices - Provide education materials - Avoid multifocal lenses when walking - Avoid hazards in home - Provide education materials - Maintain a regular toileting schedule Chrissy Caceres LPN 10/08/2024 * Veronica Rodriguez MD - 10/08/2024 2:41 PM EST Images from the original note were not included. History of Present Illness Adri Kc is a 88 year old female that presents for Acute (Back pain ) Longstanding back pain for years. Got worse while in hospital, couldn't sleep on side. Deconditioned. Did PT but stopped because back pain prevented from doing exercises. Got a lot worse when got home. Saw Dr Allen this week and not able to do any adjustments because of inflammation, really painful.Occasionally taking tylenol PM to help sleep. Heat/ice, BenGay, IcyHot. Lidocaine patch did nothing. Hasn't tried voltaren on back yet, has for knees. Legs are weak. Leaning forward helps a little. No change in bladder/bowels. Never had prednisone before. Hasn't tried Tylenol during day. Not sure why she's taking baby ASA - no hx stroke/TIA or CAD/CO/stent. Hx knee replacements Traumatic R tib-fib fx in Jun s/p ORIF. Here with sons - they report she is falling a lot despite walker. Using commode in bedroom. Current medications and allergies reviewed. Past medical history and problem list reviewed. Physical Exam Vitals: 10/08/24 1427 Temp: 98.9 F (37.2 C) Pulse: 88 SpO2: 98% BP: 128/78 BP Readings from Last 3 Encounters: 10/08/24 128/78 07/11/24 122/84 05/02/24 138/84 Wt Readings from Last 3 Encounters: 05/02/24 203 lb (92.1 kg) 11/04/23 199 lb (90.3 kg) 04/30/23 198 lb 3.2 oz (89.9 kg) Physical Exam Vitals and nursing note reviewed. Constitutional: Appearance: Normal appearance. Comments: wheelchair Musculoskeletal: Comments: Spine nontender Indicates mid-lumbar spine is area of pain but not tender to palpation No paraspinal tenderness Strength 4/5 in R leg, 4+/5 in L leg. Unable to elicit patellar reflexes. Neurological: Mental Status: She is alert. I have reviewed the following results: CBC and BMP Assessment and Plan Chronic midline low back pain with left-sided sciatica Patient Instructions Next Steps: -- take regular Tylenol during the day and use Voltaren gel on your lower back to improve pain. -- stop baby aspirin completely. -- if not improving after 3 days, then can try Medrol dosepak. Call us with any worsening in vomiting or stomach upset. -- restart physical therapy. - methylPREDNISolone 4 MG Oral Tablet Therapy Pack (Medrol Dosepack); follow package directions - PHYSICAL THERAPY REFERRAL OP Risk and functional assessment Wrap-Up Time: I spent a total of 30-39 minutes (exact time 35 mins) on the date of service in preparation, delivery, and documentation of the care provided to Adri Kc excluding any time spent in the performance of separately billed services. documented in this encounter Nursing Notes * Chrissy Caceres LPN - 10/08/2024 2:20 PM EST The patient has been properly identified by confirmation of name and date of . Chief Complaint Patient presents with Acute Back pain Broke R leg in jun 2024. In rehab after & extended care at [facility]. Dr. Allen is who she sees for ortho who rec prednisone. Over the past month she has a fall every 2-3 days. Has had 6 falls at least this month. Pain in back in in the lower mid section. BL leg weakness. Present nausea that is often, on PPI for reflux. Not helping much. Family concerns for possible UTI-- pt dose not complain of any UTI Sx at this moment. Pt can not pee currently, gave water. documented in this encounter Plan of Treatment Upcoming Encounters Date Type Department Care Team (Late st Contact Info) Description 11/02/2024 2:00 PM EST Office Visit Cardiology, [facility] [address] [facility] [address] [place] [address] Lillie Heard PA-C [address] [phone] 05/05/2025 12:20 PM EDT Office Visit Family [facility] [address] [place] [address] Veronica Rodriguez MD [address] [place] [address] Scheduled Referrals Name Type Priority Associated Diagnoses Orde r Schedule PHYSICAL THERAPY REFERRAL OP Referral Within 30 days (routine) Chronic midline low back pain with left-sided sciatica Ordered: 10/08/2024 Health Maintenance Due Date Last Done Comments DXA Scan 1934 CKD PHOS USE SMARTSET 88516 1952 DTap/Tdap Vaccines (1 - Tdap) 1954 Zoster Vaccines (1 of 2) 1984 Adult Wellness Visit 2000 Depression Screening 10/04/2022 10/04/2021 Influenza Vaccine (FLU shot) (#1) 2024 Albumin/Creatinine Ratio 11/23/2024 11/23/2023 CKD HGB USE SMARTSET 46539 07/01/202507/01, 06/24/2024, 11/04/2023, Additional history exists Pneumococcal Vaccine: 65+ Years Completed 04/30/2023 COVID-19 [...] this encounter Medical Devices Implanted Type Area Lead Presser Device Identifier Shelf Expiration Date Model / Serial / Lot Femur Porous Lps - [id number] Implanted:Qty: 1 on 07/19/2007 at OR [facility] [place] Right: Knee [employer] [id number] / / Block [place] Yels3 10 - [id number] Implanted:Qty: 1 on 07/19/2007 at OR [facility] [place] Right: Knee [employer] [id number] / / Femur Porous Lps - [id number] Implanted:Qty: 1 on 07/24/2008 at OR [facility] [place] Left: Knee [employer] [id number] / / [id number] Block [place] Syls3 10 - [id number] Implanted:Qty: 1 on 07/24/2008 at OR [facility] [place] Left: Knee [employer] [id number] / / [id number] documented as of this encounter Visit Diagnoses Diagnosis Chronic midline low back pain with left-sided sciatica- Primary Risk and functional assessment Screening for unspecified condition documented in this encounter Advance Directives * Full Code (Latest Code Status on File) Date Activated Date Inactivated Comments 07/24/2008 11:40 AM 07/26/2008 4:16 PM * Full Code Date Activated Date Inactivated Comments 07/24/2008 6:07 AM 07/24/2008 11:40 AM Care Teams Acetone Button Paster Relationship Specialty Start Date End Date Veronica Rodriguez MD [address] [facility] [address] [place] [id number] PCP - General Internal Medicine 08/30/21 documented as of this encounter
[2024-10-14] MEDS ORDERED: ONDANSETRON INJ 2 MG/ML 2 ML VIAL IV PRN (18:07)
[2024-10-14] MEDS ORDERED: POLYETHYLENE (MIRALAX) 17 GM PACK PO PRN (18:07)
[2024-10-14] MEDS: Patient's HEIGHT &/or WEIGHT Needed SCH (18:24)
[2024-10-14] MEDS: ACETAMINOPHEN 500 MG TAB PO SCH (18:26)
--- NOTE | 2024-10-14 19:13 | Emergency Department Note ---
Impression & Plan Acute lumbar back pain ED Provider Note CHIEF COMPLAINT: Urinary symptoms, back pain HISTORY OF PRESENT ILLNESS: This 88-year-old female patient with past medical history of chronic kidney disease, TIA, UTI, hypertension, recent fall with tibial fracture, presents to the emergency department with complaints of back pain for the last several weeks that was significant today. Patient's sons believe she has been falling quite frequently. There is no known direct injury to the back however. She has not had any fevers but is incontinent of urine. Today she was in tears complaining of pain in the small of her back. Patient recently completed a course of prednisone for the back pain. REVIEW OF SYSTEMS: A review of systems was performed with positives and pertinent negatives listed in the history of present illness. 10 systems were reviewed and are otherwise negative. ALLERGIES: see below MEDICATIONS: see below PMH: see below SOCIAL HISTORY: see below DDx: UTI, viral illness, pneumonia, fracture, muscular discomfort, kidney stone among others. PHYSICAL EXAM: Vital signs reviewed. General: Elderly, chronically ill-appearing 88-year-old female, in no significant distress. Sitting in a wheelchair. HEENT: No scleral icterus, PERRLA, neck supple. Atraumatic. Cardiovascular: Regular rate and rhythm, no extra sounds. Pulmonary: Clear to auscultation bilaterally, normal work of breathing. Abdomen: Soft, nontender, nondistended, positive bowel sounds. Musculoskeletal: Atraumatic, no peripheral edema. Neurologic: Patient awake alert and pleasantly confused, speech is clear. Skin: Warm, dry, no rash EMERGENCY DEPARTMENT COURSE/MDM: This patient was evaluated and appeared to be in no significant distress. IV access was obtained and laboratory work was drawn. The patient was initially evaluated in the waiting area due to high volumes and acuity. CT imaging of the lumbar spine reveals acute nondisplaced fractures within the superior endplate of T11 and T12. Patient has noted to have nonobstructing bilateral nephrolithiasis. Otherwise please refer to the dictation below. With some difficulty, the nursing staff took the patient to the bathroom for urine sample, she apparently lost all strength in her legs and nearly fell. With the support of 2 nurses, the patient was placed back into the wheelchair. She is noted to have a UTI on laboratory work. I did discuss the findings of thoracic compression fractures and UTI, and the plan patient's family they feel comfortable with admission for further management. The hospitalist service was contacted. Patient was started on IV ceftriaxone. MONITORING: An order for cardiac monitoring was placed and the patient is noted to be in a sinus rhythm 87 beats per minute. RADIOLOGY: CT of the lumbar spine: IMPRESSION: 1. Nonobstructing bilateral nephrolithiasis. No ureteral calculi or hydronephrosis. 2. Subtle acute nondisplaced fractures are seen within the inferior endplate of T11 and superior endplate of T12. No retropulsion or significant vertebral body height loss. 3. Mild urothelial thickening with slight prominence of the left renal pelvis, suboptimally evaluated secondary to motion artifact. Correlate with urinalysis. 4. Cholelithiasis without CT evidence of acute cholecystitis. 5. Probable calcified uterine fibroids with nonspecific thickening of the postmenopausal endometrium. 6. Additional findings as above. DISPOSITION: Admission Past Med/Surg History Problem List (Updated 10/16/24 @ 00:00 by Christina Saul MD) Acute lumbar back pain (Acute) Back pain Thoracic spine fracture Recurrent falls Fracture of proximal end of right fibula (Acute) Acute kidney injury superimposed on chronic kidney disease (Acute) Spiral fracture of shaft of tibia (Acute) Fall from standing (Acute) Elevated troponin (Acute) Leukocytosis (Acute) Acute UTI (Acute) MIRTHA (acute kidney injury) (Acute) HTN (hypertension) Elevated troponin UTI (urinary tract infection) Fall Weakness CKD (chronic kidney disease), stage III Low back pain (Chronic) Numbness and tingling in right hand (Chronic) Dyspnea on exertion (Chronic) Weakness of right foot (Acute) TIA (transient ischemic attack) (Acute) Dyslipidemia Impaired fasting glucose HbA1c of 6.1 % July 2014 Encounter for health maintenance examination in adult Medicare annual wellness visit, subsequent Preop exam for internal medicine Cataract Encounter for pre-operative examination Medical History Hard of hearing Surgical History History of cataract surgery LEFT History of colonoscopy S/P appendectomy HX S/P total knee arthroplasty HX bilateral, Dr Fuentes at 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 Beliefs That Will Affect Care: None marital status: Current Living Situation: Spouse Current Living Situation Comment: Lives in a home with current occupational status: retired Other Information That Helps Us Care for You: No Feels Safe at Home: Yes Childhood Exposure to Second-Hand Smoke: No Diet: regular Diet Comment: Regular caffeine: Yes (little amount) during the past year weight has: remained stable Dental Care, Regularly: Yes Physical Activity Frequency: Does not Exercise Seatbelt Use: always Sunscreen Use: No Assistive Devices: Hospital Bed Allergies Allergies Allergy/AdvReac Type Severity Reaction Status Date / Time No Known Allergies Allergy Verified 08/12/24 08:41 Home Meds Home Medications Medication Instructions Recorded Confirmed cholecalciferol (vitamin D3) 50 50 mcg PO DAILY 11/14/20 10/14/24 mcg (2,000 unit) capsule lisinopril 20 mg tablet 20 mg PO QAM 01/02/23 10/14/24 aspirin 81 mg tablet,delayed 81 mg PO DAILY 10/14/24 10/14/24 release pantoprazole 40 mg tablet,delayed 40 mg PO DAILY 10/14/24 10/14/24 release Results & Data (ED) Vital Signs Vital Signs - 24 hr 10/14/24 11:57 10/14/24 16:20 10/14/24 16:21 Temperature 36.8 C Temperature Source Temporal Artery Scan Pulse Rate 100 H 101 H 97 H Pulse Rate [Apical] Pulse Rate from SpO2 Sensor Respiratory Rate 20 27 H Respiratory Effort / Characteristics Non-Labored Spontaneous Respiratory Depth Normal Respiratory Pattern Blood Pressure 155/95 H Blood Pressure [Right Arm] Blood Pressure Mean 115 Blood Pressure Mean [Right Arm] Blood Pressure Position Sitting Pulse Oximetry 97 Oxygen Delivery Method Room Air Sepsis Recent Fever Within 48 Hours No Sepsis New/Unexplained Change in Mental Status No Sepsis Action Taken by Nursing No Action Required 10/14/24 16:27 10/14/24 16:30 10/14/24 16:30 Temperature Temperature Source Pulse Rate 101 H Pulse Rate [Apical] 102 H Pulse Rate from SpO2 Sensor 99 H Respiratory Rate 20 23 Respiratory Effort / Characteristics Non-Labored Spontaneous Respiratory Depth Normal Respiratory Pattern Regular Blood Pressure 116/86 Blood Pressure [Right Arm] 128/96 Blood Pressure Mean 99 Blood Pressure Mean [Right Arm] 106 Blood Pressure Position Pulse Oximetry 94 94 Oxygen Delivery Method Room Air Sepsis Recent Fever Within 48 Hours Sepsis New/Unexplained Change in Mental Status Sepsis Action Taken by Nursing 10/14/24 16:57 Temperature Temperature Source Pulse Rate 101 H Pulse Rate [Apical] Pulse Rate from SpO2 Sensor 102 H Respiratory Rate 24 Respiratory Effort / Characteristics Respiratory Depth Respiratory Pattern Blood Pressure Blood Pressure [Right Arm] Blood Pressure Mean Blood Pressure Mean [Right Arm] Blood Pressure Position Pulse Oximetry 94 Oxygen Delivery Method Sepsis Recent Fever Within 48 Hours Sepsis New/Unexplained Change in Mental Status Sepsis Action Taken by Retirement Medications Current Medication List: was personally reviewed by me Laboratory Data Attestation: I reviewed the patient's lab results. 10/15/24 04:37 10/15/24 04:37 Lab Results 10/14/24 Range/Units 12:05 WBC 16.22 H (4.8-10.8) K/ul RBC 5.00 (4.20-5.40) M/uL Hgb 14.2 (12.0-16.0) g/dl Hct 42.6 (37.0-47.0) % MCV 85.2 (80.0-100.0) fL MCH 28.4 (25.0-34.0) pg MCHC 33.3 (32.0-36.0) g/dL RDW Std Deviation 42.9 (36.4-46.3) fL RDW Coeff of Chris 13.8 (11.5-14.5) % Plt Count 461 H (130-400) K/uL MPV 8.9 L (9.4-12.4) fL Immature Gran % (Auto) 0.7 % Neut % (Auto) 89.4 % Lymph % (Auto) 4.8 % [place] % (Auto) 4.8 % Eos % (Auto) 0.1 % Baso % (Auto) 0.2 % Neut # (Auto) 14.49 H (1.40-6.50) K/uL Lymph # (Auto) 0.78 L (1.20-3.40) K/uL [place] # (Auto) 0.78 H (0.11-0.59) K/uL Eos # (Auto) 0.02 (0.00-0.50) K/uL Baso # (Auto) 0.03 (0.00-0.20) K/uL Immature Gran # (Auto) 0.12 (0.01-0.20) K/uL Sodium 135 L (136-145) mmol/L Potassium 4.3 (3.5-5.1) mmol/L Chloride 97 L (98-107) mmol/L Carbon Dioxide 28 (21-32) mmol/L Anion Gap 10 (3-11) BUN 20 (6-23) mg/dl Creatinine 1.02 (0.6-1.2) mg/dl Est Cr Clr Drug Dosing Not Reportable eGFR 52.59 BUN/Creatinine Ratio 19.6 (10-20) Glucose 164 H (70-99(Fasting)) mg/dl Calcium 10.1 (8.6-10.3) mg/dl Total Bilirubin 0.8 (0.2-1.0) mg/dl AST 15 (13-39) U/L ALT 14 (7-52) U/L Alkaline Phosphatase 107 H (34-104) U/L Total Protein 7.7 (6.0-8.3) gm/dl Albumin 3.8 (3.4-5.0) gm/dl Globulin 3.9 (2.5-4.0) gm/dl Albumin/Globulin Ratio 1.0 (0.9-2) Administered Medications Acetaminophen (Acetaminophen 500 Mg Tab) 1,000 mg PO Q8H KRISTEN Stop: 11/13/24 18:06 Last Admin: 10/15/24 18:39 Dose: 1,000 mg Documented By: Admin: 10/15/24 09:39 Dose: 1,000 mg Documented By: Admin: 10/15/24 02:16 Dose: Not Given Documented By: Admin: 10/14/24 18:26 Dose: 1,000 mg Documented By: BCGabby Heparin Sodium (Porcine) (Heparin Sod 5,000 Unit/0.5 Ml Vial) 5,000 units SQ Q12 KRISTEN Stop: 11/13/24 20:59 Last Admin: 10/15/24 19:50 Dose: 5,000 units Documented By: Admin: 10/15/24 08:31 Dose: 5,000 units Documented By: Admin: 10/14/24 21:31 Dose: 5,000 units Documented By: NUVIA Ceftriaxone Sodium (Rocephin) 2,000 mg in 50 mls @ 100 mls/hr IV Q24H KRISTEN Stop: 10/20/24 15:59 Last Infusion: 10/15/24 18:00 Dose: Infused Documented By: Admin: 10/15/24 16:18 Dose: 100 mls/hr Documented By: UNA Lisinopril (Lisinopril 20 Mg Tab) 20 mg PO QAM KRISTEN Stop: 11/14/24 08:59 Last Admin: 10/15/24 08:32 Dose: 20 mg Documented By: BELEM Oxycodone HCl (Oxycodone Hcl Ir 5 Mg Tab (Immediate Release)) 5 mg PO Q6H PRN PRN Reason: Moderate Pain (Scale 4, 5, 6) Stop: 10/28/24 18:06 Last Admin: 10/15/24 22:18 Dose: 5 mg Documented By: Admin: 10/15/24 14:41 Dose: 5 mg Documented By: Admin: 10/15/24 10:57 Dose: 5 mg Documented By: BELEM Pantoprazole Sodium (Pantoprazole 40 Mg Tab) 40 mg PO DAILY KRISTEN Stop: 11/14/24 08:59 Last Admin: 10/15/24 08:32 Dose: 40 mg Documented By: BELEM Vitamin D (Cholecalciferol 25 Mcg (1000 Units) Tab) 50 mcg PO DAILY KRISTEN Stop: 11/14/24 08:59 Last Admin: 10/15/24 08:32 Dose: 50 mcg Documented By: BELEM Discontinued Medications Ceftriaxone Sodium (Rocephin) 2,000 mg in 50 mls @ 100 mls/hr IV NOW STA Stop: 10/14/24 16:05 Last Infusion: 10/14/24 17:15 Dose: Infused Documented By: Admin: 10/14/24 16:25 Dose: 100 mls/hr Documented By: FRANCHESCA Lidocaine (Lidocaine 5% 1 Patch) 1 patch TD NOW STA Stop: 10/14/24 18:08 Last Admin: 10/14/24 19:44 Dose: 1 patch Documented By: NUVIA Miscellaneous (Patient's Height &/Or Weight Needed) 1 each N/A Q2H [facility] Stop: 11/13/24 18:29 Last Admin: 10/14/24 18:24 Dose: 1 each Documented By: MELISSA Miscellaneous (Remove Lidoderm Patch) 1 each N/A DAILY@0730 [facility] Stop: 10/15/24 12:00 Last Admin: 10/15/24 08:31 Dose: 1 each Documented By: BELEM Imaging Data Radiologist's Impression: Abdomen/Pelvis CT 10/14/24 13:[address] WITHOUT CONTRAST; CT LUMBAR SPINE WITHOUT IV CONTRAST HISTORY: Acute low back pain. Chronic kidney disease. CKD, low back pain, UTI TECHNIQUE: Multiaxial CT images of the abdomen, pelvis and lumbar spine were performed without contrast. A dose lowering technique was utilized adhering to the principles of ALARA. COMPARISON STUDY: None. FINDINGS: CT ABDOMEN/PELVIS: Mild dilation of the ascending thoracic aorta, 4.4 cm. Trace pleural effusions with mild subsegmental bibasilar atelectasis/scarring. No pneumatosis or pneumoperitoneum. Benign-appearing calcification of the inferior spleen. Unremarkable pancreas and adrenal glands. Cholelithiasis gallbladder distention without CT evidence of acute cholecystitis. Unremarkable liver. Cortical thinning of the kidneys. 10 mm nonobstructing calcified involving the inferior poles of the kidneys. Exophytic 4.7 cm cyst of the superior pole left kidney. There is still thickening noted within the left renal pelvis with adjacent mild stranding. No ureteral calculi or hydronephrosis. Thickening of the postmenopausal endometrium measures up to 1.4 cm. Fundal calcifications are likely fibroids. The urinary bladder is within normal limits. No adnexal mass lesions. Atherosclerosis of the aorta. Mild distal esophageal wall thickening. No bowel obstruction or bowel wall thickening. No ascites or mesenteric inflammation. No CT evidence of acute appendicitis. Tiny fat filled umbilical hernia. Paravertebral edema is moderate centered around the T11 vertebral body. Subtle acute fractures are noted within the inferior endplate of T11 and superior endplate of T12. No retropulsion or significant vertebral body height loss. No endplate erosions are seen. CT LUMBAR SPINE: Severe intervertebral disc space narrowing at L2-L3 and L3-L4. Moderate to advanced multilevel facet arthrosis. Multilevel spondylitic spurring with posterior disc osteophyte complex relations at L2-L3 and L3-L4. Suboptimal evaluation of the central canal and neural foramen by CT technique. Transitional lumbosacral anatomy. No acute fracture, subluxation or endplate erosion identified. IMPRESSION: 1. Nonobstructing bilateral nephrolithiasis. No ureteral calculi or hydronephrosis. 2. Subtle acute nondisplaced fractures are seen within the inferior endplate of T11 and superior endplate of T12. No retropulsion or significant vertebral body height loss. 3. Mild urothelial thickening with slight prominence of the left renal pelvis, suboptimally evaluated secondary to motion artifact. Correlate with urinalysis. 4. Cholelithiasis without CT evidence of acute cholecystitis. 5. Probable calcified uterine fibroids with nonspecific thickening of the postmenopausal endometrium. 6. Additional findings as above. ACT 112: Negative or not required by law. The above report was generated using voice recognition software. It may contain grammatical, syntax or spelling errors. Electronically signed by: Dio Pan M.D. 10/14/2024 2:[address] 10/14/24 13:[address] WITHOUT CONTRAST; CT LUMBAR SPINE WITHOUT IV CONTRAST HISTORY: Acute low back pain. Chronic kidney disease. CKD, low back pain, UTI TECHNIQUE: Multiaxial CT images of the abdomen, pelvis and lumbar spine were performed without contrast. A dose lowering technique was utilized adhering to the principles of ALARA. COMPARISON STUDY: None. FINDINGS: CT ABDOMEN/PELVIS: Mild dilation of the ascending thoracic aorta, 4.4 cm. Trace pleural effusions with mild subsegmental bibasilar atelectasis/scarring. No pneumatosis or pneumoperitoneum. Benign-appearing calcification of the inferior spleen. Unremarkable pancreas and adrenal glands. Cholelithiasis gallbladder distention without CT evidence of acute cholecystitis. Unremarkable liver. Cortical thinning of the kidneys. 10 mm nonobstructing calcified involving the inferior poles of the kidneys. Exophytic 4.7 cm cyst of the superior pole left kidney. There is still thickening noted within the left renal pelvis with adjacent mild stranding. No ureteral calculi or hydronephrosis. Thickening of the postmenopausal endometrium measures up to 1.4 cm. Fundal calcifications are likely fibroids. The urinary bladder is within normal limits. No adnexal mass lesions. Atherosclerosis of the aorta. Mild distal esophageal wall thickening. No bowel obstruction or bowel wall thickening. No ascites or mesenteric inflammation. No CT evidence of acute appendicitis. Tiny fat filled umbilical hernia. Paravertebral edema is moderate centered around the T11 vertebral body. Subtle acute fractures are noted within the inferior endplate of T11 and superior endplate of T12. No retropulsion or significant vertebral body height loss. No endplate erosions are seen. CT LUMBAR SPINE: Severe intervertebral disc space narrowing at L2-L3 and L3-L4. Moderate to advanced multilevel facet arthrosis. Multilevel spondylitic spurring with posterior disc osteophyte complex relations at L2-L3 and L3-L4. Suboptimal evaluation of the central canal and neural foramen by CT technique. Transitional lumbosacral anatomy. No acute fracture, subluxation or endplate erosion identified. IMPRESSION: 1. Nonobstructing bilateral nephrolithiasis. No ureteral calculi or hydronephrosis. 2. Subtle acute nondisplaced fractures are seen within the inferior endplate of T11 and superior endplate of T12. No retropulsion or significant vertebral body height loss. 3. Mild urothelial thickening with slight prominence of the left renal pelvis, suboptimally evaluated secondary to motion artifact. Correlate with urinalysis. 4. Cholelithiasis without CT evidence of acute cholecystitis. 5. Probable calcified uterine fibroids with nonspecific thickening of the postmenopausal endometrium. 6. Additional findings as above. ACT 112: Negative or not required by law. The above report was generated using voice recognition software. It may contain grammatical, syntax or spelling errors. Electronically signed by: Dio Pan M.D. 10/14/2024 2:42 PM Discharge Plan Visit Data Chief Complaint: Urinary Symptoms Stated Complaint: BACK PAIN, UTI/CONFUSION/DIZZY ED Provider: Christina Saul Discharge Problem: Acute lumbar back pain Patient Disposition: Admitted As Inpatient Condition: Fair Discharge Instructions Interventions: ED Discharge Assessment Last Done: 10/14/24 17:34
[2024-10-14] MEDS: LIDOCAINE 5% 1 PATCH TD STA (19:44)
[2024-10-14] MEDS: HEPARIN SOD 5,000 UNIT/0.5 ML VIAL SQ SCH (21:31)
[2024-10-15 04:56] LABS: Basophils # (auto) 0.03 K/uL (0.00-0.20); Basophils % (auto) 0.3 %; Eosinophils # (auto) 0.08 K/uL (0.00-0.50); Eosinophils % (auto) 0.7 %; Hematocrit (blood only) 37.3 % (37.0-47.0); Hemoglobin 12.2 g/dl (12.0-16.0); Immature Granulocytes # (auto) 0.07 K/uL (0.01-0.20); Immature Granulocytes % (auto) 0.6 %; Lymphocytes # (auto) 1.19 K/uL (1.20-3.40); Lymphocytes % (auto) 10.8 %; Mean Corpuscular Hemoglobin 27.7 pg (25.0-34.0); Mean Corpuscular Hgb Conc 32.7 g/dL (32.0-36.0); Mean Corpuscular Volume 84.8 fL (80.0-100.0); Monocytes % (auto) 7.2 %; Neutrophils # (auto) 8.89 K/uL (1.40-6.50); Neutrophils % (auto) 80.4 %; Platelet Count 330 K/uL (130-400); RDW Coefficient of Variation 14.3 % (11.5-14.5); RDW Standard Deviation 43.8 fL (36.4-46.3); White Blood Count 11.06 K/ul (4.8-10.8)
[2024-10-15 05:11] LABS: BUN Creatinine Ratio 22.1 (10-20); Calcium 9.3 mg/dl (8.6-10.3)
--- NOTE | 2024-10-15 07:33 | Hospitalist Progress Note ---
Date of Service October 15, 2024 Assessment & Plan (1) Back pain: (2) Thoracic spine fracture: (3) Recurrent falls: Plan Patient is an 88 year old female with PMHx significant for HTN, CKD III who presented to the ER with c/o recurrent falls, back pain x several weeks with a cute worsening. Back Pain Thoracic spine fractures Recurrent falls Lumbar spine CT noting thoracic spine fractures Scheduled Tylenol, prn oxycodone and morphine for pain Lidocaine patch Fall precautions PT/OT Eval [facility]ospine consulted, appreciate recs. recommended/stated the following: "At this time I have ordered a TLSO brace. This may provide her some ad ditional comfort as they begin physical therapy and transfers from the bed. It however is not necessary to begin physical therapy." Continue to monitor Possible Sepsis Complicated UTI Pt presenting with leukocytosis, tachycardia, infectious source likely urinary Noted pt has been on steroids recently UA suggestive of infection, urine Cx pending IV Rocephin Follow cultures and adjust abx as needed HTN (hypertension) Stable Continue lisinopril CKD (chronic kidney disease), stage III Cr: 1.0. Baseline Cr: 1.1-1.3 Monitor renal functions, avoid nephrotoxic agents when possible Continue other home meds as ordered Diet: HH DVT Prophylaxis: Heparin SQ Dispo:PT/OT for further recs Admission and Anticipated Discharge Date Admission Date: October 14, 2024 Subjective patient was seen with nursing at bedside Hard of hearing Noted that she had some back pain before breakfast Review of Systems Review of Systems: All systems reviewed & are unremarkable except as noted in Subjective Physical Exam Physical Exam: General: Alert, oriented. Psych: Appropriate mood and affect Neuro: difficulty with movements in the bed HEENT: NC/AT CV: RRR Resp: Breath sounds decreased bilaterally, no increased effort of breathing Abdomen: Soft, nontender Extremities: edema in lower extremities bilaterally. Results & Data Results & Data Vital Signs (Past 12 Hours) Vital Signs Temp Pulse Pulse Resp BP Pulse Ox O2 Del Method 10/15/24 03:36 36.3 C L 72 20 113/76 93 Room Air 10/14/24 23:11 36.6 C 73 18 103/69 94 Room Air 10/14/24 22:15 69 10/14/24 20:30 Room Air Diagnostic Findings Abdomen/Pelvis CT 10/14/24 13:[address] WITHOUT CONTRAST; CT LUMBAR SPINE WITHOUT IV CONTRAST HISTORY: Acute low back pain. Chronic kidney disease. CKD, low back pain, UTI TECHNIQUE: Multiaxial CT images of the abdomen, pelvis and lumbar spine were performed without contrast. A dose lowering technique was utilized adhering to the principles of ALARA. COMPARISON STUDY: None. FINDINGS: CT ABDOMEN/PELVIS: Mild dilation of the ascending thoracic aorta, 4.4 cm. Trace pleural effusions with mild subsegmental bibasilar atelectasis/scarring. No pneumatosis or pneumoperitoneum. Benign-appearing calcification of the inferior spleen. Unremarkable pancreas and adrenal glands. Cholelithiasis gallbladder distention without CT evidence of acute cholecystitis. Unremarkable liver. Cortical thinning of the kidneys. 10 mm nonobstructing calcified involving the inferior poles of the kidneys. Exophytic 4.7 cm cyst of the superior pole left kidney. There is still thickening noted within the left renal pelvis with adjacent mild stranding. No ureteral calculi or hydronephrosis. Thickening of the postmenopausal endometrium measures up to 1.4 cm. Fundal calcifications are likely fibroids. The urinary bladder is within normal limits. No adnexal mass lesions. Atherosclerosis of the aorta. Mild distal esophageal wall thickening. No bowel obstruction or bowel wall thickening. No ascites or mesenteric inflammation. No CT evidence of acute appendicitis. Tiny fat filled umbilical hernia. Paravertebral edema is moderate centered around the T11 vertebral body. Subtle acute fractures are noted within the inferior endplate of T11 and superior endplate of T12. No retropulsion or significant vertebral body height loss. No endplate erosions are seen. CT LUMBAR SPINE: Severe intervertebral disc space narrowing at L2-L3 and L3-L4. Moderate to advanced multilevel facet arthrosis. Multilevel spondylitic spurring with posterior disc osteophyte complex relations at L2-L3 and L3-L4. Suboptimal evaluation of the central canal and neural foramen by CT technique. Transitional lumbosacral anatomy. No acute fracture, subluxation or endplate erosion identified. IMPRESSION: 1. Nonobstructing bilateral nephrolithiasis. No ureteral calculi or hydronephrosis. 2. Subtle acute nondisplaced fractures are seen within the inferior endplate of T11 and superior endplate of T12. No retropulsion or significant vertebral body height loss. 3. Mild urothelial thickening with slight prominence of the left renal pelvis, suboptimally evaluated secondary to motion artifact. Correlate with urinalysis. 4. Cholelithiasis without CT evidence of acute cholecystitis. 5. Probable calcified uterine fibroids with nonspecific thickening of the postmenopausal endometrium. 6. Additional findings as above. ACT 112: Negative or not required by law. The above report was generated using voice recognition software. It may contain grammatical, syntax or spelling errors. Electronically signed by: Dio Pan M.D. 10/14/2024 2:[address] 10/14/24 13:[address] WITHOUT CONTRAST; CT LUMBAR SPINE WITHOUT IV CONTRAST HISTORY: Acute low back pain. Chronic kidney disease. CKD, low back pain, UTI TECHNIQUE: Multiaxial CT images of the abdomen, pelvis and lumbar spine were performed without contrast. A dose lowering technique was utilized adhering to the principles of ALARA. COMPARISON STUDY: None. FINDINGS: CT ABDOMEN/PELVIS: Mild dilation of the ascending thoracic aorta, 4.4 cm. Trace pleural effusions with mild subsegmental bibasilar atelectasis/scarring. No pneumatosis or pneumoperitoneum. Benign-appearing calcification of the inferior spleen. Unremarkable pancreas and adrenal glands. Cholelithiasis gallbladder distention without CT evidence of acute cholecystitis. Unremarkable liver. Cortical thinning of the kidneys. 10 mm nonobstructing calcified involving the inferior poles of the kidneys. Exophytic 4.7 cm cyst of the superior pole left kidney. There is still thickening noted within the left renal pelvis with adjacent mild stranding. No ureteral calculi or hydronephrosis. Thickening of the postmenopausal endometrium measures up to 1.4 cm. Fundal calcifications are likely fibroids. The urinary bladder is within normal limits. No adnexal mass lesions. Atherosclerosis of the aorta. Mild distal esophageal wall thickening. No bowel obstruction or bowel wall thickening. No ascites or mesenteric inflammation. No CT evidence of acute appendicitis. Tiny fat filled umbilical hernia. Paravertebral edema is moderate centered around the T11 vertebral body. Subtle acute fractures are noted within the inferior endplate of T11 and superior endplate of T12. No retropulsion or significant vertebral body height loss. No endplate erosions are seen. CT LUMBAR SPINE: Severe intervertebral disc space narrowing at L2-L3 and L3-L4. Moderate to advanced multilevel facet arthrosis. Multilevel spondylitic spurring with posterior disc osteophyte complex relations at L2-L3 and L3-L4. Suboptimal evaluation of the central canal and neural foramen by CT technique. Transitional lumbosacral anatomy. No acute fracture, subluxation or endplate erosion identified.
[2024-10-15] MEDS: lisinopril 20 MG TAB PO SCH (08:32)
[2024-10-15] MEDS: PANTOprazole 40 MG TAB PO SCH (08:32)
[2024-10-15] MEDS: CHOLECALCIFEROL 25 MCG (1000 UNITS) TAB PO SCH (08:32)
[2024-10-15] MEDS ORDERED: cefTRIAXone SODIUM 1,000 MG/50 ML BAG IV SCH (09:00)
--- NOTE | 2024-10-15 09:20 | Orthopedic Consultation ---
Date of Consultation October 15, 2024 Assessment & Plan (1) Thoracic spine fracture: At this time I have ordered a TLSO brace. This may provide her some additional comfort as they begin physical therapy and transfers from the bed. It however is not necessary to begin physical therapy. History of Present Illness Reason for Consultation: Thoracic compression fractures Attending Physician: Sarah Lopez MD History of Present Illness This is a very pleasant 88-year-old female who presents with evidence of compression fractures T11-T12. This morning she states her pain is relatively well-controlled. She is having difficulty getting out of bed. She denies any numbness or tingling in lower extremities or weakness. Allergies Allergy/AdvReac Type Severity Reaction Status Date / Time No Known Allergies Allergy Verified 08/12/24 08:41 Home Medications Medication Instructions Recorded Confirmed Type cholecalciferol (vitamin D3) 50 50 mcg PO DAILY 11/14/20 10/14/24 History mcg (2,000 unit) capsule lisinopril 20 mg tablet 20 mg PO QAM 01/02/23 10/14/24 History aspirin 81 mg tablet,delayed 81 mg PO DAILY 10/14/24 10/14/24 History release pantoprazole 40 mg tablet,delayed 40 mg PO DAILY 10/14/24 10/14/24 History release Patient History Medical History Hard of hearing Surgical History History of cataract surgery LEFT History of colonoscopy S/P appendectomy HX S/P total knee arthroplasty HX bilateral, Dr Fuentes at [facility] Family History Father Pancreatic cancer Mother Alzheimer disease Sister Non Hodgkin's lymphoma Denies family history of Ovarian cancer Prostate cancer Myocardial infarction Breast cancer Colorectal cancer Social History Smoking Status: Never smoker Second Hand Exposure: No; Do You Dip or Chew Tobacco: No; Hx Alcohol Use: No Hx Substance Use: No Preferred Language: Romansh Communication Ability: Effective Visual Impairment: Limited Hearing Ability: Use of Hearing Aid Application Trainer Required: No Beliefs That Will Affect Care: None marital status: Current Living Situation: Spouse Current Living Situation Comment: Lives in a home with current occupational status: retired Other Information That Helps Us Care for You: No Feels Safe at Home: Yes Childhood Exposure to Second-Hand Smoke: No Diet: regular Diet Comment: Regular caffeine: Yes (little amount) during the past year weight has: remained stable Dental Care, Regularly: Yes Physical Activity Frequency: Does not Exercise Seatbelt Use: always Sunscreen Use: No Assistive Devices: Hospital Bed Physical Exam Physical Exam: Eye exam she is able to sit up without difficulty. There is no significant pain to palpation or percussion of the thoracolumbar spine. Results & Data Vital Signs (Past 12 Hours) Vital Signs Temp Pulse Pulse Resp BP Pulse Ox O2 Del Method 10/15/24 09:10 Room Air 10/15/24 07:50 36.6 C 75 16 118/77 92 Room Air 10/15/24 07:26 68 10/15/24 03:36 36.3 C L 72 20 113/76 93 Room Air 10/14/24 23:11 36.6 C 73 18 103/69 94 Room Air 10/14/24 22:15 69
[2024-10-15] MEDS: oxyCODONE HCL IR 5 MG TAB (IMMEDIATE RELEASE) PO PRN (10:57)
[2024-10-15] MEDS: cefTRIAXone SODIUM 2,000 MG/50 ML BAG IV SCH (16:18)
--- NOTE | 2024-10-15 16:41 | Electrocardiogram Report ---
Test Reason : Blood Pressure : */* mmHG Vent. Rate : 118 BPM Atrial Rate : 118 BPM P-R Int : 188 ms QRS Dur : 80 ms QT Int : 314 ms P-R-T Axes : 15 -57 56 degrees QTcB Int : 440 ms Sinus tachycardia Left axis deviation Minimal voltage criteria for LVH, may be normal variant ( R in aVL ) Anterolateral infarct (cited on or before 20-Jun-2024) Abnormal ECG When compared with ECG of 20-Jun-2024 21:28, Vent. rate has increased by 48 bpm Confirmed by Sanjana Ricks (Joe) on 10/15/2024 4:41:12 PM Referred By: REFERRED SELF Confirmed By: Sanjana Ricks
[2024-10-16 07:02] LABS: Basophils # (auto) 0.05 K/uL (0.00-0.20); Basophils % (auto) 0.4 %; Eosinophils # (auto) 0.15 K/uL (0.00-0.50); Eosinophils % (auto) 1.3 %; Hematocrit (blood only) 38.2 % (37.0-47.0); Hemoglobin 12.4 g/dl (12.0-16.0); Immature Granulocytes # (auto) 0.09 K/uL (0.01-0.20); Immature Granulocytes % (auto) 0.8 %; Lymphocytes # (auto) 1.45 K/uL (1.20-3.40); Lymphocytes % (auto) 12.6 %; Mean Corpuscular Hemoglobin 27.9 pg (25.0-34.0); Mean Corpuscular Hgb Conc 32.5 g/dL (32.0-36.0); Mean Platelet Volume 8.9 fL (9.4-12.4); Monocytes # (auto) 0.99 K/uL (0.11-0.59); Monocytes % (auto) 8.6 %; Neutrophils # (auto) 8.78 K/uL (1.40-6.50); Neutrophils % (auto) 76.3 %; Platelet Count 304 K/uL (130-400); RDW Coefficient of Variation 14.6 % (11.5-14.5); RDW Standard Deviation 45.6 fL (36.4-46.3); Red Blood Count 4.44 M/uL (4.20-5.40); White Blood Count 11.51 K/ul (4.8-10.8)
[2024-10-16 07:21] LABS: BUN Creatinine Ratio 20.9 (10-20); Calcium 9.2 mg/dl (8.6-10.3); Creatinine Clr Calc Pharmacy 37.1 ml/min; Phosphorus 3.5 mg/dl (2.5-4.9); Potassium 4.2 mmol/L (3.5-5.1)
--- NOTE | 2024-10-16 09:57 | Electrocardiogram Report ---
Test Reason : Blood Pressure : */* mmHG Vent. Rate : 70 BPM Atrial Rate : 70 BPM P-R Int : 170 ms QRS Dur : 90 ms QT Int : 404 ms P-R-T Axes : 34 -60 74 degrees QTcB Int : 436 ms Normal sinus rhythm Left axis deviation Left anterior fascicular block Voltage criteria for left ventricular hypertrophy Anterolateral (cited on or before 20-Jun-2024) Abnormal ECG When compared with ECG of 14-Oct-2024 17:10, Vent. rate has decreased by [address] no longer depressed in Lateral leads Confirmed by Sanjana Ricks (Joe) on 10/16/2024 9:56:42 AM Referred By: REFERRED SELF Confirmed By: Sanjana Ricks
--- NOTE | 2024-10-16 14:30 | Hospitalist Progress Note ---
Date of Service October 16, 2024 Assessment & Plan (1) Back pain: (2) Thoracic spine fracture: (3) Recurrent falls: Plan Patient is an 88 year old female with PMHx significant for HTN, CKD III who presented to the ER with c/o recurrent falls, back pain x several weeks with a cute worsening. Back Pain Thoracic spine fractures Recurrent falls Lumbar spine CT noting thoracic spine fractures Scheduled Tylenol, prn oxycodone and morphine for pain Lidocaine patch Fall precautions PT/OT Eval Orthospine consulted, appreciate recs. recommended/stated the following: "At this time I have ordered a TLSO brace. This may provide her some ad ditional comfort as they begin physical therapy and transfers from the bed. It however is not necessary to begin physical therapy." Continue to monitor Possible Sepsis Complicated UTI Pt presenting with leukocytosis, tachycardia, infectious source likely urinary Noted pt has been on steroids recently UA suggestive of infection, urine Cx pending IV Rocephin Follow cultures and adjust abx as needed HTN (hypertension) Stable Continue lisinopril CKD (chronic kidney disease), stage III Cr: 1.0. Baseline Cr: 1.1-1.3 Monitor renal functions, avoid nephrotoxic agents when possible Continue other home meds as ordered Diet: HH DVT Prophylaxis: Heparin SQ Dispo:PT/OT for further recs Admission and Anticipated Discharge Date Admission Date: October 14, 2024 Subjective patient was seen with at bedside States that she feels "crappy" Had brace on and patient and with concerns about how which should be applied Review of Systems Review of Systems: All systems reviewed & are unremarkable except as noted in Subjective Physical Exam 2 Physical Exam: General: Alert, oriented. Brace in place Psych: Appropriate mood and affect Neuro: difficulty with movements in the bed HEENT: NC/AT CV: RRR Resp: Breath sounds decreased bilaterally, no increased effort of breathing Abdomen: Soft, nontender Extremities: edema in lower extremities bilaterally. Results & Data Results & Data Vital Signs (Past 12 Hours) Vital Signs Temp Pulse Resp BP Pulse Ox O2 Del Method 10/16/24 07:01 36.7 C 79 16 122/84 92 Room Air
[2024-10-17 09:11] LABS: Basophils # (auto) 0.04 K/uL (0.00-0.20); Basophils % (auto) 0.4 %; Eosinophils # (auto) 0.16 K/uL (0.00-0.50); Eosinophils % (auto) 1.4 %; Hemoglobin 12.9 g/dl (12.0-16.0); Immature Granulocytes # (auto) 0.09 K/uL (0.01-0.20); Immature Granulocytes % (auto) 0.8 %; Lymphocytes # (auto) 1.34 K/uL (1.20-3.40); Lymphocytes % (auto) 12.1 %; Mean Corpuscular Hemoglobin 27.7 pg (25.0-34.0); Mean Corpuscular Hgb Conc 32.3 g/dL (32.0-36.0); Mean Platelet Volume 9.6 fL (9.4-12.4); Monocytes # (auto) 0.85 K/uL (0.11-0.59); Monocytes % (auto) 7.7 %; Neutrophils % (auto) 77.6 %; Platelet Count 334 K/uL (130-400); RDW Coefficient of Variation 14.4 % (11.5-14.5); Red Blood Count 4.65 M/uL (4.20-5.40); White Blood Count 11.08 K/ul (4.8-10.8)
[2024-10-17 09:28] LABS: BUN Creatinine Ratio 19.4 (10-20); Calcium 9.4 mg/dl (8.6-10.3); Creatinine Clr Calc Pharmacy 39.6 ml/min; Phosphorus 3.3 mg/dl (2.5-4.9); Potassium 3.9 mmol/L (3.5-5.1)
--- NOTE | 2024-10-17 15:05 | Electrocardiogram Report ---
Test Reason : Blood Pressure : */* mmHG Vent. Rate : 73 BPM Atrial Rate : 73 BPM P-R Int : 188 ms QRS Dur : 112 ms QT Int : 398 ms P-R-T Axes : 68 -56 63 degrees QTcB Int : 438 ms Sinus rhythm with Premature supraventricular complexes Left axis deviation Septal infarct , age undetermined Abnormal ECG When compared with ECG of 15-Oct-2024 07:36, Premature supraventricular complexes are now Present Questionable change in QRS duration Septal infarct is now Present Borderline criteria for Lateral infarct are no longer Present Confirmed by Qasim Lubni ([id number]) on 10/17/2024 3:05:18 PM Referred By: REFERRED SELF Confirmed By: Qasim Lubin
--- NOTE | 2024-10-17 16:37 | Hospitalist Progress Note ---
Date of Service October 17, 2024 Assessment & Plan (1) Back pain: (2) Thoracic spine fracture: (3) Recurrent falls: Plan Patient is an 88 year old female with PMHx significant for HTN, CKD III who presented to the ER with c/o recurrent falls, back pain x several weeks with a cute worsening. Back Pain Thoracic spine fractures Recurrent falls Lumbar spine CT noting thoracic spine fractures Scheduled Tylenol, prn oxycodone and morphine for pain Lidocaine patch Fall precautions PT/OT Eval Orthospine consulted, appreciate recs. recommended/stated the following: "At this time I have ordered a TLSO brace. This may provide her some ad ditional comfort as they begin physical therapy and transfers from the bed. It however is not necessary to begin physical therapy." Continue to monitor Possible Sepsis Complicated UTI Pt presenting with leukocytosis, tachycardia, infectious source likely urinary Noted pt has been on steroids recently UA suggestive of infection, urine Cx pending IV Rocephin Follow cultures and adjust abx as needed HTN (hypertension) Stable Continue lisinopril CKD (chronic kidney disease), stage III Cr: 1.0. Baseline Cr: 1.1-1.3 Monitor renal functions, avoid nephrotoxic agents when possible Continue other home meds as ordered Diet: HH DVT Prophylaxis: Heparin SQ Dispo:PT/OT recommending rehab Admission and Anticipated Discharge Date Admission Date: October 14, 2024 Subjective patient was seen sitting up in bed otherwise denying acute concerns Review of Systems Review of Systems: All systems reviewed & are unremarkable except as noted in Subjective Physical Exam Physical Exam: General: Alert, oriented. Brace in place Psych: Appropriate mood and affect Neuro: difficulty with movements in the bed HEENT: NC/AT CV: RRR Resp: Breath sounds decreased bilaterally, no increased effort of breathing Abdomen: Soft, nontender Extremities: edema in lower extremities bilaterally. Results & Data Results & Data Vital Signs (Past 12 Hours) Vital Signs Temp Pulse Resp BP Pulse Ox O2 Del Method 10/17/24 16:07 36.4 C L 91 H 16 131/85 95 Room Air 10/17/24 07:21 36.5 C 69 18 121/78 94 Room Air
[2024-10-18 07:11] LABS: Basophils # (auto) 0.04 K/uL (0.00-0.20); Basophils % (auto) 0.4 %; Eosinophils # (auto) 0.13 K/uL (0.00-0.50); Eosinophils % (auto) 1.3 %; Hematocrit (blood only) 37.6 % (37.0-47.0); Hemoglobin 12.3 g/dl (12.0-16.0); Immature Granulocytes # (auto) 0.07 K/uL (0.01-0.20); Immature Granulocytes % (auto) 0.7 %; Lymphocytes # (auto) 1.52 K/uL (1.20-3.40); Lymphocytes % (auto) 14.7 %; Mean Corpuscular Hemoglobin 28.1 pg (25.0-34.0); Mean Corpuscular Hgb Conc 32.7 g/dL (32.0-36.0); Mean Corpuscular Volume 85.8 fL (80.0-100.0); Mean Platelet Volume 9.6 fL (9.4-12.4); Monocytes # (auto) 0.94 K/uL (0.11-0.59); Monocytes % (auto) 9.1 %; Neutrophils # (auto) 7.62 K/uL (1.40-6.50); Neutrophils % (auto) 73.8 %; Platelet Count 305 K/uL (130-400); RDW Coefficient of Variation 14.4 % (11.5-14.5); RDW Standard Deviation 45.1 fL (36.4-46.3); Red Blood Count 4.38 M/uL (4.20-5.40); White Blood Count 10.32 K/ul (4.8-10.8)
[2024-10-18 07:18] LABS: BUN Creatinine Ratio 16.5 (10-20); Calcium 9.4 mg/dl (8.6-10.3); Creatinine Clr Calc Pharmacy 39.6 ml/min; Magnesium 1.9 mg/dl (1.7-2.4); Phosphorus 3.4 mg/dl (2.5-4.9); Potassium 4.1 mmol/L (3.5-5.1)
[2024-10-18 07:23] VITALS: BP 108/67; PULSE 66; RESP 18; TEMP 97.7; O2SAT 92
[2024-10-18] MEDS: MoRPHine SULFATE 2 MG/ML CARP IV PRN (08:08)
[2024-10-18] MEDS: CEFDINIR 300 MG CAP PO SCH (10:28)
--- NOTE | 2024-10-18 12:42 | Discharge Summary ---
Discharge Summary Date of Service October 18, 2024 Principal Dx & Hospital Course #1 = Principal Diagnosis (1) Back pain: (2) Thoracic spine fracture: (3) Recurrent falls: Plan Patient is an 88 year old female with PMHx significant for HTN, CKD III who presented to the ER with c/o recurrent falls, back pain x several weeks with acute worsening. Back Pain Thoracic spine fractures Recurrent falls Lumbar spine CT noting thoracic spine fractures Scheduled Tylenol, prn oxycodone and morphine for pain Lidocaine patch Fall precautions PT/OT Eval- recommended acute rehab [facility] consulted, appreciate recs. recommended/stated the following: "At this time I have ordered a TLSO brace. This may provide her some additional comfort as they begin physical therapy and transfers from the bed..." Pt discharged to acute rehab at [facility] Possible Sepsis Complicated UTI Pt presenting with leukocytosis, tachycardia, infectious source likely urinary Noted pt has been on steroids recently UA suggestive of infection, urine Cx grew pansensitive E coli Given IV Rocephin and transitioned to po cefdinir to complete 10 days of treatment. PCP followup HTN (hypertension) Stable Continue lisinopril CKD (chronic kidney disease), stage III Cr: 1.0. Baseline Cr: 1.1-1.3 Monitor renal functions, avoid nephrotoxic agents when possible Continue other home meds as ordered Notes For Next Care Provider [facility] recommending use of TLSO Brace Medication Changes From Visit cefdinir 300mg BID x 6 and a half more days Admission HPI Per Admitting Provider Patient is 88 year old female with PMH HTN, CKD III presented to ER with c/o recurrent falls, back pain x several weeks with acute worsening today. Per inpatient chart review history [facility] hospitalization 06/21/24-06/23/24 for fall with distal tibia fracture and proximal tibia fracture s/p ORIF by Dr Carrasquillo and was discharged to [facility] and ultimately discharged home. She was also treated for E coli UTI and completed antibiotic coarse. She since has been ambulating with use of walker. Family report since 06/2024 has noted progressive decline in ambulatory status. States she has recurrent falls, and falls at least twice a week. Patient states approximately 2-3 weeks ago she slipped off the portable toilet and fell onto buttocks and hit her head. Denies LOC, WILSON, dizziness. States she has also fallen twice this week. C/O low back pain past several weeks but seems worse today. Seen PCP office 10/08/24 for back pain and was given Medrol dosepak and recommended to stop aspirin and start Voltaren gel and PT was recommended. Reports chronic urinary incontinence and sometimes fecal incontinence as seems like she can't get to bathroom quick enough with her amb ulatory dysfunction. Daughter states she has needed to change her a couple of times secondary to being fecal and urine soiled. States past couple days seems more generalized weakness and since yesterday having trouble ambulating secondary to reported bilateral leg weakness. Denies extremity paresthesias. Daughter is concerned for UTI and in past had weakness with UTI's. Reports for months has had some intermittent vomiting. Was placed on Protonix. Denies any vomiting today. Patient denies abdominal pain, diarrhea, constipation. Family denies any worsening confusion. States patient at her baseline mental status. Reports she often is forgetful and often unsure of date. Denies fever/chills, diaphoresis, WILSON, dizziness, syncope, vision changes, neck pain, CP, SOB, palpitations, cough, sore throat, rhinorrhea, abdominal pain, paresthesias, extremity edema, rashes, dysuria, hematuria. Admission Exam Per Admitting Provider General: no acute distress, WDWN Head: normocephalic, atraumatic Eyes: PERRL, EOM's intact, conjunctiva non-injected, anicteric ENT: normal inspection external ears, nose, mucous membranes moist Neck: supple, trachea midline, non-tender Lungs: clear, no respiratory distress, no wheezing/rhonchi/rales CV: RRR, no pretibial edema Abd: normal BS, soft, non-tender, no CVA tenderness to palpation Back: no ecchymosis. No current tenderness to palpation of back Ext: no cyanosis, no calf tenderness, bilateral pedal pushes and pulls intact, sensation to light touch intact Neuro: Alert, oriented to person, place, month and year, unsure of day. no focal deficits noted, normal affect Skin: warm, dry Discharge Exam General: Alert, oriented. Brace in place Psych: Appropriate mood and affect Neuro: difficulty with movements in the bed HEENT: NC/AT CV: RRR Resp: Breath sounds decreased bilaterally, no increased effort of breathing Abdomen: Soft, nontender Extremities: edema in lower extremities bilaterally. Updated Medication List Medication Instructions Recorded Confirmed Type cholecalciferol (vitamin D3) 50 50 mcg PO DAILY 11/14/20 10/14/24 History mcg (2,000 unit) capsule lisinopril 20 mg tablet 20 mg PO QAM 01/02/23 10/14/24 History aspirin 81 mg tablet,delayed 81 mg PO DAILY 10/14/24 10/14/24 History release pantoprazole 40 mg tablet,delayed 40 mg PO DAILY 10/14/24 10/14/24 History release cefdinir 300 mg capsule 300 mg PO BID #13 caps 10/18/24 Rx Hospital Stay Data Consultations 10/14/24 15:55 ED Decision to Admit Stat 10/14/24 18:22 Consult Orthopedic Spine Surgery Routine Diagnostic Imagining Performed 10/14/24 13:53 CT abd pelvis wo con Stat 10/14/24 13:54 CT lumbar spine wo con Stat Abdomen/Pelvis CT 10/14/24 13:[address] WITHOUT CONTRAST; CT LUMBAR SPINE WITHOUT IV CONTRAST HISTORY: Acute low back pain. Chronic kidney disease. CKD, low back pain, UTI TECHNIQUE: Multiaxial CT images of the abdomen, pelvis and lumbar spine were performed without contrast. A dose lowering technique was utilized adhering to the principles of ALARA. COMPARISON STUDY: None. FINDINGS: CT ABDOMEN/PELVIS: Mild dilation of the ascending thoracic aorta, 4.4 cm. Trace pleural effusions with mild subsegmental bibasilar atelectasis/scarring. No pneumatosis or pneumoperitoneum. Benign-appearing calcification of the inferior spleen. Unremarkable pancreas and adrenal glands. Cholelithiasis gallbladder distention without CT evidence of acute cholecystitis. Unremarkable liver. Cortical thinning of the kidneys. 10 mm nonobstructing calcified involving the inferior poles of the kidneys. Exophytic 4.7 cm cyst of the superior pole left kidney. There is still thickening noted within the left renal pelvis with adjacent mild stranding. No ureteral calculi or hydronephrosis. Thickening of the postmenopausal endometrium measures up to 1.4 cm. Fundal calcifications are likely fibroids. The urinary bladder is within normal limits. No adnexal mass lesions. Atherosclerosis of the aorta. Mild distal esophageal wall thickening. No bowel obstruction or bowel wall thickening. No ascites or mesenteric inflammation. No CT evidence of acute appendicitis. Tiny fat filled umbilical hernia. Paravertebral edema is moderate centered around the T11 vertebral body. Subtle acute fractures are noted within the inferior endplate of T11 and superior endplate of T12. No retropulsion or significant vertebral body height loss. No endplate erosions are seen. CT LUMBAR SPINE: Severe intervertebral disc space narrowing at L2-L3 and L3-L4. Moderate to advanced multilevel facet arthrosis. Multilevel spondylitic spurring with posterior disc osteophyte complex relations at L2-L3 and L3-L4. Suboptimal evaluation of the central canal and neural foramen by CT technique. Transitional lumbosacral anatomy. No acute fracture, subluxation or endplate erosion identified. IMPRESSION: 1. Nonobstructing bilateral nephrolithiasis. No ureteral calculi or hydronephrosis. 2. Subtle acute nondisplaced fractures are seen within the inferior endplate of T11 and superior endplate of T12. No retropulsion or significant vertebral body height loss. 3. Mild urothelial thickening with slight prominence of the left renal pelvis, suboptimally evaluated secondary to motion artifact. Correlate with urinalysis. 4. Cholelithiasis without CT evidence of acute cholecystitis. 5. Probable calcified uterine fibroids with nonspecific thickening of the postmenopausal endometrium. 6. Additional findings as above. ACT 112: Negative or not required by law. The above report was generated using voice recognition software. It may contain grammatical, syntax or spelling errors. Electronically signed by: Dio Pan M.D. 10/14/2024 2:[address] 10/14/24 13:[address] WITHOUT CONTRAST; CT LUMBAR SPINE WITHOUT IV CONTRAST HISTORY: Acute low back pain. Chronic kidney disease. CKD, low back pain, UTI TECHNIQUE: Multiaxial CT images of the abdomen, pelvis and lumbar spine were performed without contrast. A dose lowering technique was utilized adhering to the principles of ALARA. COMPARISON STUDY: None. FINDINGS: CT ABDOMEN/PELVIS: Mild dilation of the ascending thoracic aorta, 4.4 cm. Trace pleural effusions with mild subsegmental bibasilar atelectasis/scarring. No pneumatosis or pneumoperitoneum. Benign-appearing calcification of the inferior spleen. Unremarkable pancreas and adrenal glands. Cholelithiasis gallbladder distention without CT evidence of acute cholecystitis. Unremarkable liver. Cortical thinning of the kidneys. 10 mm nonobstructing calcified involving the inferior poles of the kidneys. Exophytic 4.7 cm cyst of the superior pole left kidney. There is still thickening noted within the left renal pelvis with adjacent mild stranding. No ureteral calculi or hydronephrosis. Thickening of the postmenopausal endometrium measures up to 1.4 cm. Fundal calcifications are likely fibroids. The urinary bladder is within normal limits. No adnexal mass lesions. Atherosclerosis of the aorta. Mild distal esophageal wall thickening. No bowel obstruction or bowel wall thickening. No ascites or mesenteric inflammation. No CT evidence of acute appendicitis. Tiny fat filled umbilical hernia. Paravertebral edema is moderate centered around the T11 vertebral body. Subtle acute fractures are noted within the inferior endplate of T11 and superior endplate of T12. No retropulsion or significant vertebral body height loss. No endplate erosions are seen. CT LUMBAR SPINE: Severe intervertebral disc space narrowing at L2-L3 and L3-L4. Moderate to advanced multilevel facet arthrosis. Multilevel spondylitic spurring with posterior disc osteophyte complex relations at L2-L3 and L3-L4. Suboptimal evaluation of the central canal and neural foramen by CT technique. Transitional lumbosacral anatomy. No acute fracture, subluxation or endplate erosion identified. IMPRESSION: 1. Nonobstructing bilateral nephrolithiasis. No ureteral calculi or hydronephrosis. 2. Subtle acute nondisplaced fractures are seen within the inferior endplate of T11 and superior endplate of T12. No retropulsion or significant vertebral body height loss. 3. Mild urothelial thickening with slight prominence of the left renal pelvis, suboptimally evaluated secondary to motion artifact. Correlate with urinalysis. 4. Cholelithiasis without CT evidence of acute cholecystitis. 5. Probable calcified uterine fibroids with nonspecific thickening of the postmenopausal endometrium. 6. Additional findings as above. ACT 112: Negative or not required by law. The above report was generated using voice recognition software. It may contain grammatical, syntax or spelling errors. Electronically signed by: Dio Pan M.D. 10/14/2024 2:42 PM Pending Results Patient Have Any Pending Studies at Discharge: No Discharge Instructions Given to Patient (Per Discharging Provider) Adri, You were admitted and treated for a urinary tract infection as well as back pain. Continue with 6-1/2 more days of antibiotic treatment for the urinary tract infection You are seen by orthopedic surgeon who recommends that you continue with the brace. Please keep close follow-up after discharge. Please keep close follow up with your primary care provider after discharge. Please do not hesitate to come back to the emergency room if your symptoms worsen or return. It was a pleasure taking care of you while you were here. Total Time Total Time Spent Total Time Spent (In Minutes): 65
== END 2024-10-18 13:26 | DRG 551 ==
LOC: ED 11:50 → 2W 17:10 → SUATTDRO 17:10 → 2W 17:34 → 3E 10-15 14:55

== ENCOUNTER 2024-10-29 12:08 | Inpatient (IN) ==
--- NOTE | 2024-10-29 12:11 | Emergency Department Note ---
Impression & Plan Hyponatremia, Intractable back pain, Thoracic spine fracture ED Provider Note NAME: MARCIA RUSSELL AGE: 88 SEX: F : 1935 ARRIVES VIA: Ambulance INFORMANT: Patient, family ED PROVIDER(S): Chris Stokes MD CHIEF COMPLAINT: Back pain decreased range of motion bilateral lower extremity secondary to pain. MEDICAL DECISION MAKING: Patient presents due to concern for acute on chronic back pain. IV was established and blood work was obtained. The patient did receive Tylenol steroids as well as lidocaine patch. Upon subsequent reassessment the patient does not feel as though she had significantly improved. The patient's blood work shows a normal white count H&H and platelet count. Hyponatremia noted at 129. Creatinine normal. BioFire negative. Chest x-ray without obvious pneumonia. The patient's CT of the thoracic spine does show acute fracture inferior aspect of T11 superior and plate T12 with associated hematoma. 4 mm retropulsion. Patient is able to move both legs but does have restriction secondary to pain. The patient denies any numbness saddle anesthesia or bowel or bladder incontinence. I did speak with the on-call orthospine specialist Dr. Orozco recommended the patient does wear the TLSO brace pain management and may be seen as an outpatient but no acute surgical indication at this time based on CT and exam findings. I did speak with the patient's family. This patient was still having pain the patient was ordered IV morphine 2 mg. They would for not to go back [facility] and given these concerns I did speak the on-call hospital service Ramses Carrasquillo PA-C and the patient was admitted by Dr. Gutierrez. Discussion w/ other healthcare providers: Dr. Orozco orthopedic spine Ángela Carrasquillo PA-C and Dr. Gutierrez inpatient medicine service Prior /Outside records reviewed: None Differential diagnosis: Musculoskeletal, disc herniation, fracture, sprain, strain, cord compression, discitis, sciatica, cauda equina, infection, renal colic, as well as other pathologies were considered. Diagnostics, as interpreted by me: ECG: None Cardiac monitoring: An order was placed for continuous cardiac monitoring. The monitor shows a rate of 65 with sinus rhythm. Patient was placed on pulse oximetry Medical decision rules: None Imaging studies: I informally interpreted the patient's chest x-ray does not show obvious pneumonia or pneumothorax with formal report to follow. HPI: Patient presents due to concern for worsening back pain. Patient was admitted over an years due to concern for T11-T12 fractures. Patient reportedly did receive oxycodone last night desatted to 83%. The patient was given additional oxycodone this morning. The patient still had pain and thus family referred them here for further evaluation and treatment. Patient does report that she does have mid back pain. No reported falls or trauma. Patient denies any chest pains or shortness of breath. Patient denies any issues with defecation or urination or bowel bladder incontinence or retention. No saddle anesthesia. Patient denies any leg weakness. PAST MEDICAL HISTORY: See Below PAST SURGICAL HISTORY: See Below SOCIAL HISTORY: See Below HOME MEDICATIONS: See Below ALLERGIES: See Below VITALS: See Below PHYSICAL EXAMINATION: GENERAL: NAD, non-toxic. EYE EXAM: Normal conjunctiva. PERRL, no anisocoria and EOM's grossly intact w/o pain. OROPHARYNX: Moist mucus membranes, grossly normal dentition. NECK: Trachea midline, no stridor. Supple, no nuchal rigidity, no adenopathy, non-tender. No signs of meningismus. FROM of the neck with good chin to chest and neck extension. LUNGS: Slight wheeze noted in the right lower chest. Normal chest wall mechanics. HEART: NSR, no MRG. ABDOMEN: Abdomen soft, non-tender, no masses, no rebound or guarding. BACK: No CVA TTP. Midline lower thoracic TTP. SKIN: No rashes and no bruising. UPPER EXTREMITIES: Upper extremities are grossly normal. LOWER EXTREMITIES: Grossly normal, no edema. No saddle anesthesia. Able to flex and extend at the ankle without issue. NEURO EXAM: A&O x3, cranial nerves II-XII grossly intact, normal speech, moves all 4 extremities. Past Med/Surg History Problem List (Updated 10/30/24 @ 08:00 by Chris Stokes MD) Intractable back pain (Acute) Hyponatremia (Acute) Ambulatory dysfunction Thoracic spine fracture (Acute) Recurrent falls Spiral fracture of shaft of tibia (Acute) Fall from standing (Acute) Elevated troponin (Acute) Leukocytosis (Acute) Acute UTI (Acute) MIRTHA (acute kidney injury) (Acute) HTN (hypertension) Elevated troponin UTI (urinary tract infection) Fall Weakness CKD (chronic kidney disease), stage III Low back pain (Chronic) Numbness and tingling in right hand (Chronic) Dyspnea on exertion (Chronic) Weakness of right foot (Acute) TIA (transient ischemic attack) (Acute) Dyslipidemia Impaired fasting glucose HbA1c of 6.1 % July 2014 Encounter for health maintenance examination in adult Medicare annual wellness visit, subsequent Preop exam for internal medicine Cataract Encounter for pre-operative examination Medical History Hard of hearing Surgical History History of cataract surgery LEFT History of colonoscopy S/P appendectomy HX S/P total knee arthroplasty HX bilateral, Dr Fuentes at [facility] [place] Family History Father Pancreatic cancer Mother Alzheimer disease Sister Non Hodgkin's lymphoma Denies family history of Ovarian cancer Prostate cancer Myocardial infarction Breast cancer Colorectal cancer Social History Smoking Status: Never smoker Second Hand Exposure: No; Do You Dip or Chew Tobacco: No; Hx Alcohol Use: No Hx Substance Use: No Preferred Language: Kyrgyz Communication Ability: Effective Visual Impairment: Limited Hearing Ability: Use of Hearing Aid Telegraphic Typewriter Operator Required: No Beliefs That Will Affect Care: None marital status: Current Living Situation: [facility] Current Living Situation Comment: Lives in a home with current occupational status: retired Other Information That Helps Us Care for You: No Feels Safe at Home: Yes Childhood Exposure to Second-Hand Smoke: No Diet: regular Diet Comment: Regular caffeine: Yes (little amount) during the past year weight has: remained stable Dental Care, Regularly: Yes Physical Activity Frequency: Does not Exercise Seatbelt Use: always Sunscreen Use: No Assistive Devices: Raised Toilet Seat and Walker Allergies Allergies Allergy/AdvReac Type Severity Reaction Status Date / Time No Known Allergies Allergy Verified 08/12/24 08:41 Home Meds Home Medications Medication Instructions Recorded Confirmed acetaminophen 500 mg tablet 1,000 mg PO Q8H 10/29/24 10/29/24 cholecalciferol (vitamin D3) 50 50 mcg PO DAILY 10/29/24 10/29/24 mcg (2,000 unit) tablet docusate sodium 100 mg capsule 100 mg PO BID 10/29/24 10/29/24 heparin (porcine) 5,000 unit/mL 5,000 unit subcut Q12H 10/29/24 10/29/24 injection solution lidocaine 4 % topical patch 1 patch topical DAILY 10/29/24 10/29/24 lisinopril 20 mg tablet 20 mg PO DAILY 10/29/24 10/29/24 ondansetron 4 mg disintegrating 4 mg PO Q6H PRN Nausea And Vomiting 10/29/24 10/29/24 tablet pantoprazole 40 mg tablet,delayed 40 mg PO DAILY 10/29/24 10/29/24 release Results & Data (ED) Vital Signs Vital Signs - 24 hr 10/29/24 12:15 10/29/24 12:20 10/29/24 12:20 Temperature 36.7 C 36.7 C Temperature Source Oral Oral Pulse Rate 66 69 Pulse Rate [Apical] 69 Pulse Rate from SpO2 Sensor 68 Respiratory Rate 17 17 17 Blood Pressure 143/81 H 143/81 H Blood Pressure [Right Arm] 143/81 H Blood Pressure Mean 101 101 Blood Pressure Mean [Right Arm] 101 Pulse Oximetry 94 90 90 Oxygen Delivery Method Room Air Room Air Room Air Sepsis Recent Fever Within 48 Hours No Sepsis New/Unexplained Change in Mental Status N/A Sepsis Action Taken by Nursing No Action Required 10/29/24 12:29 10/29/24 13:00 10/29/24 14:00 Temperature Temperature Source Pulse Rate 69 72 67 Pulse Rate [Apical] Pulse Rate from SpO2 Sensor 67 Respiratory Rate 17 18 19 Blood Pressure 139/86 136/83 Blood Pressure [Right Arm] Blood Pressure Mean 103 100 Blood Pressure Mean [Right Arm] Pulse Oximetry 90 94 98 Oxygen Delivery Method Room Air Room Air Room Air Sepsis Recent Fever Within 48 Hours Sepsis New/Unexplained Change in Mental Status Sepsis Action Taken by Nursing 10/29/24 14:30 10/29/24 14:52 10/29/24 15:06 Temperature Temperature Source Pulse Rate 70 70 Pulse Rate [Apical] 72 Pulse Rate from SpO2 Sensor 71 69 Respiratory Rate 21 20 19 Blood Pressure 147/82 H 131/75 Blood Pressure [Right Arm] 147/82 H Blood Pressure Mean 110 93 Blood Pressure Mean [Right Arm] 103 Pulse Oximetry 95 95 95 Oxygen Delivery Method Room Air Room Air Room Air Sepsis Recent Fever Within 48 Hours Sepsis New/Unexplained Change in Mental Status Sepsis Action Taken by Nursing 10/29/24 15:30 Temperature Temperature Source Pulse Rate 69 Pulse Rate [Apical] Pulse Rate from SpO2 Sensor 69 Respiratory Rate 17 Blood Pressure 138/78 Blood Pressure [Right Arm] Blood Pressure Mean 116 Blood Pressure Mean [Right Arm] Pulse Oximetry 96 Oxygen Delivery Method Room Air Sepsis Recent Fever Within 48 Hours Sepsis New/Unexplained Change in Mental Status Sepsis Action Taken by [facility] Medications Current Medication List: was personally reviewed by me Laboratory Data Attestation: I reviewed the patient's lab results. 10/30/24 06:13 10/30/24 06:13 Lab Results 10/29/24 Range/Units 12:20 WBC 8.81 (4.8-10.8) K/ul RBC 4.48 (4.20-5.40) M/uL Hgb 12.7 (12.0-16.0) g/dl Hct 38.2 (37.0-47.0) % MCV 85.3 (80.0-100.0) fL MCH 28.3 (25.0-34.0) pg MCHC 33.2 (32.0-36.0) g/dL RDW Std Deviation 46.6 H (36.4-46.3) fL RDW Coeff of Chris 15.0 H (11.5-14.5) % Plt Count 364 (130-400) K/uL MPV 8.6 L (9.4-12.4) fL Immature Gran % (Auto) 0.6 % Neut % (Auto) 80.1 % Lymph % (Auto) 9.5 % [place] % (Auto) 9.0 % Eos % (Auto) 0.5 % Baso % (Auto) 0.3 % Neut # (Auto) 7.06 H (1.40-6.50) K/uL Lymph # (Auto) 0.84 L (1.20-3.40) K/uL [place] # (Auto) 0.79 H (0.11-0.59) K/uL Eos # (Auto) 0.04 (0.00-0.50) K/uL Baso # (Auto) 0.03 (0.00-0.20) K/uL Immature Gran # (Auto) 0.05 (0.01-0.20) K/uL Sodium 129 L (136-145) mmol/L Potassium 4.3 (3.5-5.1) mmol/L Chloride 92 L (98-107) mmol/L Carbon Dioxide 29 (21-32) mmol/L Anion Gap 8 (3-11) BUN 17 (6-23) mg/dl Creatinine 1.19 (0.6-1.2) mg/dl Est Cr Clr Drug Dosing 34.2 ml/min eGFR 43.71 BUN/Creatinine Ratio 14.3 (10-20) Glucose 118 H (70-99(Fasting)) mg/dl Osmolality 274 L (280-300) mOsm/kg Calcium 10.0 (8.6-10.3) mg/dl Adenovirus (PCR) Not Detected (NotDetected) B. pertussis DNA (PCR) Not Detected (NotDetected) B.parapertussis DNA PCR Not Detected (NotDetected) C. pneumoniae DNA (PCR) Not Detected (NotDetected) Coronavirus OC43 (PCR) Not Detected (NotDetected) Coronavirus HKU1 (PCR) Not Detected (NotDetected) Coronavirus 229E (PCR) Not Detected (NotDetected) SARS-CoV-2 (PCR) Not Detected (NotDetected) Coronavirus NL63 (PCR) Not Detected (NotDetected) Human Metapneumovir PCR Not Detected (NotDetected) Influenza Type A (PCR) Not Detected (NotDetected) Influenza Type B (PCR) Not Detected (NotDetected) M. pneumoniae (PCR) Not Detected (NotDetected) Parainfluenza 1 (PCR) Not Detected (NotDetected) Parainfluenza 2 (PCR) Not Detected (NotDetected) Parainfluenza 3 (PCR) Not Detected (NotDetected) Parainfluenza 4 (PCR) Not Detected (NotDetected) RSV (PCR) Not Detected (NotDetected) Entero/Rhino (PCR) Not Detected (NotDetected) Administered Medications Acetaminophen (Acetaminophen 500 Mg Tab) 1,000 mg PO Q8H [facility] Stop: 11/28/24 21:59 Last Admin: 10/30/24 05:49 Dose: 1,000 mg Documented By: Admin: 10/29/24 23:21 Dose: Not Given Documented By: SARA Docusate Sodium (Docusate Sodium 100 Mg Cap) 100 mg PO BID [facility] Stop: 11/28/24 20:59 Last Admin: 10/29/24 21:02 Dose: Not Given Documented By: SARA Miscellaneous (Remove Lidoderm Patch) 1 each N/A DAILY@2100 [facility] Stop: 11/28/24 20:59 Last Admin: 10/29/24 21:02 Dose: Not Given Documented By: SARA Tramadol HCl (Tramadol Hcl 50 Mg Tablet) 25 mg PO Q4H PRN PRN Reason: Moderate Pain (Scale 4, 5, 6) Stop: 11/28/24 16:27 Last Admin: 10/30/24 00:50 Dose: 25 mg Documented By: SARA Discontinued Medications Acetaminophen (Acetaminophen 500 Mg Tab) 1,000 mg PO NOW STA Stop: 10/29/24 12:20 Last Admin: 10/29/24 12:57 Dose: 1,000 mg Documented By: BARRY Sodium Chloride (Nss) 500 mls @ 80 mls/hr IV .Q6H15M [facility] Stop: 10/29/24 23:29 Last Infusion: 10/30/24 04:34 Dose: Infused Documented By: Admin: 10/29/24 21:26 Dose: 80 mls/hr Documented By: SARA Lidocaine (Lidocaine 5% 1 Patch) 1 patch TD NOW STA Stop: 10/29/24 12:20 Last Admin: 10/29/24 12:57 Dose: 1 patch Documented By: BARRY Methylprednisolone (Methylprednisolone 125 Mg/2 Ml Vial) 125 mg IV NOW STA Stop: 10/29/24 12:20 Last Admin: 10/29/24 12:58 Dose: 125 mg Documented By: BARRY Morphine Sulfate (Morphine Sulfate 2 Mg/Ml Carp) 2 mg IV NOW STA Stop: 10/29/24 14:07 Last Admin: 10/29/24 14:56 Dose: 2 mg Documented By: CRYSTAL Imaging Data Radiologist's Impression: Thoracic Spine CT 10/29/24 12:19 CT thoracic spine wo con CLINICAL HISTORY: reeval back frx's, pain TECHNIQUE: Multidetector row helical CT of the thoracic spine was performed without administration of intravenous contrast. Coronal and sagittal reformations were obtained. Automated dose lowering techniques and/or adjustment according to patient size were utilized for this exam. CT DOSE: 1280.45 mGy.cm Comparison: Comparison is made to CT lumbar spine 10/14/2024 FINDINGS: There is an acute fracture of the inferior endplate of T11 and superior endplate of T12 with surrounding hematoma. There is approximately 4 mm retropulsion. Degenerative changes are noted in the visualized spine. Vertebral body alignment is within normal limits. Atelectasis is seen in the left greater the right lung base. IMPRESSION: Acute fracture of the inferior aspect of T11 and the superior endplate of T12 with associated hematoma. There is approximately 4 mm retropulsion. ACT 112: Negative or not required by law. Electronically signed by: Curtis Elliott M.D. 10/29/2024 1:18 PM Chest X-Ray 10/29/24 12:28 XR chest 1V portable CLINICAL HISTORY: wheeze R lower chest TECHNIQUE: Single frontal radiograph of the chest was obtained. Comparison: Comparison is made to chest radiograph 06/20/2024 FINDINGS: No lines and tubes are seen. Cardiomegaly is noted. The lungs are clear. No evidence of pleural effusion or pneumothorax. IMPRESSION: No acute abnormalities and in particular no radiographic evidence of pneumonia. ACT 112: Negative or not required by law. Electronically signed by: Curtis Elliott M.D. 10/29/2024 1:12 PM Discharge Plan Visit Data Chief Complaint: Back Injury/Pain ED Provider: Chris Stokes Discharge Problem: Hyponatremia, Intractable back pain, Thoracic spine fracture Patient Disposition: Admitted As Inpatient Discharge Instructions Interventions: ED Discharge Assessment Last Done: 10/29/24 18:45 Discharge Problem: Thoracic spine fracture Qualifiers: Encounter type: initial encounter Thoracic vertebra fracture level: T11 F racture type: closed Fracture morphology: unspecified fracture morphology Q ualified Code(s): S22.089A - Unspecified fracture of T11-T12 vertebra, initial encounter for closed fracture
--- OUTSIDE RECORDS SUMMARY | 2024-10-29 12:14 | External Medical Summary ---
Author Name Unknown Address Unknown Organization [id number]:LABORATORY [facility] [address] [place] [address] Laboratory Report Ordering Provider Test Date Status CHRIS COTO 10/19/2024 05:25:33 Final Observation Date Value Abnormality Reference (Units ) Status BUN 10/19/2024 05:25:33 28 Above high normal 6-20 (mg/dL) Final Creatinine 10/19/2024 05:25:33 1.3 Above high normal 0.5-1.0 (mg/dL) Final Glomerular filtration rate/1.73 sq M.predicted [Volume Rate/Area] in Serum, Plasma or Blood by Creatinine-based formula (CKD-EPI) 10/19/2024 05:25:33 40 Below low normal >=60 (mL/min) Final eGFR is calculated based on the CKD-EPI 2020 equation. Sodium 10/19/2024 05:25:33 134 Below low normal 135 -146 (mmol/L) Final Potassium 10/19/2024 05:25:33 5.0 3.5-5.1 (m mol/L) Final Cl 10/19/2024 05:25:33 96 Below low normal 98- 107 (mmol/L) Final CO2 10/19/2024 05:25:33 28 22-32 (mmo l/L) Final Anion gap 10/19/2024 05:25:33 10 7-15 (mmol /L) Final Glucose 10/19/2024 05:25:33 112 70-120 (mg /dL) Final Calcium 10/19/2024 05:25:33 9.2 8.4-10.2 ( mg/dL) Final [facility] [address] [place] [address]
--- OUTSIDE RECORDS SUMMARY | 2024-10-29 12:14 | External Medical Summary ---
Author Name Unknown Address Unknown Organization [id number]:[facility] [place] [address] Laboratory Report Ordering Provider Test Date Status RICHARD GALEANA 10/21/2024 05:41:36 Final Observation Date Value Abnormality Reference (Units ) Status BUN 10/21/2024 05:41:36 18 6-20 (mg/dL) Final Creatinine 10/21/2024 05:41:36 1.0 0.5-1.0 (mg/dL) Final Glomerular filtration rate/1.73 sq M.predicted [Volume Rate/Area] in Serum, Plasma or Blood by Creatinine-based formula (CKD-EPI) 10/21/2024 05:41:36 54 Below low normal >=60 (mL/min) Final eGFR is calculated based on the CKD-EPI 2020 equation. Sodium 10/21/2024 05:41:36 135 135-146 (m mol/L) Final Potassium 10/21/2024 05:41:36 4.8 3.5-5.1 (m mol/L) Final Cl 10/21/2024 05:41:36 96 Below low normal 98- 107 (mmol/L) Final CO2 10/21/2024 05:41:36 27 22-32 (mmo l/L) Final Anion gap 10/21/2024 05:41:36 12 7-15 (mmol /L) Final Glucose 10/21/2024 05:41:36 119 70-120 (mg /dL) Final Calcium 10/21/2024 05:41:36 9.5 8.4-10.2 ( mg/dL) Final Performing Location [facility] [place] [address]
--- OUTSIDE RECORDS SUMMARY | 2024-10-29 12:14 | External Medical Summary ---
Author Name Unknown Address Unknown Organization [id number]:[facility]ATORY [place] [address] Laboratory Report Ordering Provider Test Date Status CHRIS COTO 10/26/2024 05:35:11 Final Observation Date Value Abnormality Reference (Units ) Status WBC, Total 10/26/2024 05:35:11 8.06 4.00-10.8 0 (K/uL) Final RBC 10/26/2024 05:35:11 4.13 3.85-5.15 (M/uL) Final Hemoglobin 10/26/2024 05:35:11 11.6 Below low normal 12 .0-15.3 (g/dL) Final HCT 10/26/2024 05:35:11 36.5 36.0-45.2 (%) Final MCV 10/26/2024 05:35:11 88.4 81.5-97.5 (fL) Final MCH 10/26/2024 05:35:11 28.1 27.0-34.0 (pg) Final MCHC 10/26/2024 05:35:11 31.8 32.0-36.0 (g/dL) Final RDW 10/26/2024 05:35:11 15.4 11.5-15.5 (%) Final Platelets 10/26/2024 05:35:11 355 140-400 (K /uL) Final MPV 10/26/2024 05:35:11 9.2 6.6-11.1 ( fL) Final Performing Location [facility]ATORY [place] [address]
--- OUTSIDE RECORDS SUMMARY | 2024-10-29 12:14 | External Medical Summary ---
Author Name Unknown Address Unknown Organization [id number]:[facility]ATORY [place] [address] Laboratory Report Ordering Provider Test Date Status CHRIS COTO 10/26/2024 05:35:11 Final Observation Date Value Abnormality Reference (Units ) Status BUN 10/26/2024 05:35:11 19 6-20 (mg/dL) Final Creatinine 10/26/2024 05:35:11 1.2 Above high normal 0.5-1.0 (mg/dL) Final Glomerular filtration rate/1.73 sq M.predicted [Volume Rate/Area] in Serum, Plasma or Blood by Creatinine-based formula (CKD-EPI) 10/26/2024 05:35:11 45 Below low normal >=60 (mL/min) Final eGFR is calculated based on the CKD-EPI 2020 equation. Sodium 10/26/2024 05:35:11 134 Below low normal 135 -146 (mmol/L) Final Potassium 10/26/2024 05:35:11 4.9 3.5-5.1 (m mol/L) Final Cl 10/26/2024 05:35:11 96 Below low normal 98- 107 (mmol/L) Final CO2 10/26/2024 05:35:11 27 22-32 (mmo l/L) Final Anion gap 10/26/2024 05:35:11 11 7-15 (mmol /L) Final Glucose 10/26/2024 05:35:11 112 70-120 (mg /dL) Final Calcium 10/26/2024 05:35:11 9.7 8.4-10.2 ( mg/dL) Final Performing Location [facility]ATORY [place] [address]
--- OUTSIDE RECORDS SUMMARY | 2024-10-29 12:14 | External Medical Summary ---
Author Name Unknown Address Unknown [id number] [address] [place] [address] Laboratory Report Ordering Provider Test Date Status CHRIS COTO 10/19/2024 05:25:33 Final Observation Date Value Abnormality Reference (Units ) Status WBC, Total 10/19/2024 05:25:33 8.90 4.00-10.8 0 (K/uL) Final RBC 10/19/2024 05:25:33 4.22 3.85-5.15 (M/uL) Final Hemoglobin 10/19/2024 05:25:33 11.9 Below low normal 12 .0-15.3 (g/dL) Final HCT 10/19/2024 05:25:33 37.1 36.0-45.2 (%) Final MCV 10/19/2024 05:25:33 87.9 81.5-97.5 (fL) Final MCH 10/19/2024 05:25:33 28.2 27.0-34.0 (pg) Final MCHC 10/19/2024 05:25:33 32.1 32.0-36.0 (g/dL) Final RDW 10/19/2024 05:25:33 14.9 11.5-15.5 (%) Final Platelets 10/19/2024 05:25:33 294 140-400 (K /uL) Final MPV 10/19/2024 05:25:33 9.8 6.6-11.1 ( fL) Final Performing Location LABORATORY [facility] [address] [place] [address]
[2024-10-29 12:36] LABS: Basophils # (auto) 0.03 K/uL (0.00-0.20); Basophils % (auto) 0.3 %; Eosinophils # (auto) 0.04 K/uL (0.00-0.50); Eosinophils % (auto) 0.5 %; Hematocrit (blood only) 38.2 % (37.0-47.0); Hemoglobin 12.7 g/dl (12.0-16.0); Immature Granulocytes # (auto) 0.05 K/uL (0.01-0.20); Immature Granulocytes % (auto) 0.6 %; Lymphocytes # (auto) 0.84 K/uL (1.20-3.40); Lymphocytes % (auto) 9.5 %; Mean Corpuscular Hemoglobin 28.3 pg (25.0-34.0); Mean Corpuscular Hgb Conc 33.2 g/dL (32.0-36.0); Mean Corpuscular Volume 85.3 fL (80.0-100.0); Mean Platelet Volume 8.6 fL (9.4-12.4); Monocytes # (auto) 0.79 K/uL (0.11-0.59); Neutrophils # (auto) 7.06 K/uL (1.40-6.50); Neutrophils % (auto) 80.1 %; Platelet Count 364 K/uL (130-400); RDW Standard Deviation 46.6 fL (36.4-46.3); Red Blood Count 4.48 M/uL (4.20-5.40); White Blood Count 8.81 K/ul (4.8-10.8)
[2024-10-29 12:53] LABS: BUN Creatinine Ratio 14.3 (10-20); Creatinine Clr Calc Pharmacy 34.2 ml/min; Potassium 4.3 mmol/L (3.5-5.1)
[2024-10-29] MEDS: ACETAMINOPHEN 500 MG TAB PO STA (12:57)
[2024-10-29] MEDS: LIDOCAINE 5% 1 PATCH TD STA (12:57)
[2024-10-29] MEDS: methylPREDNISolone 125 MG/2 ML VIAL IV STA (12:58)
--- NOTE | 2024-10-29 13:14 | XRay Report ---
XR chest 1V portable CLINICAL HISTORY: wheeze R lower chest TECHNIQUE: Single frontal radiograph of the chest was obtained. Comparison: Comparison is made to chest radiograph 06/20/2024 FINDINGS: No lines and tubes are seen. Cardiomegaly is noted. The lungs are clear. No evidence of pleural effus ion or pneumothorax. IMPRESSION: No acute abnormalities and in particular no radiographic evidence of pneumonia. ACT 112: Negative or not required by law. Electronically signed by: Curtis Elliott M.D. 10/29/2024 1:12 PM
--- NOTE | 2024-10-29 13:20 | CT Scan Report ---
CT thoracic spine wo con CLINICAL HISTORY: reeval back frx's, pain TECHNIQUE: Multidetector row helical CT of the thoracic spine was performed without administration of intravenous contrast. Coronal and sagittal reformations were obtained. Automated dose lowering techn iques and/or adjustment according to patient size were utilized for this exam. CT DOSE: 1280.45 mGy.cm Comparison: Comparison is made to CT lumbar spine 10/14/2024 FINDINGS: There is an acute fracture of the inferior endplate of T11 and superior endplate of T12 with surround ing hematoma. There is approximately 4 mm retropulsion. Degenerative changes are noted in the visuali zed spine. Vertebral body alignment is within normal limits. Atelectasis is seen in the left greater the right lung base. IMPRESSION: Acute fracture of the inferior aspect of T11 and the superior endplate of T12 with associated hematom a. There is approximately 4 mm retropulsion. ACT 112: Negative or not required by law. Electronically signed by: Curtis Elliott M.D. 10/29/2024 1:18 PM
[2024-10-29 13:33] LABS: Adenovirus PCR Not Detected (NotDetected); Bordetella parapertussis PCR Not Detected (NotDetected); Bordetella pertussis PCR Not Detected (NotDetected); Chlamydia pneumoniae PCR Not Detected (NotDetected); Coronavirus 229E PCR Not Detected (NotDetected); Coronavirus CoV-2 (COVID19)PCR Not Detected (NotDetected); Coronavirus HKU1 PCR Not Detected (NotDetected); Coronavirus NL63 PCR Not Detected (NotDetected); Coronavirus OC43PCR Not Detected (NotDetected); Human Metapneumovirus PCR Not Detected (NotDetected); Influenza A PCR Not Detected (NotDetected); Influenza B PCR Not Detected (NotDetected); Mycoplasma pneumoniae PCR Not Detected (NotDetected); Parainfluenza Virus 1 PCR Not Detected (NotDetected); Parainfluenza Virus 2 PCR Not Detected (NotDetected); Parainfluenza Virus 3 PCR Not Detected (NotDetected); Parainfluenza Virus 4 PCR Not Detected (NotDetected); Respiratory Syncytial VirusPCR Not Detected (NotDetected); Rhinovirus/Enterovirus PCR Not Detected (NotDetected)
[2024-10-29] MEDS: MoRPHine SULFATE 2 MG/ML CARP IV STA (14:56)
--- NOTE | 2024-10-29 15:42 | History & Physical Report ---
Date of Service October 29, 2024 Assessment & Plan (1) Thoracic spine fracture: (2) Ambulatory dysfunction: (3) Intractable back pain: (4) Hyponatremia: (5) HTN (hypertension): (6) CKD (chronic kidney disease), stage III: (7) Hard of hearing: Plan This is an 88-year-old female with PMH of hypertension, CKD 3, recent admission for fall and subsequent T11-12 compression fractures discharged to [facility] on who returns this morning due to uncontrolled pain. T11-12 compression fractures from recent fall Intractable pain Ambulatory dysfunction Admitted at [facility] following fall at home, found to have acute nondisplaced fractures are seen within the inferior endplate of T11 and superior endplate of T12 at that time. No retropulsion at that time Discharged to [facility] but brought in by family today due to uncontrolled pain Continue scheduled Tylenol, lidocaine patch, adding PRN tramadol for moderate pain and IV morphine for severe Received 125mg IV Solu-medrol in ED x 1 Repeat imaging today with acute fracture of the inferior aspect of T11 and the superior endplate of T12 with associated hematoma. There is approximately 4 mm retropulsion ED discussed with correctional nurse Dr. Orozco- no surgical intervention at this time, recommended TLSO brace and pain mgmt Avoid NSAIDs given Cr Cl and hematoma noted on CT spine Routine ortho consult for further recs PT / OT evaluation Fall precautions Family interested in SNF rehab if possible due to [facility] too rigorous based on age ? Altered mental status Possible confusion noted at [facility] earlier today, in setting of oxycodone Mentation seems to be at baseline while in ED Consider CT head if mentation changes Afebrile, no evidence of infection on CXR, Resp viral panel negative, UA pending Hyponatremia work-up as below Hyponatremia Na 129 today, was 134 on 10/18 Appears dry on exam, Cl also low at 92 Given 500ml NSS in ED Serum osm, urine osm, urine Na ordered Monitor repeat BMP HTN Continue lisinopril CKD III Cr: 1.19 today (baseline Cr: 1.1-1.3) Monitor renal functions, avoid nephrotoxic agents when possible DVT Ppx: SCDs for now given hematoma seen on spinal CT Code status: FULL per discussion with patient/ at bedside PCP: Michael Dispo: Admitted to med/surg Patient seen in collaboration with Dr. Gutierrez. Please see addendum. I spent a total of 75 minutes coordinating, documenting, and providing care for this patient excluding time spent in the performance of separately billed services. History of Present Illness Chief Complaint: back pain Primary Care Provider: Veronica Rodriguez MD This is an 88-year-old female with PMH of hypertension, CKD 3, recent admission for fall and subsequent T11-12 compression fractures discharged to [facility] on who returns this morning due to uncontrolled pain. History primarily obtained from daughter and grandson at bedside due to patient being very hard of hearing. Has been on scheduled Tylenol, lidocaine patch and as needed oxycodone at [facility] but is still experience a lot of pain. Reportedly hypoxic overnight after oxycodone dose and now on oxygen, which is not her baseline. Family brought her head for optimization of pain control as well as evaluation for SNF rehab as family feels inpatient rehab is to insensate for patient and she had trouble participating fully. Reports chronic urinary incontinence and ambulatory dysfunction. Already has a TLSO brace from previous admission that is in her daughter's car. Rehab note mentions possible confusion this morning thought to be 2/2 pain control with narcotics. Appears to be at baseline in ED with family present. Reports she often is forgetful and often unsure of date but answers simple questions appropriately. Denies fever/chills, headache, CP, SOB, N/V, abdominal pain, diarrhea or constipation. No bowel or bladder changes or new weakness in BLE. Did have emesis x 1 this AM but grandson thinks she had a capsule pill get stuck. Has not recurred. Completed abx course for E coli UTI noted on previous admission. Allergies Allergy/AdvReac Type Severity Reaction Status Date / Time No Known Allergies Allergy Verified 08/12/24 08:41 Home Medications Medication Instructions Recorded Confirmed Type acetaminophen 500 mg tablet 1,000 mg PO Q8H 10/29/24 10/29/24 History cholecalciferol (vitamin D3) 50 50 mcg PO DAILY 10/29/24 10/29/24 History mcg (2,000 unit) tablet docusate sodium 100 mg capsule 100 mg PO BID 10/29/24 10/29/24 History heparin (porcine) 5,000 unit/mL 5,000 unit subcut Q12H 10/29/24 10/29/24 History injection solution lidocaine 4 % topical patch 1 patch topical DAILY 10/29/24 10/29/24 History lisinopril 20 mg tablet 20 mg PO DAILY 10/29/24 10/29/24 History ondansetron 4 mg disintegrating 4 mg PO Q6H PRN Nausea And Vomiting 10/29/24 10/29/24 History tablet pantoprazole 40 mg tablet,delayed 40 mg PO DAILY 10/29/24 10/29/24 History release Past Med/Surg History Problem List (Updated 10/29/24 @ 17:12 by Ángela Carrasquillo PA-C) Intractable back pain Hyponatremia Ambulatory dysfunction Thoracic spine fracture Recurrent falls Spiral fracture of shaft of tibia (Acute) Fall from standing (Acute) Elevated troponin (Acute) Leukocytosis (Acute) Acute UTI (Acute) MIRTHA (acute kidney injury) (Acute) HTN (hypertension) Elevated troponin UTI (urinary tract infection) Fall Weakness CKD (chronic kidney disease), stage III Low back pain (Chronic) Numbness and tingling in right hand (Chronic) Dyspnea on exertion (Chronic) Weakness of right foot (Acute) TIA (transient ischemic attack) (Acute) Dyslipidemia Impaired fasting glucose HbA1c of 6.1 % July 2014 Encounter for health maintenance examination in adult Medicare annual wellness visit, subsequent Preop exam for internal medicine Cataract Encounter for pre-operative examination Medical History Hard of hearing Surgical History History of cataract surgery LEFT History of colonoscopy S/P appendectomy HX S/P total knee arthroplasty HX bilateral, Dr Fuentes at [facility] [place] [place] Family History Father Pancreatic cancer Mother Alzheimer disease Sister Non Hodgkin's lymphoma Denies family history of Ovarian cancer Prostate cancer Myocardial infarction Breast cancer Colorectal cancer Social History Smoking Status: Never smoker Second Hand Exposure: No; Do You Dip or Chew Tobacco: No; Hx Alcohol Use: No Hx Substance Use: No Preferred Language: Norwegian Communication Ability: Impaired Visual Impairment: Limited Hearing Ability: Use of Hearing Aid Copper Tapper Required: No Beliefs That Will Affect Care: None marital status: Current Living Situation: Spouse Current Living Situation Comment: Lives in a home with current occupational status: retired Feels Safe at Home: Yes Childhood Exposure to Second-Hand Smoke: No Diet: regular Diet Comment: Regular caffeine: Yes (little amount) during the past year weight has: remained stable Dental Care, Regularly: Yes Physical Activity Frequency: Does not Exercise Seatbelt Use: always Sunscreen Use: No Assistive Devices: Raised Toilet Seat and Walker Review of Systems Review of Systems: At least ten systems reviewed and negative except as noted in the HPI. Physical Exam Physical Exam: General Appearance: WD/WN, vitals as above, NAD, sitting up in bed, pleasant, hard of hearing but following conversation Head: normocephalic, atraumatic Eyes: normal inspection, PERRL, conjunctivae normal, anicteric sclerae ENT: external ear and nose normal, oropharynx dry mucous membranes Neck: normal visual inspection Respiratory: normal respiratory effort, scattered rhonchi improved with cough. No accessory muscle use Cardiovascular: regular rate, rhythm, no BLE edema Chest: normal inspection of chest Abdomen/GI: normal bowel sounds, soft, nontender, no hepatosplenomegaly Extremities/Musculoskeletal: + Thoracic spine with TTP along spinous processes, lidocaine patch in place, no deformities noted, extremities motor strength 5/5 Neurologic: PERRL, EOMI, accommodation nl, no face palsy, no dysarthria, CN's II-XI intact bilaterally and moves all extremities Psychiatric: A+Ox3, euthymic affect Skin: no rashes, normal color, warm/dry Results & Data Results & Data Vital Signs (Past 12 Hours) Vital Signs Temp Pulse Pulse Resp BP BP Pulse Ox 10/29/24 14:52 72 20 147/82 H 95 10/29/24 12:29 69 17 90 10/29/24 12:20 36.7 C 69 17 143/81 H 90 10/29/24 12:20 36.7 C 69 17 143/81 H 90 O2 Del Method 10/29/24 14:52 Room Air 10/29/24 12:29 Room Air 10/29/24 12:20 Room Air 10/29/24 12:20 Room Air Laboratory Results Short CBC 10/29/24 Range/Units 12:20 WBC 8.81 (4.8-10.8) K/ul Hgb 12.7 (12.0-16.0) g/dl Hct 38.2 (37.0-47.0) % Plt Count 364 (130-400) K/uL BMP 10/29/24 12:20 Sodium 129 L Potassium 4.3 Chloride 92 L Carbon Dioxide 29 BUN 17 Creatinine 1.19 Glucose 118 H Calcium 10.0 Diagnostic Findings Thoracic Spine CT 10/29/24 12:19 CT thoracic spine wo con CLINICAL HISTORY: reeval back frx's, pain TECHNIQUE: Multidetector row helical CT of the thoracic spine was performed without administration of intravenous contrast. Coronal and sagittal reformations were obtained. Automated dose lowering techniques and/or adjustment according to patient size were utilized for this exam. CT DOSE: 1280.45 mGy.cm Comparison: Comparison is made to CT lumbar spine 10/14/2024 FINDINGS: There is an acute fracture of the inferior endplate of T11 and superior endplate of T12 with surrounding hematoma. There is approximately 4 mm retropulsion. Degenerative changes are noted in the visualized spine. Vertebral body alignment is within normal limits. Atelectasis is seen in the left greater the right lung base. IMPRESSION: Acute fracture of the inferior aspect of T11 and the superior endplate of T12 with associated hematoma. There is approximately 4 mm retropulsion. ACT 112: Negative or not required by law. Electronically signed by: Curtis Elliott M.D. 10/29/2024 1:18 PM Chest X-Ray 10/29/24 12:28 XR chest 1V portable CLINICAL HISTORY: wheeze R lower chest TECHNIQUE: Single frontal radiograph of the chest was obtained. Comparison: Comparison is made to chest radiograph 06/20/2024 FINDINGS: No lines and tubes are seen. Cardiomegaly is noted. The lungs are clear. No evidence of pleural effusion or pneumothorax. IMPRESSION: No acute abnormalities and in particular no radiographic evidence of pneumonia. ACT 112: Negative or not required by law. Electronically signed by: Curtis Elliott M.D. 10/29/2024 1:12 PM Supervising Physician Co-Signing Physician Notes Attending Addendum: Case reviewed with the advanced practitioner. I have personally performed a history and physical examination on the patient. I have reviewed the advanced practitioner's documentation on the date of service referenced in note, and I agree with, and take responsibility for the plan of care. please refer to her notes for full details patient seen and examined, records reviewed by myself as well ASSESSMENT AND PLAN T11, T12 compression fracture with hematoma CT thoracic spine:Acute fracture of the inferior aspect of T11 and the superior endplate of T12 with associated hematoma. There is approximately 4 mm retropulsion. Pain control with morphine, tramadol No anticoagulants, antiplatelets in light of hematoma Consult orthospine PT OT evaluation Will need assisted facility placement other diagnoses and plan of care as per advanced practitioner's notes Angel Gutierrez MD
[2024-10-29] MEDS ORDERED: ALUMINUM/MAGNESIUM SUSP 30 ML UDC PO PRN (18:46)
[2024-10-29] MEDS ORDERED: POLYETHYLENE (MIRALAX) 17 GM PACK PO PRN (18:46)
[2024-10-29] MEDS: DOCUSATE SODIUM 100 MG CAP PO SCH (21:02)
[2024-10-29] MEDS: SODIUM CHLORIDE 0.9% 500 ML IV SCH (21:26)
[2024-10-29] MEDS: ACETAMINOPHEN 500 MG TAB PO SCH (23:21)
[2024-10-30] MEDS: traMADol HCL 50 MG TABLET PO PRN (00:50)
[2024-10-30 07:19] LABS: Hematocrit (blood only) 37.4 % (37.0-47.0); Hemoglobin 12.4 g/dl (12.0-16.0); Mean Corpuscular Hemoglobin 28.2 pg (25.0-34.0); Mean Corpuscular Hgb Conc 33.2 g/dL (32.0-36.0); Mean Platelet Volume 8.8 fL (9.4-12.4); Platelet Count 397 K/uL (130-400); RDW Coefficient of Variation 14.9 % (11.5-14.5); RDW Standard Deviation 46.1 fL (36.4-46.3); White Blood Count 7.22 K/ul (4.8-10.8)
[2024-10-30 07:43] LABS: Calcium 10.1 mg/dl (8.6-10.3); Creatinine Clr Calc Pharmacy 43.6 ml/min; Potassium 4.5 mmol/L (3.5-5.1)
[2024-10-30] MEDS: lisinopril 20 MG TAB PO SCH (08:12)
[2024-10-30] MEDS: CHOLECALCIFEROL 25 MCG (1000 UNITS) TAB PO SCH (08:12)
[2024-10-30] MEDS: LIDOCAINE 5% 1 PATCH TD SCH (08:12)
[2024-10-30] MEDS: PANTOprazole 40 MG TAB PO SCH (08:13)
[2024-10-30] MEDS ORDERED: NON-FORMULARY MEDICATION (Lidocaine 4 % Adhesive Patch,Medicated) TOP SCH (09:00)
[2024-10-30 10:42] LABS: Appearance Urine Clear (Clear); Bilirubin Urine Negative (Negative); Blood Urine Negative (Negative); Color Urine Yellow; Glucose Urine UA Negative (Negative); Ketones Urine Negative (Negative); Leukocyte Esterase Urine Negative (Negative); Nitrite Urine Negative (Negative); Protein Urine Negative (Negative); Specific Gravity Urine 1.015 (1.000-1.030); Urobilinogen Urine Negative (Negative); pH Urine 5.5 (4.5-7.5)
--- NOTE | 2024-10-30 11:17 | Orthopedic Consultation ---
Date of Service October 30, 2024 Assessment & Plan (1) Intractable back pain: (2) Thoracic spine fracture: History of Present Illness Reason for Consultation: Thoracic compression fracture. Requesting Physician: . Attending Physician: Sarah Lopez MD 88-year-old female with PMH of hypertension, CKD 3, recent admission for fall and subsequent T11-12 compression fractures discharged to [facility] on who returns 10/29 due to thoracolumbar pain. History primarily obtained from daughter and grandson at bedside due to patient being very hard of hearing. Has been on scheduled Tylenol, lidocaine patch and as needed oxycodone at [facility] but is still experience a lot of pain. Reportedly hypoxic overnight after oxycodone dose and now on oxygen, which is not her baseline. Family brought her head for optimization of pain control as well as evaluation for SNF rehab as family feels inpatient rehab is to insensate for patient and she had trouble participating fully. Reports chronic urinary incontinence and ambulatory dysfunction. Already has a TLSO brace from previous admission that is in her daughter's car. Rehab note mentions possible confusion this morning thought to be 2/2 pain control with narcotics. In talking with the patient this morning, she is comfortable when lying still, her pain is the mid lower lumbar region. She denies any lower extremity symptomatology. In talking with her, she states she has a brace but it is at [facility]. Exam reveals the patient to have some limited pain to palpation more in the lower thoracic but also upper lumbar region, minimally tender to palpation. She has intact strength 5/5 for all groups tested in the lower extremities including EHL ankle plantar dorsiflexion knee flexion extension and hip flexion strength. No clonus noted. CT thoracic spine wo [facility] from October 29, 2023 CLINICAL HISTORY: reeval back frx's, pain TECHNIQUE: Multidetector row helical CT of the thoracic spine was performed without administration of intravenous contrast. Coronal and sagittal reformations were obtained. Automated dose lowering techniques and/or adjustment according to patient size were utilized for this exam. Comparison: Comparison is made to CT lumbar spine 10/14/2024 FINDINGS: There is an acute fracture of the inferior endplate of T11 and superior endplate of T12 with surrounding hematoma. There is approximately 4 mm retropulsion. Degenerative changes are noted in the visualized spine. Vertebral body alignment is within normal limits. Atelectasis is seen in the left greater the right lung base. IMPRESSION: Acute fracture of the inferior aspect of T11 and the superior endplate of T12 with associated hematoma. There is approximately 4 [address]rop[address]. Review of CT scan images from October 29, 2023, this includes comparison to previous CT scan images from October 14, 2024, this is my separate interpretation, this reveals the compression fractures at the inferior aspect of T11 and superior aspect of T12 with approximately 25% loss of height. Mild canal narrowing. There is some change relative to the prior CT scan from 2 weeks previous. Impression: Compression fractures involving inferior aspect of T11 and superior aspect of T12, stable overall alignment. Plan: I discussed with the patient that I would recommend continued brace management of the fractures, she reports to me that her brace is at [facility], I requested that a family member obtain this brace and bring it to the hospital so it can be worn when the patient is out of bed and mobilize with physical therapy, she will need follow-up with radiographs, this can be performed by Dr. Avitia's office as he was the original consulting physician 2 weeks previous or my office. Allergies Allergy/AdvReac Type Severity Reaction Status Date / Time No Known Allergies Allergy Verified 08/12/24 08:41 Home Medications Medication Instructions Recorded Confirmed Type acetaminophen 500 mg tablet 1,000 mg PO Q8H 10/29/24 10/29/24 History cholecalciferol (vitamin D3) 50 50 mcg PO DAILY 10/29/24 10/29/24 History mcg (2,000 unit) tablet docusate sodium 100 mg capsule 100 mg PO BID 10/29/24 10/29/24 History heparin (porcine) 5,000 unit/mL 5,000 unit subcut Q12H 10/29/24 10/29/24 History injection solution lidocaine 4 % topical patch 1 patch topical DAILY 10/29/24 10/29/24 History lisinopril 20 mg tablet 20 mg PO DAILY 10/29/24 10/29/24 History ondansetron 4 mg disintegrating 4 mg PO Q6H PRN Nausea And Vomiting 10/29/24 10/29/24 History tablet pantoprazole 40 mg tablet,delayed 40 mg PO DAILY 10/29/24 10/29/24 History release Past Med/Surg History Problem List (Updated 10/30/24 @ 08:00 by Chris Stokes MD) Intractable back pain (Acute) Hyponatremia (Acute) Ambulatory dysfunction Thoracic spine fracture (Acute) Recurrent falls Spiral fracture of shaft of tibia (Acute) Fall from standing (Acute) Elevated troponin (Acute) Leukocytosis (Acute) Acute UTI (Acute) MIRTHA (acute kidney injury) (Acute) HTN (hypertension) Elevated troponin UTI (urinary tract infection) Fall Weakness CKD (chronic kidney disease), stage III Low back pain (Chronic) Numbness and tingling in right hand (Chronic) Dyspnea on exertion (Chronic) Weakness of right foot (Acute) TIA (transient ischemic attack) (Acute) Dyslipidemia Impaired fasting glucose HbA1c of 6.1 % July 2014 Encounter for health maintenance examination in adult Medicare annual wellness visit, subsequent Preop exam for internal medicine Cataract Encounter for pre-operative examination Medical History Hard of hearing Surgical History History of cataract surgery LEFT History of colonoscopy S/P appendectomy HX S/P total knee arthroplasty HX bilateral, Dr Fuentes at [facility] [place] Family History Father Pancreatic cancer Mother Alzheimer disease Sister Non Hodgkin's lymphoma Denies family history of Ovarian cancer Prostate cancer Myocardial infarction Breast cancer Colorectal cancer Social History Smoking Status: Never smoker Second Hand Exposure: No; Do You Dip or Chew Tobacco: No; Hx Alcohol Use: No Hx Substance Use: No Preferred Language: Iranian Communication Ability: Effective Visual Impairment: Limited Hearing Ability: Use of Hearing Aid Archives Director Required: No Beliefs That Will Affect Care: None marital status: Current Living Situation: Detention Current Living Situation Comment: Lives in a home with current occupational status: retired Other Information That Helps Us Care for You: No Feels Safe at Home: Yes Childhood Exposure to Second-Hand Smoke: No Diet: regular Diet Comment: Regular caffeine: Yes (little amount) during the past year weight has: remained stable Dental Care, Regularly: Yes Physical Activity Frequency: Does not Exercise Seatbelt Use: always Sunscreen Use: No Assistive Devices: Raised Toilet Seat and Walker Review of Systems All systems reviewed & are unremarkable except as noted in HPI & below. Physical Exam . Results & Data Results & Data Laboratory Results . Diagnostic Findings . PG Care Time/CCT Total # of Minutes Spent Total Time Spent with Patient: Total time spent is greater than 50% in coordination of care (as documented) at patient's floor/unit and/or counseling patient: Coding Level of Care Code 95867 IN/OBS CONSULT LVL 3,45M Diagnoses Intractable back pain M54.9 Thoracic spine fracture S22.089A Encounter type: initial encounter Fracture morphology: unspecified fracture morphology Fracture type: closed Thoracic vertebra fracture level: T11 (2) Thoracic spine fracture Encounter type: initial encounter Fracture morphology: unspecified fracture morphology Fracture type: closed Thoracic vertebra fracture level: T11 Qualified Code(s): S22.089A - Unspecified fracture of T11-T12 vertebra, initial encounter for closed fracture
[2024-10-30] MEDS: MoRPHine SULFATE 4 MG/ML 1 ML CARP\\VIAL IV PRN (11:21)
--- NOTE | 2024-10-30 12:16 | Hospitalist Progress Note ---
Date of Service October 30, 2024 Assessment & Plan (1) Thoracic spine fracture: (2) Ambulatory dysfunction: (3) Intractable back pain: (4) Hyponatremia: (5) HTN (hypertension): (6) CKD (chronic kidney disease), stage III: (7) Hard of hearing: Plan This is an 88-year-old female with PMH of hypertension, CKD 3, recent admission for fall and subsequent T11-12 compression fractures discharged to [facility] on who returns this morning due to uncontrolled pain. T11-12 compression fractures from recent fall Intractable pain Ambulatory dysfunction Admitted at [facility] [place] following fall at home, found to have acute nondisplaced fractures are seen within the inferior endplate of T11 and superior endplate of T12 at that time. No retropulsion at that time Discharged to [facility] but brought in by family today due to uncontrolled pain Continue scheduled Tylenol, lidocaine patch, adding PRN tramadol for moderate pain and IV morphine for severe Received 125mg IV Solu-medrol in ED x 1 Repeat imaging today with acute fracture of the inferior aspect of T11 and the superior endplate of T12 with associated hematoma. There is approximately 4 mm retropulsion ED discussed with telecommunications project manager Dr. Orozco- no surgical intervention at this time, recommended TLSO brace and pain mgmt Avoid NSAIDs given Cr Cl and hematoma noted on CT spine Routine ortho consult for further recs PT / OT evaluation Fall precautions Family interested in SNF rehab if possible due to [facility] too rigorous based on age 0110/30/24- pain controlled, ortho recommending use of TLSO brace once more ? Altered mental status Possible confusion noted at [facility] earlier today, in setting of oxycodone Mentation seems to be at baseline while in ED Consider CT head if mentation changes Afebrile, no evidence of infection on CXR, Resp viral panel negative, UA pending Hyponatremia work-up as below Improved Hyponatremia Na 129 today, was 134 on 10/18 Appears dry on exam, Cl also low at 92 Given 500ml NSS in ED Serum osm, urine osm, urine Na ordered Improved HTN Continue lisinopril CKD III Cr: 1.19 today (baseline Cr: 1.1-1.3) Monitor renal functions, avoid nephrotoxic agents when possible DVT Ppx: SCDs for now given hematoma seen on spinal CT Code status: FULL per discussion with patient/ at bedside PCP: Michael Dispo: pt/ot for further recs, family wants SNF Admission and Anticipated Discharge Date Admission Date: October 29, 2024 Subjective patient was seen laying in bed Noted that her pain was controlled at the time Hard of hearing Review of Systems Review of Systems: All systems reviewed & are unremarkable except as noted in Subjective Physical Exam Physical Exam: General: Alert, oriented. Psych: Appropriate mood and affect Neuro: difficulty with movements in the bed HEENT: NC/AT CV: RRR Resp: Breath sounds clear bilaterally, no increased effort of breathing Abdomen: Soft, nontender Results & Data Results & Data Vital Signs (Past 12 Hours) Vital Signs Temp Pulse Resp BP Pulse Ox O2 Del Method O2 Flow Rate 10/30/24 07:58 36.5 C 61 18 118/73 96 Nasal Cannula 2 Diagnostic Findings Thoracic Spine CT 10/29/24 12:19 CT thoracic spine wo con CLINICAL HISTORY: reeval back frx's, pain TECHNIQUE: Multidetector row helical CT of the thoracic spine was performed without administration of intravenous contrast. Coronal and sagittal reformations were obtained. Automated dose lowering techniques and/or adjustment according to patient size were utilized for this exam. CT DOSE: 1280.45 mGy.cm Comparison: Comparison is made to CT lumbar spine 10/14/2024 FINDINGS: There is an acute fracture of the inferior endplate of T11 and superior endplate of T12 with surrounding hematoma. There is approximately 4 mm retropulsion. Degenerative changes are noted in the visualized spine. Vertebral body alignment is within normal limits. Atelectasis is seen in the left greater the right lung base. IMPRESSION: Acute fracture of the inferior aspect of T11 and the superior endplate of T12 with associated hematoma. There is approximately 4 mm retropulsion. ACT 112: Negative or not required by law. Electronically signed by: Curtis Elliott M.D. 10/29/2024 1:18 PM Chest X-Ray 10/29/24 12:28 XR chest 1V portable CLINICAL HISTORY: wheeze R lower chest TECHNIQUE: Single frontal radiograph of the chest was obtained. Comparison: Comparison is made to chest radiograph 06/20/2024 FINDINGS: No lines and tubes are seen. Cardiomegaly is noted. The lungs are clear. No evidence of pleural effusion or pneumothorax. IMPRESSION: No acute abnormalities and in particular no radiographic evidence of pneumonia. ACT 112: Negative or not required by law. Electronically signed by: Curtis Elliott M.D. 10/29/2024 1:12 PM (1) Thoracic spine fracture Encounter type: initial encounter Fracture morphology: unspecified fracture morphology Fracture type: closed Thoracic vertebra fracture level: T11 Qualif ied Code(s): S22.089A - Unspecified fracture of T11-T12 vertebra, initial encounter for closed fracture
[2024-10-31 07:09] LABS: Hematocrit (blood only) 36.2 % (37.0-47.0); Hemoglobin 11.8 g/dl (12.0-16.0); Mean Corpuscular Hemoglobin 27.9 pg (25.0-34.0); Mean Corpuscular Hgb Conc 32.6 g/dL (32.0-36.0); Mean Corpuscular Volume 85.6 fL (80.0-100.0); Mean Platelet Volume 8.6 fL (9.4-12.4); Platelet Count 383 K/uL (130-400); RDW Coefficient of Variation 15.4 % (11.5-14.5); RDW Standard Deviation 47.6 fL (36.4-46.3); Red Blood Count 4.23 M/uL (4.20-5.40); White Blood Count 9.38 K/ul (4.8-10.8)
[2024-10-31 07:24] LABS: Creatinine Clr Calc Pharmacy 35.2 ml/min; Potassium 4.2 mmol/L (3.5-5.1)
[2024-10-31] MEDS: SODIUM CHLORIDE 0.9% 1,000 ML IV SCH (08:30)
--- NOTE | 2024-10-31 10:33 | Hospitalist Progress Note ---
Date of Service October 31, 2024 Assessment & Plan (1) Thoracic spine fracture: (2) Ambulatory dysfunction: (3) Intractable back pain: (4) Hyponatremia: (5) HTN (hypertension): (6) CKD (chronic kidney disease), stage III: (7) Hard of hearing: Plan This is an 88-year-old female with PMH of hypertension, CKD 3, recent admission for fall and subsequent T11-[address] to [facility] on who returns this morning due to uncontrolled pain. T11-12 compression fractures from recent fall Intractable pain Ambulatory dysfunction Admitted at [facility] following fall at home, found to have acute nondisplaced fractures are seen within the inferior endplate of T11 and superior endplate of T12 at that time. No retropulsion at that time Discharged to [facility] but brought in by family today due to uncontrolled pain Continue scheduled Tylenol, lidocaine patch, adding PRN tramadol for moderate pain and IV morphine for severe Received 125mg IV Solu-medrol in ED x 1 Repeat imaging today with acute fracture of the inferior aspect of T11 and the superior endplate of T12 with associated hematoma. There is approximately 4 mm retropulsion ED discussed with marketing operations manager Dr. Orozco- no surgical intervention at this time, recommended TLSO brace and pain mgmt Avoid NSAIDs given Cr Cl and hematoma noted on CT spine Routine ortho consult for further recs PT / OT evaluation Fall precautions bowel regimen given the chronic use of narcotics Family interested in SNF rehab if possible due to [facility] too rigorous based on age 0110/30/24- pain controlled, ortho recommending use of TLSO brace once more 10/31/24 pain Management consult placed Acute Kidney Injury creatinine elevated to 1.24 on October 31 baseline in normal range usually IV fluids Avoid nephrotoxic meds as able continue to monitor ? Altered mental status Possible confusion noted at [facility] earlier today, in setting of oxycodone Mentation seems to be at baseline while in ED Consider CT head if mentation changes Afebrile, no evidence of infection on CXR, Resp viral panel negative, UA pending Hyponatremia work-up as below Improved Hyponatremia Na 129 today, was 134 on 10/18 Appears dry on exam, Cl also low at 92 Given 500ml NSS in ED Serum osm, urine osm, urine Na ordered Improved HTN Continue lisinopril CKD III Cr: 1.19 today (baseline Cr: 1.1-1.3) Monitor renal functions, avoid nephrotoxic agents when possible DVT Ppx: SCDs for now given hematoma seen on spinal CT Code status: FULL per discussion with patient/ at bedside PCP: Michael Dispo: pt/ot for further recs, family wants SNF Admission and Anticipated Discharge Date Admission Date: October 29, 2024 Subjective patient was seen laying in bed Noted that her pain was not controlled at the time Hard of hearing States pain is 7 or 8 Review of Systems Review of Systems: All systems reviewed & are unremarkable except as noted in Subjective Physical Exam Physical Exam: General: Alert, oriented. Psych: Appropriate mood and affect Neuro: difficulty with movements in the bed HEENT: NC/AT CV: RRR Resp: Breath sounds clear bilaterally, no increased effort of breathing Abdomen: Soft, nontender Results & Data Results & Data Vital Signs (Past 12 Hours) Vital Signs Temp Pulse Pulse Resp BP Pulse Ox O2 Del Method 10/31/24 07:52 36.5 C 78 16 128/78 92 Room Air 10/31/24 07:25 70 18 128/79 96 Room Air (1) Thoracic spine fracture Encounter type: initial encounter Fracture morphology: unspecified fracture morphology Fracture type: closed Thoracic vertebra fracture level: T11 Qualified Code(s): S22.089A - Unspecified fracture of T11-T12 vertebra, initial encounter for closed fracture
[2024-10-31] MEDS: POLYETHYLENE (MIRALAX) 17 GM PACK PO SCH (20:42)
[2024-11-01 08:18] LABS: Hematocrit (blood only) 36.3 % (37.0-47.0); Hemoglobin 12.1 g/dl (12.0-16.0); Mean Corpuscular Hemoglobin 28.2 pg (25.0-34.0); Mean Corpuscular Hgb Conc 33.3 g/dL (32.0-36.0); Mean Corpuscular Volume 84.6 fL (80.0-100.0); Mean Platelet Volume 8.5 fL (9.4-12.4); Platelet Count 315 K/uL (130-400); RDW Coefficient of Variation 15.3 % (11.5-14.5); RDW Standard Deviation 46.8 fL (36.4-46.3); Red Blood Count 4.29 M/uL (4.20-5.40); White Blood Count 8.77 K/ul (4.8-10.8)
[2024-11-01 08:41] LABS: BUN Creatinine Ratio 17.8 (10-20); Calcium 9.7 mg/dl (8.6-10.3); Creatinine Clr Calc Pharmacy 48.5 ml/min; Potassium 4.1 mmol/L (3.5-5.1)
--- NOTE | 2024-11-01 09:36 | Pain Management Consultation ---
Date of Consultation November 01, 2024 Assessment & Plan (1) Intractable back pain: (2) Thoracic spine fracture: Encounter type: initial encounter Fracture morphology: unspecified fracture morphology Fracture type: closed Thoracic vertebra fracture level: T11 Qualified Code(s): S22.089A - Unspecified fracture of T11- T12 vertebra, initial encounter for closed fracture (3) Fall from standing: Plan Patient states that she is tolerating the Tramadol 25mg Q4 hours but it is not providing adequate pain relief so I have increased the dosage to 50mg. If Tramadol is not effective enough, could consider switching the Hydrocodone. She does have Morphine IV if needed for breakthrough pain. Wear TLSO back brace when ambulating. There is nothing to offer interventionally. Will sign off on the patient. Please contact with any questions or concerns. History of Present Illness Attending Physician: Sarah Lopez MD History of Present Illness This is an 88-year-old female that fell last month and sustained a T11 and T12 compression fracture. She was provided with a TLSO back brace and discharged to rehab facility with the ability to take oxycodone for pain. While in the rehab facility she became confused and hypoxic so she was sent back to the [facility]. Oxycodone was discontinued and she was placed on tramadol 25 mg every 4 hours if needed as well as IV morphine if necessary for breakthrough pain. She states that the morphine does provide adequate relief. The tramadol 25 mg every 4 hours does not cause any side effects but does not provide pain control. Pain is located along the low back. No radicular symptoms. She does have a TLSO back brace. Allergies Allergy/AdvReac Type Severity Reaction Status Date / Time No Known Allergies Allergy Verified 08/12/24 08:41 Home Medications Medication Instructions Recorded Confirmed Type acetaminophen 500 mg tablet 1,000 mg PO Q8H 10/29/24 10/29/24 History cholecalciferol (vitamin D3) 50 50 mcg PO DAILY 10/29/24 10/29/24 History mcg (2,000 unit) tablet docusate sodium 100 mg capsule 100 mg PO BID 10/29/24 10/29/24 History heparin (porcine) 5,000 unit/mL 5,000 unit subcut Q12H 10/29/24 10/29/24 History injection solution lidocaine 4 % topical patch 1 patch topical DAILY 10/29/24 10/29/24 History lisinopril 20 mg tablet 20 mg PO DAILY 10/29/24 10/29/24 History ondansetron 4 mg disintegrating 4 mg PO Q6H PRN Nausea And Vomiting 10/29/24 10/29/24 History tablet pantoprazole 40 mg tablet,delayed 40 mg PO DAILY 10/29/24 10/29/24 History release Pain History Chief Complaint Chief Complaint: Back pain Patient History Medical History Hard of hearing Surgical History History of cataract surgery LEFT History of colonoscopy S/P appendectomy HX S/P total knee arthroplasty HX bilateral, Dr Fuentes at [facility] Family History Father Pancreatic cancer Mother Alzheimer disease Sister Non Hodgkin's lymphoma Denies family history of Ovarian cancer Prostate cancer Myocardial infarction Breast cancer Colorectal cancer Social History Smoking Status: Never smoker Second Hand Exposure: No; Do You Dip or Chew Tobacco: No; Hx Alcohol Use: No Hx Substance Use: No Preferred Language: Gabonese Communication Ability: Effective Visual Impairment: Limited Hearing Ability: Use of Hearing Aid Concert Promoter Required: No Beliefs That Will Affect Care: None marital status: Current Living Situation: Senior Living Current Living Situation Comment: Lives in a home with current occupational status: retired Other Information That Helps Us Care for You: No Feels Safe at Home: Yes Childhood Exposure to Second-Hand Smoke: No Diet: regular Diet Comment: Regular caffeine: Yes (little amount) during the past year weight has: remained stable Dental Care, Regularly: Yes Physical Activity Frequency: Does not Exercise Seatbelt Use: always Sunscreen Use: No Assistive Devices: Walker Physical Exam Physical Exam: GENERAL: This is an 88 year old female in no acute distress. HEAD/FACE: Normocephalic and atraumatic. EYES: No drainage or conjunctival injection. ENT: Nose without bleeding or discharge. Oral mucosa moist. NECK: Full ROM without apparent pain. No swelling or masses noted. RESPIRATORY: Patient with unlabored breathing. No signs of respiratory distress. CHEST/AXILLA: Chest movement symmetrical. No deformities noted. ABDOMEN/GI: No distension BACK: Increased thoracic kyphosis. There is tenderness along the upper lumbar midline. No SI joint tenderness. No myofascial spasm or trigger points noted. SKIN: [place], warm and dry. No rash noted. MS/EXTREMITY: No swelling, no deformities. Moving extremities appropriately. NEURO: Alert and appears oriented. Speech is fluent. Cranial Nerves are grossly intact. PSYCH: Alert, pleasant, affect is calm Results (Pain Clinic) Diagnostic Review CT Findings: CT LUMBAR SPINE: Severe intervertebral disc space narrowing at L2-L3 and L3-L4. Moderate to advanced multilevel facet arthrosis. Multilevel spondylitic spurring with posterior disc osteophyte complex relations at L2-L3 and L3-L4. Suboptimal evaluation of the central canal and neural foramen by CT technique. Transitional lumbosacral anatomy. No acute fracture, subluxation or endplate erosion identified. IMPRESSION: 1. Nonobstructing bilateral nephrolithiasis. No ureteral calculi or hydro nephrosis. 2. Subtle acute nondisplaced fractures are seen within the inferior endplate of T11 and superior endplate of T12. No retropulsion or significant vertebral body height loss. 3. Mild urothelial thickening with slight prominence of the left renal pelvis, suboptimally evaluated secondary to motion artifact. Correlate with urinalysis. 4. Cholelithiasis without CT evidence of acute cholecystitis. 5. Probable calcified uterine fibroids with nonspecific thickening of the postmenopausal endometrium.
[2024-11-01] MEDS: traMADol HCL 50 MG TABLET PO PRN (10:13)
--- NOTE | 2024-11-01 12:33 | Hospitalist Progress Note ---
Date of Service November 01, 2024 Assessment & Plan (1) Thoracic spine fracture: (2) Ambulatory dysfunction: (3) Intractable back pain: (4) Hyponatremia: (5) HTN (hypertension): (6) CKD (chronic kidney disease), stage III: (7) Hard of hearing: Plan This is an 88-year-old female with PMH of hypertension, CKD 3, recent admission for fall and subsequent T11-12 compression fractures discharged to [facility] on who returns this morning due to uncontrolled pain. T11-12 compression fractures from recent fall Intractable pain Ambulatory dysfunction Admitted at [facility] following fall at home, found to have acute nondisplaced fractures are seen within the inferior endplate of T11 and superior endplate of T12 at that time. No retropulsion at that time Discharged to [facility] but brought in by family today due to uncontrolled pain Continue scheduled Tylenol, lidocaine patch, adding PRN tramadol for moderate pain and IV morphine for severe Received 125mg IV Solu-medrol in ED x 1 Repeat imaging today with acute fracture of the inferior aspect of T11 and the superior endplate of T12 with associated hematoma. There is approximately 4 mm retropulsion ED discussed with stonemason apprentice Dr. Orozco- no surgical intervention at this time, recommended TLSO brace and pain mgmt Avoid NSAIDs given Cr Cl and hematoma noted on CT spine Routine ortho consult for further recs PT / OT evaluation Fall precautions bowel regimen given the chronic use of narcotics Family interested in SNF rehab if possible due to [facility] too rigorous based on age 0110/30/24- pain controlled, ortho recommending use of TLSO brace once more 10/31/24 pain Management consult placed 11/01/24- Seen by pain management. They recommended increasing tramadol dose. 2 sons at bedside today and upon further discussion are agreeable to palliative care evaluation for long-term pain management-patch? Sons also wanted to know what the plan was for dispo, case management notified via [employer]. Acute Kidney Injury on CKD creatinine elevated to 1.24 on October 31 baseline in normal range usually IV fluids Avoid nephrotoxic meds as able continue to monitor Improved ? Altered mental status Possible confusion noted at [facility] earlier today, in setting of oxycodone Mentation seems to be at baseline while in ED Consider CT head if mentation changes Afebrile, no evidence of infection on CXR, Resp viral panel negative, UA pending Hyponatremia work-up as below Improved Hyponatremia Na 129 today, was 134 on 10/18 Appears dry on exam, Cl also low at 92 Given 500ml NSS in ED Serum osm, urine osm, urine Na ordered Improved HTN Continue lisinopril DVT Ppx: SCDs for now given hematoma seen on spinal CT Code status: FULL per discussion with patient/ at bedside PCP: Michael Dispo: pt/ot for further recs, family wants SNF Admission and Anticipated Discharge Date Admission Date: October 29, 2024 Subjective patient was seen laying in bed Noted that her pain was not controlled at the time Hard of hearing States pain is 7 or 8 discussion with 2 of her sons at bedside. They are concerned that her pain is not improving and wanted to know the long-term plan They were agreeable to a palliative care consult in addition to pain management for long-term treatment Of her pain They were also requesting case management callback. sales promotion manager sent [employer] text. Review of Systems Review of Systems: All systems reviewed & are unremarkable except as noted in Subjective Physical Exam Physical Exam: General: Alert, oriented. Psych: Appropriate mood and affect Neuro: difficulty with movements in the bed HEENT: NC/AT CV: RRR Resp: Breath sounds clear bilaterally, no increased effort of breathing Abdomen: Soft, nontender Results & Data Results & Data Vital Signs (Past 12 Hours) Vital Signs Temp Pulse Resp BP Pulse Ox O2 Del Method 11/01/24 07:42 36.7 C 74 18 164/98 H 94 Room Air (1) Thoracic spine fracture Encounter type: initial encounter Fracture morphology: unspecified fracture morphology Fracture type: closed Thoracic vertebra fracture level: T11 Qualified Code(s): S22.089A - Unspecified fracture of T11-T12 vertebra, initial encounter for closed fracture
[2024-11-01] MEDS: ONDANSETRON INJ 2 MG/ML 2 ML VIAL IV PRN (17:54)
[2024-11-02 07:17] LABS: Hematocrit (blood only) 36.7 % (37.0-47.0); Hemoglobin 12.5 g/dl (12.0-16.0); Mean Corpuscular Hemoglobin 28.7 pg (25.0-34.0); Mean Corpuscular Hgb Conc 34.1 g/dL (32.0-36.0); Mean Corpuscular Volume 84.4 fL (80.0-100.0); Mean Platelet Volume 8.8 fL (9.4-12.4); Platelet Count 308 K/uL (130-400); RDW Coefficient of Variation 15.1 % (11.5-14.5); RDW Standard Deviation 46.4 fL (36.4-46.3); Red Blood Count 4.35 M/uL (4.20-5.40); White Blood Count 9.74 K/ul (4.8-10.8)
[2024-11-02 07:38] LABS: BUN Creatinine Ratio 16.9 (10-20); Calcium 9.7 mg/dl (8.6-10.3); Creatinine Clr Calc Pharmacy 52.6 ml/min; Potassium 4.1 mmol/L (3.5-5.1)
--- NOTE | 2024-11-02 11:45 | Palliative Care Consultation ---
Date of Consultation November 02, 2024 Assessment & Plan (1) Palliative care by specialist: (2) Back pain of thoracolumbar region: Pain appears well managed with current medications. Continue Tramadol Hcl 50 Mg Tablet PO Q4H PRN, pt has used 2-3 doses per day on average with no use of the prn morphine. Plan This is an 88-year-old female with PMH of hypertension, CKD 3, recent admission for fall and subsequent T11-12 compression fractures discharged to [facility] on who returns to ED with uncontrolled pain. Assessed pt at bedside, she is drowsy but awake and pleasantly confused. No visitors present. Pt. appeared comfortable, breathing easily and in NAD. She shared that her pain is better, and could not qualify other than to say "it is not bothersome but is still there". She was able to take deep breath without increase in pain and her muscles are generally relaxed. She has used minimal PRN medications since the increase in dose yesterday. Encouraged pt to utilize her medications to manage her pain. Helped her to understand that given her thoracic spinal fractures it is unrealistic to expect complete pain relief. Discussed plan for continuing same pain mgmt regime and encouraged. Attempt made to contact pt's spouse Joaquim by phone, no answer, VM left. History of Present Illness Reason for Consultation: pain management Requesting Physician: Sarah Lopez MD Attending Physician: Kirti Jose MD History of Present Illness This is an 88-year-old female that fell last month and sustained a T11 and T12 compression fracture. She was provided with a TLSO back brace and discharged to rehab facility with the ability to take oxycodone for pain. While in the rehab facility she became confused and hypoxic so she was sent back to the [facility]. Oxycodone was discontinued and she was placed on tramadol 25 mg every 4 hours if needed as well as IV morphine if necessary for breakthrough pain. She did tolerate tramadol 25 mg every 4 hours without side effects but does not provide adequate pain control. Pain management saw pt on 11/01/24 and increased tramadol to 50mg Q4h PRN with 3mg morphine IVP for breakthrough pain. Palliative care has also been consulted for pain management on 11/01. Allergies Allergy/AdvReac Type Severity Reaction Status Date / Time No Known Allergies Allergy Verified 08/12/24 08:41 Home Medications Medication Instructions Recorded Confirmed Type acetaminophen 500 mg tablet 1,000 mg PO Q8H 10/29/24 10/29/24 History cholecalciferol (vitamin D3) 50 50 mcg PO DAILY 10/29/24 10/29/24 History mcg (2,000 unit) tablet docusate sodium 100 mg capsule 100 mg PO BID 10/29/24 10/29/24 History heparin (porcine) 5,000 unit/mL 5,000 unit subcut Q12H 10/29/24 10/29/24 History injection solution lidocaine 4 % topical patch 1 patch topical DAILY 10/29/24 10/29/24 History lisinopril 20 mg tablet 20 mg PO DAILY 10/29/24 10/29/24 History ondansetron 4 mg disintegrating 4 mg PO Q6H PRN Nausea And Vomiting 10/29/24 10/29/24 History tablet pantoprazole 40 mg tablet,delayed 40 mg PO DAILY 10/29/24 10/29/24 History release Patient History Medical History Hard of hearing Surgical History History of cataract surgery LEFT History of colonoscopy S/P appendectomy HX S/P total knee arthroplasty HX bilateral, Dr Fuentes at [facility] Family History Father Pancreatic cancer Mother Alzheimer disease Sister Non Hodgkin's lymphoma Denies family history of Ovarian cancer Prostate cancer Myocardial infarction Breast cancer Colorectal cancer Social History Smoking Status: Never smoker Second Hand Exposure: No; Do You Dip or Chew Tobacco: No; Hx Alcohol Use: No Hx Substance Use: No Preferred Language: Beninese Communication Ability: Effective Visual Impairment: Limited Hearing Ability: Use of Hearing Aid Bioprocess Development Engineer Required: No Beliefs That Will Affect Care: None marital status: Current Living Situation: Snf Current Living Situation Comment: Lives in a home with current occupational status: retired Feels Safe at Home: Yes Childhood Exposure to Second-Hand Smoke: No Diet: regular Diet Comment: Regular caffeine: Yes (little amount) during the past year weight has: remained stable Dental Care, Regularly: Yes Physical Activity Frequency: Does not Exercise Seatbelt Use: always Sunscreen Use: No Assistive Devices: Walker Review of Systems Review of Systems: All systems reviewed & are unremarkable except as noted in HPI & below Musculoskeletal: + back pain and + neck pain generalized lower back pain, pt unable to describe quality of pain nor rate it Physical Exam Physical Exam: General: Alert, oriented. Psych: Appropriate mood and affect Neuro: difficulty with movements in the bed HEENT: NC/AT CV: RRR Resp: Breath sounds clear bilaterally, no increased effort of breathing Abdomen: Soft, nontender Results & Data Vital Signs (Past 12 Hours) Vital Signs Temp Pulse Resp BP Pulse Ox O2 Del Method 11/02/24 07:38 36.7 C 74 16 155/97 H 91 Room Air Laboratory Results Abnormal lab results 11/02/24 Range/Units 06:34 Hct 36.7 L (37.0-47.0) % RDW Std Deviation 46.4 H (36.4-46.3) fL RDW Coeff of Chris 15.1 H (11.5-14.5) % MPV 8.8 L (9.4-12.4) fL Sodium 130 L (136-145) mmol/L Chloride 95 L (98-107) mmol/L Glucose 138 H (70-99(Fasting)) mg/dl Diagnostic Findings Thoracic Spine CT 10/29/24 12:19 CT thoracic spine wo con CLINICAL HISTORY: reeval back frx's, pain TECHNIQUE: Multidetector row helical CT of the thoracic spine was performed without administration of intravenous contrast. Coronal and sagittal refo rmations were obtained. Automated dose lowering techniques and/or adjustment according to patient size were utilized for this exam. CT DOSE: 1280.45 mGy.cm Comparison: Comparison is made to CT lumbar spine 10/14/2024 FINDINGS: There is an acute fracture of the inferior endplate of T11 and superior endplate of T12 with surrounding hematoma. There is approximately 4 mm retropulsion. Degenerative changes are noted in the visualized spine. Vertebral body alignment is within normal limits. Atelectasis is seen in the left greater the right lung base. IMPRESSION: Acute fracture of the inferior aspect of T11 and the superior endplate of T12 with associated hematoma. There is approximately 4 mm retropulsion. ACT 112: Negative or not required by law. Electronically signed by: Curtis Elliott M.D. 10/29/2024 1:18 PM Chest X-Ray 10/29/24 12:28 XR chest 1V portable CLINICAL HISTORY: wheeze R lower chest TECHNIQUE: Single frontal radiograph of the chest was obtained. Comparison: Comparison is made to chest radiograph 06/20/2024 FINDINGS: No lines and tubes are seen. Cardiomegaly is noted. The lungs are clear. No evidence of pleural effusion or pneumothorax. IMPRESSION: No acute abnormalities and in particular no radiographic evidence of pneumonia. ACT 112: Negative or not required by law. Electronically signed by: Curtis Elliott M.D. 10/29/2024 1:12 PM Medications Administered Current Inpatient Medications Acetaminophen (Acetaminophen 500 Mg Tab) 1,000 mg PO Q8H [facility] Stop: 11/28/24 21:59 Last Admin: 11/02/24 05:50 Dose: 1,000 mg Al Hydrox/Mg Hydrox/Simethicone (Aluminum/Magnesium Susp 30 Ml Udc) 30 ml PO Q6H PRN PRN Reason: Dyspepsia Stop: 11/28/24 18:45 Docusate Sodium (Docusate Sodium 100 Mg Cap) 100 mg PO BID [facility] Stop: 11/28/24 20:59 Last Admin: 11/02/24 10:10 Dose: 100 mg Lidocaine (Lidocaine 5% 1 Patch) 1 patch TD DAILY [facility] Stop: 11/29/24 08:59 Last Admin: 11/02/24 10:10 Dose: 1 patch Lisinopril (Lisinopril 20 Mg Tab) 20 mg PO DAILY [facility] Stop: 11/29/24 08:59 Last Admin: 11/02/24 10:11 Dose: 20 mg Miscellaneous (Remove Lidoderm Patch) 1 each N/A DAILY@2100 [facility] Stop: 11/28/24 20:59 Last Admin: 11/01/24 20:10 Dose: 1 each Morphine Sulfate (Morphine Sulfate 4 Mg/Ml 1 Ml Carp\\Vial) 3 mg IV Q6H PRN PRN Reason: Severe Pain (Scale 7, 8, 9,10) Stop: 11/12/24 16:27 Last Admin: 10/31/24 15:40 Dose: 3 mg Ondansetron HCl (Ondansetron Inj 2 Mg/Ml 2 Ml Vial) 4 mg IV Q6H PRN PRN Reason: Nausea Stop: 11/28/24 18:45 Last Admin: 11/02/24 08:14 Dose: 4 mg Pantoprazole Sodium (Pantoprazole 40 Mg Tab) 40 mg PO DAILY [facility] Stop: 11/29/24 08:59 Last Admin: 11/02/24 10:11 Dose: 40 mg Polyethylene Glycol (Polyethylene (Miralax) 17 Gm Pack) 17 gm PO DAILY PRN PRN Reason: Constipation Stop: 11/28/24 18:45 Polyethylene Glycol (Polyethylene (Miralax) 17 Gm Pack) 17 gm PO BID [facility] Stop: 11/30/24 20:59 Last Admin: 11/02/24 10:11 Dose: Not Given Tramadol HCl (Tramadol Hcl 50 Mg Tablet) 50 mg PO Q4H PRN PRN Reason: Moderate Pain (Scale 4, 5, 6) Stop: 11/28/24 16:27 Last Admin: 11/02/24 10:14 Dose: 50 mg Vitamin D (Cholecalciferol 25 Mcg (1000 Units) Tab) 50 mcg PO DAILY [facility] Stop: 11/29/24 08:59 Last Admin: 11/02/24 10:10 Dose: 50 mcg PG Care Time/CCT Total # of Minutes Spent Total Time Spent with Patient: Total time spent is greater than 50% in coordination of care (as documented) at patient's floor/unit and/or counseling patient: [place] [address] IN/OBS CONSULT LVL 4,60M Patient Type New History Expanded Problem Focused Exam Expanded Problem Focused Medical Decision Making Moderate Complexity Diagnoses Palliative care by specialist Z51.5 Back pain of thoracolumbar region M54.50; M54.6
--- NOTE | 2024-11-02 16:20 | Hospitalist Progress Note ---
Date of Service November 02, 2024 Assessment & Plan (1) Thoracic spine fracture: (2) Ambulatory dysfunction: (3) Intractable back pain: (4) Hyponatremia: (5) HTN (hypertension): (6) CKD (chronic kidney disease), stage III: (7) Hard of hearing: Plan This is an 88-year-old female with PMH of hypertension, CKD 3, recent admission for fall and subsequent T11-12 compression fractures discharged to [facility] on who returns this morning due to uncontrolled pain. T11-12 compression fractures from recent fall Intractable pain Ambulatory dysfunction Admitted at [facility] following fall at home, found to have acute nondisplaced fractures are seen within the inferior endplate of T11 and superior endplate of T12 at that time. No retropulsion at that time Discharged to [facility] but brought in by family today due to uncontrolled pain Continue scheduled Tylenol, lidocaine patch, adding PRN tramadol for moderate pain and IV morphine for severe Received 125mg IV Solu-medrol in ED x 1 Repeat imaging today with acute fracture of the inferior aspect of T11 and the superior endplate of T12 with associated hematoma. There is approximately 4 mm retropulsion ED discussed with motion picture equipment machinist Dr. Orozco- no surgical intervention at this time, recommended TLSO brace and pain mgmt Avoid NSAIDs given Cr Cl and hematoma noted on CT spine Routine ortho consult for further recs PT / OT evaluation Fall precautions bowel regimen given the chronic use of narcotics Family interested in SNF rehab if possible due to [facility] too rigorous based on age 0110/30/24- pain controlled, ortho recommending use of TLSO brace once more 10/31/24 pain Management consult placed 11/01/24- Seen by pain management. They recommended increasing tramadol dose. 2 sons at bedside today and upon further discussion are agreeable to palliative care evaluation for long-term pain management-patch? Sons also wanted to know what the plan was for dispo, case management notified via [place]. Appreciate pain management and Ortho evaluation and recommendations Her current pain medications having been well enough Will discontinue tramadol and replace with oxycodone Continue with PT and OT and possible discharge in a day or 2 Acute Kidney Injury on CKD creatinine elevated to 1.24 on October 31 baseline in normal range usually IV fluids Avoid nephrotoxic meds as able continue to monitor Improved Altered mental status Possible confusion noted at [facility] earlier today, in setting of oxycodone Mentation seems to be at baseline while in ED Consider CT head if mentation changes Afebrile, no evidence of infection on CXR, Resp viral panel negative, UA pending Hyponatremia work-up as below Improved Hyponatremia Na 129 today, was 134 on 10/18 Appears dry on exam, Cl also low at 92 Given 500ml NSS in ED Serum osm, urine osm, urine Na ordered Improved-sodium level remained low at 130 advised to take more salt in diet HTN Continue lisinopril DVT Ppx: SCDs for now given hematoma seen on spinal CT Code status: FULL per discussion with patient/ at bedside PCP: Michael Dispo: pt/ot for further recs, family wants SNF Discussed with the son and also the daughter Admission and Anticipated Discharge Date Admission Date: October 29, 2024 Subjective 11/02/2024 The patient was seen and examined in presence of the family members She complains low back pain which is not controlled with current medications Could not participate in physical therapy due to pain Denies any radiation of pain Review of Systems Review of Systems: All systems reviewed and are unremarkable except as noted below Physical Exam Physical Exam: Lying in bed with moderate pain at the lower back Constitutional: well developed, well nourished, + ill appearing and + obese Eyes: PERRL, conjunctivae normal, anicteric sclerae ENMT: external ear and nose normal, oropharynx normal Neck: trachea midline, no thyromegaly Respiratory: no respiratory distress Auscultation: lungs clear to auscultation bilaterally Cardiovascular: Rate/Rhythm: regular rate and regular rhythm; not tachycardic Heart Sounds: normal S1 and normal S2; no murmur Extremities: no edema Gastrointestinal (Abdomen): Inspection/Auscultation: normal bowel sounds; abdomen not distended Percussion/Palpation: abdomen soft; abdomen nontender Musculoskeletal: Low back pain but no acute arthritis involving any of the joint Neurologic: normal touch/pain/proprioception and moves all extremities; no focal motor deficits Lymphatic: no cervical or axillary lymphadenopathy Results & Data Results & Data Vital Signs (Past 12 Hours) Vital Signs Temp Pulse Resp BP Pulse Ox O2 Del Method 11/02/24 15:39 36.8 C 115 H 16 145/106 H 90 Room Air 11/02/24 08:00 Room Air 11/02/24 07:38 36.7 C 74 16 155/97 H 91 Room Air Laboratory Results Short CBC 11/02/24 Range/Units 06:34 WBC 9.74 (4.8-10.8) K/ul Hgb 12.5 (12.0-16.0) g/dl Hct 36.7 L (37.0-47.0) % Plt Count 308 (130-400) K/uL BMP 11/02/24 06:34 Sodium 130 L Potassium 4.1 Chloride 95 L Carbon Dioxide 28 BUN 14 Creatinine 0.83 Glucose 138 H Calcium 9.7 Medications Administered Current Inpatient Medications Hydrocodone Bitart/Acetaminophen (Hydrocodone/Acetamophen 5/325mg Tab) 1 tab PO Q4H PRN PRN Reason: Pain Stop: 11/16/24 11:46 Al Hydrox/Mg Hydrox/Simethicone (Aluminum/Magnesium Susp 30 Ml Udc) 30 ml PO Q6H PRN PRN Reason: Dyspepsia Stop: 11/28/24 18:45 Docusate Sodium (Docusate Sodium 100 Mg Cap) 100 mg PO BID [facility] Stop: 11/28/24 20:59 Last Admin: 11/02/24 10:10 Dose: 100 mg Lidocaine (Lidocaine 5% 1 Patch) 1 patch TD DAILY [facility] Stop: 11/29/24 08:59 Last Admin: 11/02/24 10:10 Dose: 1 patch Lisinopril (Lisinopril 20 Mg Tab) 20 mg PO DAILY [facility] Stop: 11/29/24 08:59 Last Admin: 11/02/24 10:11 Dose: 20 mg Miscellaneous (Remove Lidoderm Patch) 1 each N/A DAILY@2100 [facility] Stop: 11/28/24 20:59 Last Admin: 11/01/24 20:10 Dose: 1 each Morphine Sulfate (Morphine Sulfate 4 Mg/Ml 1 Ml Carp\Vial) 3 mg IV Q6H PRN PRN Reason: Severe Pain (Scale 7, 8, 9,10) Stop: 11/12/24 16:27 Last Admin: 10/31/24 15:40 Dose: 3 mg Ondansetron HCl (Ondansetron Inj 2 Mg/Ml 2 Ml Vial) 4 mg IV Q6H PRN PRN Reason: Nausea Stop: 11/28/24 18:45 Last Admin: 11/02/24 08:14 Dose: 4 mg Pantoprazole Sodium (Pantoprazole 40 Mg Tab) 40 mg PO DAILY [facility] Stop: 11/29/24 08:59 Last Admin: 11/02/24 10:11 Dose: 40 mg Polyethylene Glycol (Polyethylene (Miralax) 17 Gm Pack) 17 gm PO DAILY PRN PRN Reason: Constipation Stop: 11/28/24 18:45 Polyethylene Glycol (Polyethylene (Miralax) 17 Gm Pack) 17 gm PO BID [facility] Stop: 11/30/24 20:59 Last Admin: 11/02/24 10:11 Dose: Not Given Vitamin D (Cholecalciferol 25 Mcg (1000 Units) Tab) 50 mcg PO DAILY [facility] Stop: 11/29/24 08:59 Last Admin: 11/02/24 10:10 Dose: 50 mcg (1) Thoracic spine fracture Encounter type: initial encounter Fracture morphology: unspecified fracture morphology Fracture type: closed Thoracic vertebra fracture level: T11 Qualified Code(s): S22.089A - Unspecified fracture of T11-T12 vertebra, initial encounter for closed fracture
[2024-11-02] MEDS: HYDROCODONE/ACETAMOPHEN 5/325MG TAB PO PRN (20:02)
[2024-11-03 07:33] VITALS: RESP 16; TEMP 98.1; O2SAT 91
[2024-11-03 08:00] LABS: Hematocrit (blood only) 35.1 % (37.0-47.0); Hemoglobin 11.6 g/dl (12.0-16.0); Mean Corpuscular Hemoglobin 28.2 pg (25.0-34.0); Mean Corpuscular Volume 85.2 fL (80.0-100.0); Platelet Count 280 K/uL (130-400); RDW Coefficient of Variation 15.3 % (11.5-14.5); RDW Standard Deviation 47.4 fL (36.4-46.3); Red Blood Count 4.12 M/uL (4.20-5.40); White Blood Count 8.66 K/ul (4.8-10.8)
[2024-11-03 08:05] LABS: BUN Creatinine Ratio 17.6 (10-20); Calcium 9.4 mg/dl (8.6-10.3); Creatinine Clr Calc Pharmacy 51.3 ml/min; Potassium 4.1 mmol/L (3.5-5.1)
--- NOTE | 2024-11-03 11:06 | Hospitalist Progress Note ---
Date of Service November 03, 2024 Assessment & Plan (1) Thoracic spine fracture: (2) Ambulatory dysfunction: (3) Intractable back pain: (4) Hyponatremia: (5) HTN (hypertension): (6) CKD (chronic kidney disease), stage III: (7) Hard of hearing: Plan This is an 88-year-old female with PMH of hypertension, CKD 3, recent admission for fall and subsequent T11-[address] discharged to [facility] on who returns this morning due to uncontrolled pain. T11-12 compression fractures from recent fall Intractable pain Ambulatory dysfunction Admitted at [facility] following fall at home, found to have acute nondisplaced fractures are seen within the inferior endplate of T11 and superior endplate of T12 at that time. No retropulsion at that time Discharged to [facility] but brought in by family today due to uncontrolled pain Continue scheduled Tylenol, lidocaine patch, adding PRN tramadol for moderate pain and IV morphine for severe Received 125mg IV Solu-medrol in ED x 1 Repeat imaging today with acute fracture of the inferior aspect of T11 and the superior endplate of T12 with associated hematoma. There is approximately 4 mm retropulsion ED discussed with community relations representative Dr. Orozco- no surgical intervention at this time, recommended TLSO brace and pain mgmt Avoid NSAIDs given Cr Cl and hematoma noted on CT spine Routine ortho consult for further recs PT / OT evaluation Fall precautions bowel regimen given the chronic use of narcotics Family interested in SNF rehab if possible due to [facility] too rigorous based on age 0110/30/24- pain controlled, ortho recommending use of TLSO brace once more 10/31/24 pain Management consult placed 11/01/24- Seen by pain management. They recommended increasing tramadol dose. 2 sons at bedside today and upon further discussion are agreeable to palliative care evaluation for long-term pain management-patch? Sons also wanted to know what the plan was for dispo, case management notified via [place]. Appreciate pain management and Ortho evaluation and recommendations Her current pain medications having been well enough Will discontinue tramadol and replace with oxycodone Continue with PT and OT and possible discharge in a day or 2 Remains medically stable without any significant symptoms Will be discharged this afternoon to SNF to continue with the physical therapy. Acute Kidney Injury on CKD creatinine elevated to 1.24 on October 31 baseline in normal range usually IV fluids Avoid nephrotoxic meds as able continue to monitor Improved Altered mental status Possible confusion noted at [facility] earlier today, in setting of oxycodone Mentation seems to be at baseline while in ED Consider CT head if mentation changes Afebrile, no evidence of infection on CXR, Resp viral panel negative, UA pending Hyponatremia work-up as below No more change in mental status Hyponatremia Na 129 today, was 134 on 10/18 Appears dry on exam, Cl also low at 92 Given 500ml NSS in ED Serum osm, urine osm, urine Na ordered Improved-sodium level remained low at 130 advised to take more salt in diet Sodium level remains low at 129 and she will be advised to take extra salt in her diet Fluid restricted to 1.5 L a day HTN Continue lisinopril DVT Ppx: SCDs for now given hematoma seen on spinal CT Code status: FULL per discussion with patient/ at bedside PCP: Michael Dispo: pt/ot for further recs, family wants SNF Discussed with the son and also the daughter She will be discharged to SNF this afternoon Discussed with her son in detail Admission and Anticipated Discharge Date Admission Date: October 29, 2024 Subjective 11/02/2024 The patient was seen and examined in presence of the family members She complains low back pain which is not controlled with current medications Could not participate in physical therapy due to pain Denies any radiation of pain 11/03/2024 The patient was seen and examined in medical floor Her pain is well-controlled with current pain medications She denies pain at rest She will be discharged to rehab facility this Review of Systems Review of Systems: All systems reviewed and are unremarkable except as noted below Physical Exam Physical Exam: Lying in bed with moderate pain at the lower back Constitutional: well developed, well nourished, + ill appearing and + obese Eyes: PERRL, conjunctivae normal, anicteric sclerae ENMT: external ear and nose normal, oropharynx normal Neck: trachea midline, no thyromegaly Respiratory: no respiratory distress Auscultation: lungs clear to auscultation bilaterally Cardiovascular: Rate/Rhythm: regular rate and regular rhythm; not tachycardic Heart Sounds: normal S1 and normal S2; no murmur Extremities: no edema Gastrointestinal (Abdomen): Inspection/Auscultation: normal bowel sounds; abdomen not distended Percussion/Palpation: abdomen soft; abdomen nontender Neurologic: normal touch/pain/proprioception and moves all extremities; no focal motor deficits Lymphatic: no cervical or axillary lymphadenopathy Results & Data Results & Data Vital Signs (Past 12 Hours) Vital Signs Temp Pulse Resp BP Pulse Ox O2 Del Method 11/03/24 07:30 36.7 C 72 16 107/70 91 Room Air Laboratory Results Short CBC 11/03/24 Range/Units 06:24 WBC 8.66 (4.8-10.8) K/ul Hgb 11.6 L (12.0-16.0) g/dl Hct 35.1 L (37.0-47.0) % Plt Count 280 (130-400) K/uL BMP 11/03/24 06:24 Sodium 129 L Potassium 4.1 Chloride 94 L Carbon Dioxide 29 BUN 15 Creatinine 0.85 Glucose 116 H Calcium 9.4 Medications Administered Current Inpatient Medications Hydrocodone Bitart/Acetaminophen (Hydrocodone/Acetamophen 5/325mg Tab) 1 tab PO Q4H PRN PRN Reason: Pain Stop: 11/16/24 11:46 Last Admin: 11/03/24 05:41 Dose: 1 tab Al Hydrox/Mg Hydrox/Simethicone (Aluminum/Magnesium Susp 30 Ml Udc) 30 ml PO Q6H PRN PRN Reason: Dyspepsia Stop: 11/28/24 18:45 Docusate Sodium (Docusate Sodium 100 Mg Cap) 100 mg PO BID [facility] Stop: 11/28/24 20:59 Last Admin: 11/03/24 08:25 Dose: 100 mg Lidocaine (Lidocaine 5% 1 Patch) 1 patch TD DAILY [facility] Stop: 11/29/24 08:59 Last Admin: 11/03/24 08:26 Dose: 1 patch Lisinopril (Lisinopril 20 Mg Tab) 20 mg PO DAILY [facility] Stop: 11/29/24 08:59 Last Admin: 11/03/24 08:26 Dose: 20 mg Miscellaneous (Remove Lidoderm Patch) 1 each N/A DAILY@2100 [facility] Stop: 11/28/24 20:59 Last Admin: 11/02/24 20:03 Dose: 1 each Morphine Sulfate (Morphine Sulfate 4 Mg/Ml 1 Ml Carp\Vial) 3 mg IV Q6H PRN PRN Reason: Severe Pain (Scale 7, 8, 9,10) Stop: 11/12/24 16:27 Last Admin: 10/31/24 15:40 Dose: 3 mg Ondansetron HCl (Ondansetron Inj 2 Mg/Ml 2 Ml Vial) 4 mg IV Q6H PRN PRN Reason: Nausea Stop: 11/28/24 18:45 Last Admin: 11/02/24 08:14 Dose: 4 mg Pantoprazole Sodium (Pantoprazole 40 Mg Tab) 40 mg PO DAILY [facility] Stop: 11/29/24 08:59 Last Admin: 11/03/24 08:26 Dose: 40 mg Polyethylene Glycol (Polyethylene (Miralax) 17 Gm Pack) 17 gm PO DAILY PRN PRN Reason: Constipation Stop: 11/28/24 18:45 Polyethylene Glycol (Polyethylene (Miralax) 17 Gm Pack) 17 gm PO BID [facility] Stop: 11/30/24 20:59 Last Admin: 11/03/24 08:25 Dose: 17 gm Vitamin D (Cholecalciferol 25 Mcg (1000 Units) Tab) 50 mcg PO DAILY [facility] Stop: 11/29/24 08:59 Last Admin: 11/03/24 08:26 Dose: 50 mcg (1) Thoracic spine fracture Encounter type: initial encounter Fracture morphology: unspecified fracture morphology Fracture type: closed Thoracic vertebra fracture level: T11 Qualified Code(s): S22.089A - Unspecified fracture of T11-T12 vertebra, initial encounter for closed fracture
[2024-11-03 13:40] VITALS: BP 135/87; PULSE 96
--- NOTE | 2024-11-04 07:52 | Discharge Summary ---
Date of Service November 04, 2024 Admission HPI Per Admitting Provider This is an 88-year-old female with PMH of hypertension, CKD 3, recent admission for fall and subsequent T11-12 compression fractures discharged to [facility] on who returns this morning due to uncontrolled pain. History primarily obtained from daughter and grandson at bedside due to patient being very hard of hearing. Has been on scheduled Tylenol, lidocaine patch and as needed oxycodone at [facility] but is still experience a lot of pain. Reportedly hypoxic overnight after oxycodone dose and now on oxygen, which is not her baseline. Family brought her head for optimization of pain control as well as evaluation for SNF rehab as family feels inpatient rehab is to insensate for patient and she had trouble participating fully. Reports chronic urinary incontinence and ambulatory dysfunction. Already has a TLSO brace from previous admission that is in her daughter's car. Rehab note mentions possible confusion this morning thought to be 2/2 pain control with narcotics. Appears to be at baseline in ED with family present. Reports she often is forgetful and often unsure of date but answers simple questions appropriately. Denies fever/chills, headache, CP, SOB, N/V, abdominal pain, diarrhea or constipation. No bowel or bladder changes or new weakness in BLE. Did have emesis x 1 this AM but grandson thinks she had a capsule pill get stuck. Has not recurred. Completed abx course for E coli UTI noted on previous admission. Admission Exam Per Admitting Provider Physical Exam: General Appearance: WD/WN, vitals as above, NAD, sitting up in bed, pleasant, hard of hearing but following conversation Head: normocephalic, atraumatic Eyes: normal inspection, PERRL, conjunctivae normal, anicteric sclerae ENT: external ear and nose normal, oropharynx dry mucous membranes Neck: normal visual inspection Respiratory: normal respiratory effort, scattered rhonchi improved with cough. No accessory muscle use Cardiovascular: regular rate, rhythm, no BLE edema Chest: normal inspection of chest Abdomen/GI: normal bowel sounds, soft, nontender, no hepatosplenomegaly Extremities/Musculoskeletal: + Thoracic spine with TTP along spinous processes, lidocaine patch in place, no deformities noted, extremities motor strength 5/5 Neurologic: PERRL, EOMI, accommodation nl, no face palsy, no dysarthria, CN's II-XI intact bilaterally and moves all extremities Psychiatric: A+Ox3, euthymic affect Skin: no rashes, normal color, warm/dry Principal Diagnosis T11 -12 compression fracture, hyponatremia, hypertension Discharge Exam Lying in bed with moderate pain at the lower back Constitutional well developed, well nourished, + ill appearing and + obese Eyes PERRL, conjunctivae normal, anicteric sclerae ENMT external ear and nose normal, oropharynx normal Neck trachea midline, no thyromegaly Respiratory no respiratory distress Auscultation: lungs clear to auscultation bilaterally Cardiovascular Rate/Rhythm: regular rate and regular rhythm; not tachycardic Heart Sounds: normal S1 and normal S2; no murmur Extremities: no edema Gastrointestinal (Abdomen) Inspection/Auscultation: normal bowel sounds; abdomen not distended Percussion/Palpation: abdomen soft; abdomen nontender Neurologic normal touch/pain/proprioception and moves all extremities; no focal motor deficits Lymphatic no cervical or axillary lymphadenopathy Discharge Data Allergies Allergy/AdvReac Type Severity Reaction Status Date / Time No Known Allergies Allergy Verified 08/12/24 08:41 Consultations 10/29/24 14:33 ED Decision to Admit Stat 10/29/24 16:26 Consult Orthopedic Spine Surgery Routine 10/31/24 10:14 Consult Pain Management Routine 11/01/24 12:17 Consult Palliative Care Routine Ordered Studies 10/29/24 12:19 CT thoracic spine wo con Stat Hospital Course (1) Thoracic spine fracture: (2) Ambulatory dysfunction: (3) Intractable back pain: (4) Hyponatremia: (5) HTN (hypertension): (6) CKD (chronic kidney disease), stage III: (7) Hard of hearing: Plan This is an 88-year-old female with PMH of hypertension, CKD 3, recent admission for fall and subsequent T11-12 compression fractures discharged to [facility] on who returns this morning due to uncontrolled pain. T11-12 compression fractures from recent fall Intractable pain Ambulatory dysfunction Admitted at [facility] following fall at home, found to have acute nondisplaced fractures are seen within the inferior endplate of T11 and superior endplate of T12 at that time. No retropulsion at that time Discharged to [facility] but brought in by family today due to uncontrolled pain Continue scheduled Tylenol, lidocaine patch, adding PRN tramadol for moderate pain and IV morphine for severe Received 125mg IV Solu-medrol in ED x 1 Repeat imaging today with acute fracture of the inferior aspect of T11 and the superior endplate of T12 with associated hematoma. 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 They recommended increasing tramadol dose. 2 sons at bedside today and upon further discussion are agreeable to palliative care evaluation for long-term pain management-patch? Sons also wanted to know what the plan was for dispo, case management notified via [place]. Appreciate pain management and Ortho evaluation and recommendations Her current pain medications having been well enough Will discontinue tramadol and replace with oxycodone Continue with PT and OT and possible discharge in a day or 2 Remains medically stable without any significant symptoms Will be discharged this afternoon to SNF to continue with the physical therapy. Acute Kidney Injury on CKD creatinine elevated to 1.24 on October 31 baseline in normal range usually IV fluids Avoid nephrotoxic meds as able continue to monitor Improved Altered mental status Possible confusion noted at [facility] earlier today, in setting of oxycodone Mentation seems to be at baseline while in ED Consider CT head if mentation changes Afebrile, no evidence of infection on CXR, Resp viral panel negative, UA pending Hyponatremia work-up as below No more change in mental status Hyponatremia Na 129 today, was 134 on 10/18 Appears dry on exam, Cl also low at 92 Given 500ml NSS in ED Serum osm, urine osm, urine Na ordered Improved-sodium level remained low at 130 advised to take more salt in diet Sodium level remains low at 129 and she will be advised to take extra salt in her diet Fluid restricted to 1.5 L a day HTN Continue lisinopril DVT Ppx: SCDs for now given hematoma seen on spinal CT Code status: FULL per discussion with patient/ at bedside PCP: Michael Dispo: pt/ot for further recs, family wants SNF Discussed with the son and also the daughter She will be discharged to SNF this afternoon Discussed with her son in detail Total Time Total Time Spent Total Time Spent (In Minutes): 35 minutes Discharge Plan Discharge Items Patient Disposition: Transfer Group Home Fac Reason For Visit: COMPRESSION Fx,PAIN CONTROL Discharge Diagnosis: T11 -12 compression fracture, hyponatremia, hypertension Condition on Discharge: Fair Activity: Resume your previous activity Activity Comment: Will need to continue PT and OT Non-emergency contact: Primary Care Provider Call non-emergency contact if: you have any medication questions and your symptoms worsen Follow-up/Referrals: Veronica Rodriguez MD [Primary Care Provider] - Breanna Jones DNP [Nurse Practitioner] - 11/17/24 1:30 pm Diet: Regular Fluids: 1500ml (6 cups) Diet Texture: Easy to Chew Addtl Attending Provider Instructions: Please take precaution to avoid falls Use the back brace while you are mobile Try to take less of narcotic pain medication to avoid drowsiness,confusion,constipation and addiction Try to take extra salt in your meals Keep appointments with your healthcare provider Pending Studies at Discharge: No Stand-Alone Forms: My [facility] Skilled Items Patient informed of condition?: Yes DNR: No Discharge Level of Care: Skilled Communicable Disease: No Discharge Prognosis: Stable Lines: None Urinary Catheter: Yes Medications and DC Order Prescriptions: New hydrocodone-acetaminophen 5-325 mg Tablet 1 tab PO Q4H PRN (Reason: pain) Qty: 20 0RF Continued lidocaine 4 % Adhesive Patch,Medicated 1 patch TOPICAL DAILY pantoprazole 40 mg Tablet,Delayed Release (Dr/Ec) 40 mg PO DAILY docusate sodium 100 mg Capsule 100 mg PO BID ondansetron 4 mg Tablet,Disintegrating 4 mg PO Q6H PRN (Reason: Nausea And Vomiting) cholecalciferol (vitamin D3) 50 mcg (2,000 unit) Tablet 50 mcg PO DAILY lisinopril 20 mg tablet 20 mg PO DAILY Discontinued acetaminophen 500 mg Tablet 1,000 mg PO Q8H heparin (porcine) 5,000 unit/mL Solution 5,000 unit SUBCUT Q12H Discharge Orders: Discharge Order (Routine); Ordered 11/03/24 Ordered By: Kirti Jose Admission Data Admit Date/Time: 10/29/24 16:26 Attending Provider: Kirti Jose Admit Provider: Angel Gutierrez Primary Care Provider: Veronica Rodriguez Other Providers: Manish Orozco; Angel Gutierrez; [place], [place]; [facility]; [facility]; Sarah Lopez Other Interventions: Discharge Summary Assessment (RN) Last Done: 11/03/24 13:37
== END 2024-11-03 16:30 | DRG 552 ==
LOC: ED 12:08 → SUATTDRO 16:26 → 3N 16:26
DX: I12.9 Hypertensive chronic kidney disease with stage 1 through stage 4 chronic kidney disease, or unspecified chronic kidney disease; N18.30 Chronic kidney disease, stage 3 unspecified; S22.080A Wedge compression fracture of T11-T12 vertebra, initial encounter for closed fracture; R26.89 Other abnormalities of gait and mobility; N17.9 Acute kidney failure, unspecified; Y92.89 Other specified places as the place of occurrence of the external cause; R41.82 Altered mental status, unspecified; W18.30XA Fall on same level, unspecified, initial encounter; T40.605A Adverse effect of unspecified narcotics, initial encounter; E87.1 Hypo-osmolality and hyponatremia; H91.90 Unspecified hearing loss, unspecified ear